=== PATIENT | male | born 1940 | race Caucasian/White ===

== ENCOUNTER 2017-02-27 17:01 | Inpatient (IN) | payer MEDICARE, OTHER ==
[~2017-02-27] VITALS: Ht 188 cm; Wt 94.3 kg
[~2017-02-27 17:01] MED LIST: ATOR10TA PO; ESOM40CA PO; GABA-532 PO; HYDR-548 PO; HYDR12.55 PO; LOSA50TA21 PO; MELO7.5T12 PO; METO-356 PO; METO5TAB7 PO; PRED20TA PO; PREG150C PO; SOLI5TAB2 PO; TAMS0.4C34 PO
[2017-02-27 17:35] LABS: CALCIUM, SERUM 9.6 mg/dL (8.5-10.1); CARBON DIOXIDE 32 mmol/L (21-32); CHLORIDE 96 mmol/L (98-107); CREATININE 1.9 mg/dL (0.6-1.3); GLUCOSE 124 mg/dL (74-106); POTASSIUM 3.4 mmol/L (3.5-5.1); SODIUM SERUM 137 mmol/L (136-145); UREA NITROGEN, BLOOD 50 mg/dL (7-18)
[2017-02-27 17:37] LABS: BASOPHILS # (AUTO) 0.1 /CMM (0.0-0.2); BASOPHILS % (AUTO) 0.3 % (0.0-2.0); EOSINOPHILS # (AUTO) 0.2 /CMM (0.0-0.7); EOSINOPHILS % (AUTO) 0.8 % (0.0-6.0); HEMATOCRIT 40 % (39-51); HEMOGLOBIN 13.7 g/dL (13.5-17.5); LYMPHOCYTES # (AUTO) 0.5 /CMM (0.8-4.8); LYMPHOCYTES % (AUTO) 1.9 % (20.0-44.0); MEAN CORPUSCULAR HEMOGLOBIN 28 PG (26.0-33.0); MEAN CORPUSCULAR HGB CONC 34 g/dl (31.0-36.0); MEAN CORPUSCULAR VOLUME 82 fL (80-96); MONOCYTES # (AUTO) 1.1 /CMM (0.1-1.30); MONOCYTES % (AUTO) 4.2 % (2.0-12.0); NEUTROPHILS # (AUTO) 23.1 /CMM (1.8-8.9); NEUTROPHILS % (AUTO) 92.8 % (43.0-81.0); PLATELET COUNT (AUTO) 153 /CMM (150-450); RDW COEFFICIENT OF VARIATION 14.8 (11.5-15.0); RED BLOOD CELL COUNT(AUTO) 4.92 MIL/uL (4.5-6.0)
[2017-02-27 17:39] LABS: INR 1.06 (0.87-1.13)
[2017-02-27 17:44] LABS: TROPONIN I < 0.017 ng/mL (0.00-0.056)
[2017-02-27] MEDS ORDERED: ASCO500T9 PO (18:24)
[2017-02-27] MEDS ORDERED: DULO20CA PO (18:24)
[2017-02-27] MEDS ORDERED: TADA5TAB2 PO (18:24)
[2017-02-27] MEDS ORDERED: CELE200C PO (18:24)
[2017-02-27] MEDS ORDERED: BACL10TA PO (18:24)
[2017-02-27] MEDS ORDERED: VITA1TAB56 PO (18:24)
[2017-02-27] MEDS ORDERED: VITA400C24 PO (18:24)
[2017-02-27] MEDS ORDERED: OMEP40CA37 PO (18:24)
[2017-02-27] MEDS ORDERED: FURO40TA5 PO (18:24)
[2017-02-27] MEDS ORDERED: DILT360C28 PO (18:24)
[2017-02-27] MEDS ORDERED: POTA10TA15 PO (18:24)
[2017-02-27 18:45] LABS: APPEARANCE,URINE Clear (CLEAR); BILIRUBIN,URINE Negative (NEGATIVE); BLOOD, URINE Trace-lysed Ery/uL (NEGATIVE); COLOR,URINE Yellow (YELLOW); KETONES,URINE Negative (NEGATIVE); LEUKOCYTE ESTERASE ,URINE Negative (NEGATIVE); NITRITE, URINE Negative (NEGATIVE); PROTEIN,URINE Negative (NEGATIVE); UGLUCOSE Negative (NEGATIVE); UROBILINOGEN,URINE 0.2 EU/dL (0.2)
[2017-02-27] MEDS ORDERED: PIPERACILLIN /TAZOBACTAM 3.375 G in IV D5W 50 ML IV ONE (19:00)
[2017-02-27] MEDS ORDERED: IV NS 0.9% 1,000 ML BAG IV ONE ×2 (19:00)
[2017-02-27 19:11] LABS: BACTERIA,URINE Few /HPF (None Seen); SQUAMOUS EPITHELIAL CELL,UR Few /HPF (None Seen); WBC,URINE 0-2 /HPF (0-3)
[2017-02-27 19:20] LABS: BAND % (MANUAL) 19 % (0.0-5.0); MONOCYTES % (MANUAL) 7 % (0-11.0); NEUTROPHILS % (MANUAL) 74 (42-76)
[2017-02-27 19:31] LABS: BILIRUBIN,DIRECT 0.2 mg/dL (0.0-0.2)
[2017-02-27 20:00] VITALS: BP 122/86
[2017-02-27 20:12] VITALS: BP 122/86
[2017-02-27 21:00] VITALS: BP 143/80
[2017-02-27 22:00] VITALS: BP 133/82
[2017-02-27] MEDS ORDERED: DILTIAZEM HCL 30 MG TABLET PO SCH (22:00)
[2017-02-27] MEDS: LOSARTAN POTASSIUM 50 MG TABLET PO SCH (22:00)
[2017-02-27 23:00] VITALS: BP 130/85
[2017-02-27] MEDS: IV 1/2NS 1000 ML 1,000 ML IV PRN (23:41)
[2017-02-27] MEDS ORDERED: DILTIAZEM HCL CD 180 MG PO ONE (23:59)
[2017-02-28] VITALS (11 sets, daily range): BP systolic 104–133; BP diastolic 63–94
[2017-02-28] MEDS ORDERED: DULOXETINE HCL 20 MG CAPSULE.DR ONE
[2017-02-28] MEDS ORDERED: PIPERACILLIN /TAZOBACTAM 3.375 G VIAL IV ONE ×2 (00:01→04:43)
[2017-02-28] MEDS: DULOXETINE HCL 20 MG CAPSULE.DR PO SCH ×2 (00:10→21:47)
[2017-02-28] MEDS: PIPERACILLIN /TAZOBACTAM 3.375 G in IV D5W 50 ML IV SCH ×4 (00:11→17:00)
[2017-02-28] MEDS ORDERED: TAMSULOSIN 0.4 MG CAP.SR.24H ONE (00:16)
[2017-02-28] MEDS: TAMSULOSIN 0.4 MG CAP.SR.24H PO SCH ×2 (00:17→21:43)
[2017-02-28] MEDS ORDERED: METOLAZONE 2.5 MG TABLET PO SCH (09:00)
[2017-02-28] MEDS ORDERED: POTASSIUM CHLORIDE 10 MEQ TABLET.SA PO SCH (09:00)
[2017-02-28] MEDS: CELECOXIB 100 MG CAPSULE PO SCH (09:47)
[2017-02-28] MEDS: BACLOFEN (10 MG) 10 MG TABLET PO SCH (09:48)
[2017-02-28] MEDS: ATORVASTATIN 10 MG TABLET PO SCH (09:48)
[2017-02-28] MEDS: DILTIAZEM HCL CD 300 MG PO SCH (09:57)
[2017-02-28] MEDS: METOLAZONE 2.5 MG TABLET PO SCH (09:57)
[2017-02-28] MEDS ORDERED: AZITHROMYCIN 250 MG TABLET PO ONE (10:00)
[2017-02-28] MEDS: FUROSEMIDE 80 MG TABLET PO SCH (10:16)
[2017-02-28] MEDS: OXYBUTYNIN CHLORIDE 5 MG TABLET PO SCH ×2 (10:21→16:19)
[2017-02-28] MEDS: METOPROLOL SUCCINATE 50 MG TAB.SR.24H PO SCH (10:22)
[2017-02-28 10:25] LABS: CARBON DIOXIDE 30 mmol/L (21-32); CHLORIDE 103 mmol/L (98-107); GLUCOSE 157 mg/dL (74-106); SODIUM SERUM 140 mmol/L (136-145); UREA NITROGEN, BLOOD 30 mg/dL (7-18)
[2017-02-28 10:27] LABS: POTASSIUM 2.8 mmol/L (3.5-5.1)
[2017-02-28 10:52] LABS: HEMATOCRIT 36 % (39-51); LYMPHOCYTES # (AUTO) 0.5 /CMM (0.8-4.8); MEAN CORPUSCULAR HEMOGLOBIN 28 PG (26.0-33.0); MEAN CORPUSCULAR HGB CONC 33 g/dl (31.0-36.0); MEAN CORPUSCULAR VOLUME 83 fL (80-96); MONOCYTES # (AUTO) 0.5 /CMM (0.1-1.30); MONOCYTES % (AUTO) 2.8 % (2.0-12.0); NEUTROPHILS # (AUTO) 16.5 /CMM (1.8-8.9); NEUTROPHILS % (AUTO) 94.2 % (43.0-81.0); PLATELET COUNT (AUTO) 128 /CMM (150-450); RDW COEFFICIENT OF VARIATION 15.8 (11.5-15.0); RED BLOOD CELL COUNT(AUTO) 4.33 MIL/uL (4.5-6.0); WHITE BLOOD COUNT (AUTO) 17.5 K/uL (4.3-11.0)
[2017-02-28] MEDS ORDERED: POTASSIUM CHLORIDE 20 MEQ TAB.PRT.SR PO ONE ×2 (12:30→19:00)
[2017-02-28] MEDS: IV 1/2NS 1000 ML 1,000 ML IV PRN (12:38)
[2017-02-28] MEDS: PREGABALIN 25 MG CAPSULE PO SCH ×2 (12:39→21:42)
[2017-02-28] MEDS: HYDROCODONE/APAP 10/325MG 1 EA TABLET PO SCH ×3 (12:40→21:44)
[2017-02-28] MEDS: PANTOPRAZOLE 40 MG TABLET.DR PO SCH (17:33)
[2017-02-28] MEDS: LOSARTAN POTASSIUM 50 MG TABLET PO SCH (23:16)
[2017-03-01] VITALS: BP 129/81
[2017-03-01 04:00] VITALS: BP 120/79
[2017-03-01] MEDS: PIPERACILLIN /TAZOBACTAM 3.375 G in IV D5W 50 ML IV SCH ×5 (06:08→17:58)
[2017-03-01] MEDS: IV 1/2NS 1000 ML 1,000 ML IV PRN (06:08)
[2017-03-01 06:43] LABS: CALCIUM, SERUM 8.6 mg/dL (8.5-10.1); CARBON DIOXIDE 30 mmol/L (21-32); CHLORIDE 103 mmol/L (98-107); GLUCOSE 94 mg/dL (74-106); SODIUM SERUM 141 mmol/L (136-145); UREA NITROGEN, BLOOD 27 mg/dL (7-18)
[2017-03-01 06:53] LABS: POTASSIUM 2.8 mmol/L (3.5-5.1)
[2017-03-01 08:00] VITALS: BP 146/86
[2017-03-01] MEDS: OXYBUTYNIN CHLORIDE 5 MG TABLET PO SCH ×2 (09:05→17:56)
[2017-03-01] MEDS: ATORVASTATIN 10 MG TABLET PO SCH (09:05)
[2017-03-01] MEDS: AZITHROMYCIN 250 MG TABLET PO SCH (09:05)
[2017-03-01] MEDS: METOLAZONE 2.5 MG TABLET PO SCH (09:05)
[2017-03-01] MEDS: DILTIAZEM HCL CD 300 MG PO SCH (09:05)
[2017-03-01] MEDS: METOPROLOL SUCCINATE 50 MG TAB.SR.24H PO SCH (09:06)
[2017-03-01] MEDS: BACLOFEN (10 MG) 10 MG TABLET PO SCH (09:06)
[2017-03-01] MEDS: CELECOXIB 100 MG CAPSULE PO SCH (09:06)
[2017-03-01] MEDS ORDERED: [UNRECOGNIZED DRUG - OTHER] IV PRN ×2 (09:30)
[2017-03-01] MEDS ORDERED: KCL IV PRN ×2 (09:30)
[2017-03-01] MEDS ORDERED: Z GUARD REMEDY 2 OZ OINT TP PRN (09:30)
[2017-03-01] MEDS: POTASSIUM CHLORIDE 20 MEQ TAB.PRT.SR PO SCH ×2 (10:16→17:56)
[2017-03-01] MEDS: FUROSEMIDE 80 MG TABLET PO SCH (10:17)
[2017-03-01] MEDS: HYDROCODONE/APAP 10/325MG 1 EA TABLET PO SCH ×4 (11:34→21:00)
[2017-03-01] MEDS: PREGABALIN 25 MG CAPSULE PO SCH ×2 (11:34→17:56)
[2017-03-01 16:00] VITALS: BP 113/80
[2017-03-01] MEDS: PANTOPRAZOLE 40 MG TABLET.DR PO SCH (17:56)
[2017-03-01 20:00] VITALS: BP_SYST 102; BP_SYST 103; BP_DIAS 63
[2017-03-01] MEDS: TAMSULOSIN 0.4 MG CAP.SR.24H PO SCH (21:44)
[2017-03-01] MEDS: DULOXETINE HCL 20 MG CAPSULE.DR PO SCH (21:44)
[2017-03-01] MEDS: LOSARTAN POTASSIUM 50 MG TABLET PO SCH (22:00)
[2017-03-02] MEDS: PIPERACILLIN /TAZOBACTAM 3.375 G in IV D5W 50 ML IV SCH ×2 (00:05→05:45)
[2017-03-02] MEDS: PREGABALIN 25 MG CAPSULE PO SCH ×2 (01:04→10:17)
[2017-03-02 04:00] VITALS: BP 146/88
[2017-03-02] MEDS ORDERED: POTASSIUM CHLORIDE IV ONE (04:21)
[2017-03-02] MEDS ORDERED: [UNRECOGNIZED DRUG - OTHER] IV ONE (04:21)
[2017-03-02] MEDS ORDERED: DEXTROSE IV ONE (04:21)
[2017-03-02 05:51] LABS: BASOPHILS % (AUTO) 0.1 % (0.0-2.0); EOSINOPHILS # (AUTO) 0.2 /CMM (0.0-0.7); EOSINOPHILS % (AUTO) 2.5 % (0.0-6.0); HEMATOCRIT 37 % (39-51); HEMOGLOBIN 12.5 g/dL (13.5-17.5); LYMPHOCYTES # (AUTO) 1.1 /CMM (0.8-4.8); LYMPHOCYTES % (AUTO) 14.4 % (20.0-44.0); MEAN CORPUSCULAR HEMOGLOBIN 28 PG (26.0-33.0); MEAN CORPUSCULAR HGB CONC 34 g/dl (31.0-36.0); MEAN CORPUSCULAR VOLUME 83 fL (80-96); MONOCYTES # (AUTO) 0.6 /CMM (0.1-1.30); MONOCYTES % (AUTO) 8.1 % (2.0-12.0); NEUTROPHILS # (AUTO) 5.8 /CMM (1.8-8.9); NEUTROPHILS % (AUTO) 74.9 % (43.0-81.0); PLATELET COUNT (AUTO) 143 /CMM (150-450); RDW COEFFICIENT OF VARIATION 15.5 (11.5-15.0); RED BLOOD CELL COUNT(AUTO) 4.49 MIL/uL (4.5-6.0); WHITE BLOOD COUNT (AUTO) 7.8 K/uL (4.3-11.0)
[2017-03-02 06:01] LABS: CALCIUM, SERUM 8.6 mg/dL (8.5-10.1); CARBON DIOXIDE 32 mmol/L (21-32); CHLORIDE 101 mmol/L (98-107); GLUCOSE 98 mg/dL (74-106); POTASSIUM 3.1 mmol/L (3.5-5.1); SODIUM SERUM 139 mmol/L (136-145); UREA NITROGEN, BLOOD 21 mg/dL (7-18)
[2017-03-02 08:00] VITALS: BP 146/83
[2017-03-02] MEDS: ATORVASTATIN 10 MG TABLET PO SCH (08:51)
[2017-03-02] MEDS: DILTIAZEM HCL CD 300 MG PO SCH (08:51)
[2017-03-02] MEDS: OXYBUTYNIN CHLORIDE 5 MG TABLET PO SCH (08:51)
[2017-03-02] MEDS: FUROSEMIDE 80 MG TABLET PO SCH (08:51)
[2017-03-02] MEDS: POTASSIUM CHLORIDE 20 MEQ TAB.PRT.SR PO SCH (08:51)
[2017-03-02] MEDS: CELECOXIB 100 MG CAPSULE PO SCH (08:51)
[2017-03-02] MEDS: AZITHROMYCIN 250 MG TABLET PO SCH (08:51)
[2017-03-02] MEDS: METOLAZONE 2.5 MG TABLET PO SCH (08:51)
[2017-03-02] MEDS: BACLOFEN (10 MG) 10 MG TABLET PO SCH (08:52)
[2017-03-02 08:53] VITALS: BP 146/86
[2017-03-02] MEDS: METOPROLOL SUCCINATE 50 MG TAB.SR.24H PO SCH (08:53)
[2017-03-02] MEDS ORDERED: PNEUMOCOCCAL 23-VAL P-SAC VAC 0.5 ML VIAL SQ ONE (09:00)
[2017-03-02] MEDS ORDERED: FLU VACC QS 2017-18(36MOS+)/PF 0.5 ML DISP.SYRIN IM ONE (09:00)
[2017-03-02] MEDS: HYDROCODONE/APAP 10/325MG 1 EA TABLET PO SCH (10:18)
== END 2017-03-02 12:10 | disposition home or self-care (01) | DRG 871 ==
LOC: ER 17:03 → TELE-TD 19:56 → MEDSG1 20:56
PROVIDERS: ADMIT Family Medicine; ATTEND Family Medicine
DX: A41.9 Sepsis, unspecified organism (principal); J18.9 Pneumonia, unspecified organism; G93.41 Metabolic encephalopathy; I48.91 Unspecified atrial fibrillation; W01.0XXA Fall on same level from slipping, tripping and stumbling without subsequent striking against object, initial encounter; I10 Essential (primary) hypertension; K21.9 Gastro-esophageal reflux disease without esophagitis; N40.0 Benign prostatic hyperplasia without lower urinary tract symptoms; S06.0X0A Concussion without loss of consciousness, initial encounter; Y93.9 Activity, unspecified; Y92.009 Unspecified place in unspecified non-institutional (private) residence as the place of occurrence of the external cause; M54.5 Low back pain
CPT/HCPCS: 36415; 70450-TC; 71010-TC; 80048-TC; 81000-TC; 82247-TC; 82248-TC; 83605-TC; 84443-TC; 84484-TC; 85025-TC; 85730-TC; 87040-TC; 87081-TC; 90732; A4349; A4606; A6253; A6402; J2543; J3480; J3490; J7030; J7040; J7060; Q2036; Z7610

== ENCOUNTER 2017-03-09 11:58 | Outpatient (CLI) | payer MEDICARE, OTHER ==
[~2017-03-09 11:58] MED LIST changes: +ASCO500T9 PO; +BACL10TA PO; +CELE200C PO; +DILT360C28 PO; +DULO20CA PO; -ESOM40CA PO; +FURO40TA5 PO; -GABA-532 PO; -HYDR12.55 PO; -MELO7.5T12 PO; +OMEP40CA37 PO; +POTA10TA15 PO; -PRED20TA PO; +TADA5TAB2 PO; +VITA1TAB56 PO; +VITA400C24 PO
[2017-03-09 12:08] VITALS: BP 122/77
== END 2017-03-09 23:59 | disposition home or self-care (01) ==
LOC: MSC 11:58
PROVIDERS: ATTEND Internal Medicine
DX: J18.1 Lobar pneumonia, unspecified organism (principal); M54.5 Low back pain; G89.29 Other chronic pain; N40.0 Benign prostatic hyperplasia without lower urinary tract symptoms; I10 Essential (primary) hypertension; F32.9 Major depressive disorder, single episode, unspecified; I25.10 Atherosclerotic heart disease of native coronary artery without angina pectoris; F41.9 Anxiety disorder, unspecified

== ENCOUNTER 2017-07-27 07:26 | Inpatient (IN) | payer MEDICARE, OTHER ==
[~2017-07-27] VITALS: Ht 188 cm; Wt 102.1 kg
[2017-07-27] VITALS (21 sets, daily range): BP systolic 94–131; BP diastolic 55–84
--- NOTE | 2017-07-27 07:30 | NUR ---
AAOX3, BIBRA FROM HOME C/O GLF. PATIENT HAS NO MEMORY OF EVENTS BUT STATES THAT IT HAPPENED AROUND 4AM-5AM WHILE HE WAS IN THE BATHROOM. PATIENT WAS NOTICED ONLY AROUND 7AM BY . SPO2=78% ON RA, PLACED ON NC AT 3L/MIN. CURRENT SPO2=96%. DENIES ANY CHEST PAIN OR SOB. PLACED ON THE MONITOR. DR VINES AT FOR EVAL.
[2017-07-27] MEDS ORDERED: TDAP [DIPH/PERTUSSIS/TET] 0.5 ML VIAL IM ONE ×2 (07:52→08:00)
[2017-07-27 08:00] LABS: HEMATOCRIT 33 % (39-51); HEMOGLOBIN 11.3 g/dL (13.5-17.5); LYMPHOCYTES # (AUTO) 0.4 /CMM (0.8-4.8); LYMPHOCYTES % (AUTO) 3.6 % (20.0-44.0); MEAN CORPUSCULAR HGB CONC 34 g/dl (31.0-36.0); MEAN CORPUSCULAR VOLUME 86 fL (80-96); MONOCYTES # (AUTO) 0.8 /CMM (0.1-1.30); MONOCYTES % (AUTO) 7.2 % (2.0-12.0); NEUTROPHILS # (AUTO) 9.6 /CMM (1.8-8.9); NEUTROPHILS % (AUTO) 89.2 % (43.0-81.0); PLATELET COUNT (AUTO) 140 /CMM (150-450); RDW COEFFICIENT OF VARIATION 16.6 (11.5-15.0); RED BLOOD CELL COUNT(AUTO) 3.83 MIL/uL (4.5-6.0); WHITE BLOOD COUNT (AUTO) 10.8 K/uL (4.3-11.0)
[2017-07-27] MEDS ORDERED: IV NS 0.9% 1,000 ML BAG IV ONE ×3 (08:00→10:00)
[2017-07-27 08:12] LABS: CALCIUM, SERUM 8.4 mg/dL (8.5-10.1); CARBON DIOXIDE 30 mmol/L (21-32); CHLORIDE 99 mmol/L (98-107); GLUCOSE 117 mg/dL (74-106); POTASSIUM 3.3 mmol/L (3.5-5.1); SODIUM SERUM 134 mmol/L (136-145); UREA NITROGEN, BLOOD 20 mg/dL (7-18)
[2017-07-27 08:17] LABS: ALANINE AMINOTRANSFERASE 23 U/L (12-78); ALBUMIN 3.1 g/dL (3.4-5.0); ALCOHOL, BLOOD < 3 mg/dL (0-0); ALKALINE PHOSPHATASE 55 U/L (46-116); ASPARTATE AMINOTRANSFERASE 16 U/L (15-37); BILIRUBIN,DIRECT 0.1 mg/dL (0.0-0.2); BILIRUBIN,TOTAL 0.7 mg/dL (0.2-1.0); TOTAL PROTEIN, SERUM 5.8 g/dL (6.4-8.2)
--- NOTE | 2017-07-27 08:20 | NUR ---
XRAY IN PROGRESS AT BS
[2017-07-27 08:23] LABS: B-TYPE NATRIURETIC PEPTIDE 4196 PG/ML (0-125)
[2017-07-27 08:26] LABS: CREATINE KINASE, TOTAL 135 U/L (39-308)
[2017-07-27 08:33] LABS: INR 1.05 (0.87-1.13)
[2017-07-27 08:34] LABS: TROPONIN I 0.427 ng/mL (0.00-0.056)
--- NOTE | 2017-07-27 08:35 | NUR ---
PATIENT TRANSPORTED FOR CT VIA GURNEY.
[2017-07-27] MEDS ORDERED: MYRBETRIQ PO (09:00)
[2017-07-27] MEDS ORDERED: TRAZ-214 PO (09:00)
[2017-07-27] MEDS ORDERED: GABA-534 PO (09:00)
[2017-07-27] MEDS ORDERED: ASPIRIN 325 MG TABLET PO ONE (09:30)
[2017-07-27] MEDS ORDERED: CEFTRIAXONE 1GM BAG (ER ONLY) 1 GM/50 ML PIGGYBACK IV ONE (09:30)
[2017-07-27] MEDS ORDERED: AZITHROMYCIN 500 MG in IV D5W 250 ML IV ONE (09:30)
--- NOTE | 2017-07-27 09:32 | NUR ---
CARDIOLOGY CONTACT, . DR. VINES ON PHONE WITH DEPUTY PROGRAM MANAGER.
[2017-07-27] MEDS ORDERED: CEFTRIAXONE 1GM BAG (ER ONLY) 50 ML IV ONE (09:38)
[2017-07-27] MEDS ORDERED: ASPIRIN 325 MG TABLET ONE (09:39)
--- NOTE | 2017-07-27 09:40 | NUR ---
C-Collar removed PER ER MD ORDER. Patient able to move all extremities.
--- NOTE | 2017-07-27 11:26 | NUR ---
REPORT GIVEN TO STEPH RIVERO FOR [facility] ICU 262
--- NOTE | 2017-07-27 12:07 | NUR ---
RECEIVED PATIENT A/OX4 ON SIMPLE FACE MASK 6LPM 97%. PATIENT DENIES PAIN, SOB, DIFFICULTY BREATHING AT THIS TIME. PER ER REPORT PATIENT NOTED WITH ELEVATED TROPONINS 0.4 AND POSSIBLE PNA. ASA, NS BOLUS, AND AX GIVEN IN ER. PATIENT IV SITE CLEAN DRY AND INTACT. TELE MONITOR CONTROLLED AFIB 70'S. BED BATH COMPLETED STOOL IS STILL ON PATIENT. BP STABLE AT THIS TIME. ALL NEEDS IN REACH. SAFETY PRECAUTIONS IN PLACE. DR QUINN AWARE OF ADMISSION WILL SEE PATIENT
--- NOTE | 2017-07-27 13:03 | NUR ---
DR QUINN AT BEDSIDE. UPDATED ON PATIENT CONDITION. WITH ACTIVITY WITHOUT OXYGEN PATIENT O2 SAT DROPS TO 60'S% AND UNABLE TO TOLERATE NC. O2 SAT STABLE ON SIMPLE FACE MASK AT 6-8% DEPENDING ON ACTIVITY.
--- NOTE | 2017-07-27 14:08 | NUR ---
SPOKE WITH DR QUINN TO CLARIFY HYDROCODONE ORDER. PER GIVE 2 - NORCO BIJAL QID PO. ORDER ADDED PER
--- NOTE | 2017-07-27 14:15 | NUR ---
PER DR QUINN ORDER SCD PUMPS FOR PATIENT
[2017-07-27] MEDS: HYDROCODONE/APAP 10/325MG 1 EA TABLET PO SCH ×3 (14:30→22:11)
--- NOTE | 2017-07-27 14:54 | NUR ---
DR MONTALVO AT BEDSIDE. UPDATED ON PATIENT VS AND LABS.
--- NOTE | 2017-07-27 14:55 | NUR ---
HOLDING ADMIN OF 1430 NORCO PATIENT IS SLEEPING COMFORTABLY.
--- NOTE | 2017-07-27 15:03 | NUR ---
DR MONTALVO AWARE OF PATIENT NEW TROP 0.518. NO NEW ORDERS
--- NOTE | 2017-07-27 15:15 | NUR ---
PER DR MONTALVO NO NEW ORDERS. CONTINUE TO HOLD ANTICOAGS FOR NOW
[2017-07-27] MEDS: POTASSIUM CL. PREMIX PERIPHER. 50 ML IV SCH ×2 (15:23→16:19)
[2017-07-27] MEDS: FUROSEMIDE 20 MG/2 ML VIAL IV SCH (16:15)
--- NOTE | 2017-07-27 16:29 | NUR ---
PER DR QUINN ORDER DILTIAZEM ER 360MG DAILY PO FOR PATIENT. ALSO RESUME PATIENT LYRICA HOME MEDICATION 150MG PO TID BIJAL TO GIVE WITH NORCO.
[2017-07-27] MEDS: PREGABALIN 25 MG CAPSULE PO SCH (16:47)
--- NOTE | 2017-07-27 18:39 | NUR ---
ALL DUE MEDS GIVEN AND ALL NEEDS MET. PATIENT NEED IN REACH. EATING DINNER INDEPENDENTLY. NO S/S ASPIRATION. PATIENT WITH SCD'S PER MD. AND URINATING S/P LASIX IN URINAL. PATIENT CURRENTLY WITH NC 4LPM AT 97%. O2 SAT LABILE DEPENDING ON ACTIVITY. MONITORING CLOSELY. PATIENT COUGH PRESENT WITHOUT SPUTUM. TROPS TRENDING DOWN. CALL LIGHT IN REACH. CARE WILL BE ENDORSED TO RN FOR MERISSA. PATIENT VS STABLE AT THIS TIME. CONTINUING TO HOLD ANTICOAGS PER DR MARQUEZ.
--- NOTE | 2017-07-27 21:00 | NUR ---
RN NOTES RECEIVED ENDORSEMENT FROM STEPH DÍAZ. PATIENT IS SLEEPING COMFORTABLY IN BED, NO DISTRESS, ON 4LPM OF O2 VIA NC, RESPIRATION EVEN AND UNLABORED. AROUSABLE WITH VERBAL AND TACTILE STIMULI. ALERT AND ORIENTED X4, DENIES ANY DISCOMFORT. CONTROLLED AFIB ON TELE. NEEDS ANTICIPATED AND MET. SAFETY AND COMFORT ENSURED. BED IN LOW AND LOCKED POSITION. CALL LIGHT IN REACH. BED ALARM IN PLACE. ON CLOSE MONITORING
[2017-07-27] MEDS: DUTASTERIDE (0.5 MG) 0.5 MG CAPSULE PO SCH (22:27)
[2017-07-28] VITALS (23 sets, daily range): BP systolic 99–156; BP diastolic 40–110
[2017-07-28 04:59] LABS: APPEARANCE,URINE CLEAR (CLEAR); BILIRUBIN,URINE NEGATIVE (NEGATIVE); BLOOD, URINE NEGATIVE Ery/uL (NEGATIVE); COLOR,URINE YELLOW (YELLOW); KETONES,URINE NEGATIVE (NEGATIVE); LEUKOCYTE ESTERASE ,URINE NEGATIVE (NEGATIVE); NITRITE, URINE NEGATIVE (NEGATIVE); PH,URINE 6.5 (5.0-8.0); PROTEIN,URINE NEGATIVE (NEGATIVE); UGLUCOSE NEGATIVE (NEGATIVE); UROBILINOGEN,URINE 0.2 EU/dL (0.2)
--- NOTE | 2017-07-28 07:30 | NUR ---
RECEIVED PATIENT A/OX3 STABLE ON NASAL CANNULA 4LPM 96%. ALL NEEDS IN REACH. SAFETY PRECAUTIONS IN PLACE. PATIENT STATES NO NEEDS AT THIS TIME. AFIB CONTROLLED. VS STABLE. PATIENT STATES CHRONIC GENERALIZED PAIN BUT STATES HE WILL WAIT FOR NORCO ADMIN. WILL ROUND PRN
--- NOTE | 2017-07-28 07:45 | NUR ---
DR BELTRAN AT BEDSIDE FOR CONSULTATION. NO NEW ORDERS
[2017-07-28] MEDS: POTASSIUM CHLORIDE 10 MEQ TABLET.SA PO SCH (08:11)
[2017-07-28] MEDS: FUROSEMIDE 20 MG/2 ML VIAL IV SCH ×2 (08:11→17:01)
[2017-07-28] MEDS: PREGABALIN 25 MG CAPSULE PO SCH ×3 (08:11→17:01)
[2017-07-28] MEDS: HYDROCODONE/APAP 10/325MG 1 EA TABLET PO SCH ×4 (08:11→21:15)
[2017-07-28] MEDS: ATORVASTATIN 40 MG TABLET PO SCH (08:11)
[2017-07-28] MEDS: METOPROLOL SUCCINATE 50 MG TAB.SR.24H PO SCH (08:23)
[2017-07-28] MEDS: DILTIAZEM HCL CD 180 MG PO SCH (08:23)
--- NOTE | 2017-07-28 08:30 | NUR ---
RECEIVED REPORT FROM JOSEFA CHOI FOR MERISSA. PT STABLE NO C/O PAIN. WILL CONTINUE TO MONITOR CLOSELY. ALL SAFETY MEASURES IN PLACE. PT FALL RISK.
--- NOTE | 2017-07-28 08:33 | NUR ---
CARE ENDORSED TO STEPH JORGENSEN FOR MERISSA
--- NOTE | 2017-07-28 08:53 | NUR ---
WOUND CARE CONSULT: PT PRESENTS WITH VERY FRAGILE SKIN WITH MULTIPLE DISCOLORATIONS AND BRUISES, LEFT HAND SKIN TEAR, LEFT 5TH TOE BRUISE, ESCHARS TO TOES AND RT GREAT TOE FLUID FILLED BLISTER, ALL PRESENT ON ADMISSION. PT IS CONTINENT AT THIS TIMES AND USES BEDSIDE COMMODE WITH ASSISTANCE. ALL WOUND CARE RECOMMENDATIONS AND SKIN PROTECTION MEASURES IN PLACE AND DISCUSSED WITH NURSING STAFF. RECOMMEND PODIATRY CONSULT. WILL SEE PRN. KING IN AGREEMENT WITH PLAN OF CARE. Addendum: 07/28/17 at 0856 by SYLVESTER BRYSON WNDNU Amended: Links added.
[2017-07-28] MEDS ORDERED: TAMSULOSIN 0.4 MG CAP.SR.24H PO SCH ×2 (09:00→22:00)
[2017-07-28] MEDS ORDERED: Z GUARD REMEDY 2 OZ OINT TP PRN (09:00)
[2017-07-28] MEDS ORDERED: LOSARTAN POTASSIUM 50 MG TABLET PO SCH (09:00)
[2017-07-28] MEDS ORDERED: FUROSEMIDE 40 MG TABLET PO SCH (09:00)
--- NOTE | 2017-07-28 10:15 | NUR ---
MASTER BREWER NOTE: CALLED DR. BOWER OFFICE [phone] SPOKE TO ERIN. REPORTED NO LAB DRAWN FOR TODAY AND NO ABX ORDER. AWAITING CALL BACK IN REGARDS TO CLARIFICATION ON ORDERS.
--- NOTE | 2017-07-28 10:22 | NUR ---
CAN RUNNER NOTE: DR BOWER CALLED BACK NO LABS FOR TODAY ONLY TROP ORDERED. ORDERED 1 GRAM OF ROCEPHIN DAILY.
--- NOTE | 2017-07-28 12:16 | NUR ---
LENS MOLD SETTER NOTE: DR MONTALVO @ BEDSIDE ORDERED STAT CBC AND BMP.
[2017-07-28] MEDS: CEFTRIAXONE 1 G in IV D5W 50 ML IV SCH (12:37)
[2017-07-28 13:00] LABS: EOSINOPHILS % (AUTO) 0.2 % (0.0-6.0); HEMATOCRIT 32 % (39-51); HEMOGLOBIN 11.1 g/dL (13.5-17.5); LYMPHOCYTES # (AUTO) 0.3 /CMM (0.8-4.8); LYMPHOCYTES % (AUTO) 4.1 % (20.0-44.0); MEAN CORPUSCULAR HGB CONC 35 g/dl (31.0-36.0); MEAN CORPUSCULAR VOLUME 86 fL (80-96); MONOCYTES # (AUTO) 0.6 /CMM (0.1-1.30); MONOCYTES % (AUTO) 8.3 % (2.0-12.0); NEUTROPHILS # (AUTO) 6.3 /CMM (1.8-8.9); NEUTROPHILS % (AUTO) 87.4 % (43.0-81.0); PLATELET COUNT (AUTO) 127 /CMM (150-450); RDW COEFFICIENT OF VARIATION 16.6 (11.5-15.0); RED BLOOD CELL COUNT(AUTO) 3.75 MIL/uL (4.5-6.0); WHITE BLOOD COUNT (AUTO) 7.2 K/uL (4.3-11.0)
[2017-07-28 13:09] LABS: CALCIUM, SERUM 8.5 mg/dL (8.5-10.1); CARBON DIOXIDE 31 mmol/L (21-32); CHLORIDE 102 mmol/L (98-107); CREATININE 0.8 mg/dL (0.6-1.3); GLUCOSE 126 mg/dL (74-106); POTASSIUM 3.9 mmol/L (3.5-5.1); SODIUM SERUM 137 mmol/L (136-145); UREA NITROGEN, BLOOD 11 mg/dL (7-18)
[2017-07-28] MEDS: ASPIRIN 81 MG TAB.CHEW PO SCH (13:29)
--- NOTE | 2017-07-28 18:57 | NUR ---
RN NOTES RECEIVED PT ON BED FROM ICU, PT IS A/OX3, ON 4L O2 N/C , RESPIRATION EVEN AND UNLABORED, VSS STABLE , WILL ENDOSE TO BUSINESS ASST NURSE FOR MERISSA
--- NOTE | 2017-07-28 18:58 | NUR ---
OPERATIONS LABEL CLERK NOTE: TRANSFERRED PATIENT TO [facility] REPORT GIVEN TO AVELINO CHOI. PT STABLE TAKEN VIA GURNEY. ALL ORDERS CARRIED OUT. CHART, BELONGING AND CANE TAKE WITH PATIENT.
--- NOTE | 2017-07-28 19:15 | NUR ---
SURGICAL TRAINING SPECIALIST NOTE RECEIVED PATIENT RESTING COMFORTABLY IN BED, AOX4, SPEECH CLEAR, ABLE TO MAKE NEEDS KNOWN, TELE MONITOR CONTROLLED AFIB, ON OXYGEN 4L VIA NC, TOLERATING WELL, NO CARDIAC OR RESPIRATORY DISTRESS, DENIES HAVING PAIN. AMBULATORY WITH ASSIST, SKIN KEPT CLEAN AND DRY, RAC # 18 PATENT FLUSHING WELL SL, SITE CDI. SAFETY MAINTAINED AT ALL TIMES, BED IN LOW LOCKED POSITION, CALL LIGHT WITHIN REACH, WILL CONTINUE TO MONITOR FOR ANY CHANGES IN CONDITION.
[2017-07-28] MEDS: DUTASTERIDE (0.5 MG) 0.5 MG CAPSULE PO SCH (21:06)
[2017-07-29] VITALS: BP 116/81
[2017-07-29 04:00] VITALS: BP 127/73
--- NOTE | 2017-07-29 07:00 | NUR ---
PROFESSOR OF HISTORY OPENING NOTE RECEIVED PATIENT RESTING COMFORTABLY IN BED, AOX4, SPEECH CLEAR, ABLE TO MAKE NEEDS KNOWN, TELE MONITOR CONTROLLED AFIB OF 90, ON OXYGEN 4L VIA NC, TOLERATING WELL, NO CARDIAC OR RESPIRATORY DISTRESS, DENIES PAIN., IV RAC # 18 PATENT FLUSHING WELL , SITE CDI. SAFETY MAINTAINED A, BED IN LOW LOCKED POSITION, CALL LIGHT WITHIN REACH, SAFETY MAINTAINED .WILL CONTINUE TO MONITOR .
[2017-07-29 08:00] VITALS: BP 143/77
[2017-07-29] MEDS: FUROSEMIDE 20 MG/2 ML VIAL IV SCH (08:11)
[2017-07-29] MEDS: POTASSIUM CHLORIDE 10 MEQ TABLET.SA PO SCH (08:12)
[2017-07-29] MEDS: HYDROCODONE/APAP 10/325MG 1 EA TABLET PO SCH ×2 (08:13→12:24)
[2017-07-29] MEDS: METOPROLOL SUCCINATE 50 MG TAB.SR.24H PO SCH (08:14)
[2017-07-29] MEDS: ASPIRIN 81 MG TAB.CHEW PO SCH (08:14)
[2017-07-29] MEDS: DILTIAZEM HCL CD 180 MG PO SCH (08:14)
[2017-07-29] MEDS: ATORVASTATIN 40 MG TABLET PO SCH (08:14)
[2017-07-29] MEDS: PREGABALIN 25 MG CAPSULE PO SCH ×2 (08:18→12:25)
[2017-07-29] MEDS ORDERED: METOLAZONE 2.5 MG TABLET PO SCH (10:30)
[2017-07-29 12:00] VITALS: BP 125/77
[2017-07-29] MEDS: CEFTRIAXONE 1 G in IV D5W 50 ML IV SCH (12:24)
--- NOTE | 2017-07-29 15:00 | NUR ---
RN NOTE GOT DISCHARGE ORDER FROM .PATIENT MADE AWARE.HE SAID HE WILL LET ME KNOW THE TIME H WANT TO GO HOME.HE GOT UPSET WITH NURSE AND WANT DISCHARGE RIGHT AWAY.PAPER WORK DONE.PATIENT SIGNED PAPER WORK AND WAS SO UPSET .DONT WANT TO TAKE O2 TO TAKE HOME.EXPLAINED RISK AND BENEFIT OF THE OXYGEN THERAPY.CONTINUE TO MONITOR.
--- NOTE | 2017-07-29 15:55 | NUR ---
DISCHARGE NOTE PATIENT IS ABOUT TO DISCHARGE HOME VITAL SIGNS STABLE,O2 SATURATION IS 87-89% IN ROOM AIR.PATIENT STATED THAT HE HAS OXYGEN AT HOME AND HOME HEALTH NURSE COMES HOME FOR FOLLOW UP.HE SAID HE GO HOME BY UBER AND LATER AT THE END OF DISCHARGE HE SAID HIS WILL COME AND PICK HIM UP.DR COUCH MADE AWARE ABOUT THE PATIENT CONDITION.OFFERED AMBULANCE TRANSPORTATION BY LINE SERVICE PERSON BECAUSE OF OXYGEN NEED PATIENT REFUSED AMBULANCE OFFERED OXYGEN TANK TO TAKE HOME FOR TRANSPORTATION HE SAID THAT ITS KIND IF BUSINESS THAT OXYGEN TANK TAKING HOME.HE REFUSED IT.PATIENT LEFT VIA PRIVATE CAR WITH .NO SOB NO DISTRESS NOTICED.INFORMED TO START OXYGEN THERAPY ONCE HE GET HOME.ALL BELONGINGS AND DISCHARGE INSTRUCTIONS GIVEN TO THE PATIENT.
--- NOTE | 2017-07-29 16:00 | NUR ---
RN NOTE CASE MANAGEMENT GINA MADE AWARE ABOUT THE PATIENT LEFT WITH OUT OXYGEN ,CASE MANAGEMENT STATED THAT HE HAS OXYGEN AT HOME.
[2017-07-30] MEDS ORDERED: FUROSEMIDE 40 MG TABLET PO SCH (09:00)
== END 2017-07-29 16:00 | disposition home or self-care (01) | DRG 280 ==
LOC: ER 07:27 → ICU 11:25 → TELE1 07-28 18:45
PROVIDERS: ADMIT Family Medicine; ATTEND Family Medicine
DX: I21.4 Non-ST elevation (NSTEMI) myocardial infarction (principal); J18.9 Pneumonia, unspecified organism; J96.01 Acute respiratory failure with hypoxia; I50.33 Acute on chronic diastolic (congestive) heart failure; E11.40 Type 2 diabetes mellitus with diabetic neuropathy, unspecified; I48.2 Chronic atrial fibrillation; L89.611 Pressure ulcer of right heel, stage 1; I11.0 Hypertensive heart disease with heart failure; D64.9 Anemia, unspecified; E11.9 Type 2 diabetes mellitus without complications; J98.11 Atelectasis; R55 Syncope and collapse; Z87.891 Personal history of nicotine dependence; Z86.73 Personal history of transient ischemic attack (TIA), and cerebral infarction without residual deficits; L60.3 Nail dystrophy; K21.9 Gastro-esophageal reflux disease without esophagitis; N40.0 Benign prostatic hyperplasia without lower urinary tract symptoms; M19.90 Unspecified osteoarthritis, unspecified site; F32.9 Major depressive disorder, single episode, unspecified; G89.29 Other chronic pain; I35.0 Nonrheumatic aortic (valve) stenosis; R23.4 Changes in skin texture; S90.424A Blister (nonthermal), right lesser toe(s), initial encounter; X58.XXXA Exposure to other specified factors, initial encounter; Y93.9 Activity, unspecified; Y92.009 Unspecified place in unspecified non-institutional (private) residence as the place of occurrence of the external cause
CPT/HCPCS: 36415; 70450-TC; 71045-TC; 71250-TC; 72125-TC; 72131-TC; 72170-TC; 73130-TC; 73630-TC; 80048-TC; 80076-TC; 80305; 81000-TC; 82550-TC; 83605-TC; 83880; 84484-TC; 85025-TC; 85730-TC; 87040-TC; 87081-TC; 87086-TC; 90715; A4606; A6402; A6403; G0480; J0456; J0696; J1940; J3480; J7030; J7050; J7060; L0172; Z7610

== ENCOUNTER 2017-11-15 09:06 | Inpatient (IN) | payer MEDICARE, OTHER ==
[~2017-11-15] VITALS: Ht 157.5 cm; Wt 89.4 kg
[2017-11-15] VITALS (12 sets, daily range): BP systolic 85–167; BP diastolic 54–99
[~2017-11-15 09:06] MED LIST changes: -ASCO500T9 PO; -CELE200C PO; -FURO40TA5 PO; +GABA-534 PO; +MYRBETRIQ PO; -OMEP40CA37 PO; -POTA10TA15 PO; -TADA5TAB2 PO; +TRAZ-214 PO; -VITA1TAB56 PO; -VITA400C24 PO
--- NOTE | 2017-11-15 09:06 | NUR ---
BIB RA FROM HOME, FOUND BY ON A COUCH,MORE ALTERED THAN NORMAL, LAST SEEN WELL SOMETIME LAST NIGHT PER ,BLOOD SUGAR 171, NAD NOTED, VSS, RESP EVEN AND UNLABORED, PT WAS PUT ON MONITOR, AT .
[2017-11-15] MEDS ORDERED: ACETAMINOPHEN ES 500 MG TABLET ONE (09:29)
[2017-11-15] MEDS ORDERED: ACETAMINOPHEN ES 500 MG TABLET PO ONE (09:30)
[2017-11-15] MEDS ORDERED: IV NS 0.9% 1,000 ML BAG IV ONE ×2 (09:30)
[2017-11-15] MEDS ORDERED: VANCOMYCIN 1 GM in IV D5W 250 ML IV ONE (09:30)
[2017-11-15] MEDS ORDERED: MEROPENEM 1 G in IV NS 0.9% 100 ML IV ONE (09:30)
[2017-11-15 09:36] LABS: HEMATOCRIT 41 % (39-51); HEMOGLOBIN 13.6 g/dL (13.5-17.5); LYMPHOCYTES # (AUTO) 0.3 /CMM (0.8-4.8); LYMPHOCYTES % (AUTO) 1.9 % (20.0-44.0); MEAN CORPUSCULAR HEMOGLOBIN 28 PG (26.0-33.0); MEAN CORPUSCULAR HGB CONC 33 g/dl (31.0-36.0); MEAN CORPUSCULAR VOLUME 85 fL (80-96); MONOCYTES # (AUTO) 1.1 /CMM (0.1-1.30); NEUTROPHILS # (AUTO) 14.7 /CMM (1.8-8.9); NEUTROPHILS % (AUTO) 91.1 % (43.0-81.0); PLATELET COUNT (AUTO) 165 /CMM (150-450); RDW COEFFICIENT OF VARIATION 14.9 (11.5-15.0); RED BLOOD CELL COUNT(AUTO) 4.83 MIL/uL (4.5-6.0); WHITE BLOOD COUNT (AUTO) 16.1 K/uL (4.3-11.0)
[2017-11-15 09:46] LABS: APPEARANCE,URINE Clear (CLEAR); BILIRUBIN,URINE SMALL (NEGATIVE); BLOOD, URINE Moderate Ery/uL (NEGATIVE); COLOR,URINE Yellow (YELLOW); KETONES,URINE 15 (NEGATIVE); LEUKOCYTE ESTERASE ,URINE Negative (NEGATIVE); NITRITE, URINE Negative (NEGATIVE); PH,URINE 6.5 (5.0-8.0); PROTEIN,URINE 100 mg/dl (NEGATIVE); UGLUCOSE Negative (NEGATIVE)
[2017-11-15 09:52] LABS: INR 1.21 (0.87-1.13)
[2017-11-15 10:02] LABS: ALANINE AMINOTRANSFERASE 24 U/L (12-78); ALBUMIN 3.8 g/dL (3.4-5.0); ALKALINE PHOSPHATASE 55 U/L (46-116); ASPARTATE AMINOTRANSFERASE 77 U/L (15-37); BILIRUBIN,DIRECT 0.7 mg/dL (0.0-0.2); BILIRUBIN,TOTAL 3.3 mg/dL (0.2-1.0); CALCIUM, SERUM 9.3 mg/dL (8.5-10.1); CARBON DIOXIDE 33 mmol/L (21-32); CHLORIDE 98 mmol/L (98-107); GLUCOSE 157 mg/dL (74-106); POTASSIUM 2.4 mmol/L (3.5-5.1); SODIUM SERUM 143 mmol/L (136-145); TOTAL PROTEIN, SERUM 7.5 g/dL (6.4-8.2); UREA NITROGEN, BLOOD 25 mg/dL (7-18)
[2017-11-15] MEDS ORDERED: POTASSIUM CHLORIDE 10 MEQ/50 ML PREMIXED IVPB FOR PERIPHERAL LINE IV ONE (10:30)
[2017-11-15 10:34] LABS: BACTERIA,URINE Few /HPF (None Seen); SQUAMOUS EPITHELIAL CELL,UR Few /HPF (None Seen)
--- NOTE | 2017-11-15 10:34 | NUR ---
PT BACK FROM CTSCAN, UNABLE TO FINISH CTSCAN -MD MADE AWARE.
[2017-11-15] MEDS ORDERED: POTASSIUM CL. PREMIX PERIPHER. 100 ML ONE (10:35)
[2017-11-15] MEDS ORDERED: OMEP40CA37 PO (10:36)
[2017-11-15] MEDS ORDERED: POTA20TA83 PO (10:36)
[2017-11-15] MEDS ORDERED: FINA5TAB3 PO (10:36)
[2017-11-15] MEDS ORDERED: PRED20TA PO (10:36)
[2017-11-15] MEDS ORDERED: FURO40TA5 PO (10:36)
[2017-11-15] MEDS ORDERED: MONT10TA22 PO (10:36)
--- NOTE | 2017-11-15 11:45 | NUR ---
CLINICAL EDUCATION MANAGER- Initial Admitting Note Received pt from ER via racheal. Pt a/o x1-2. On 2L NC, respirations even and unlabored, no SOB or distress present. Bedside monitor reveals A-Fib. IVs present: 1) RAC 20G, 2) Right wrist 20G, and 3) RFA 22G and 4) LFA 20G. Potassium IV and NS bolus still infusing upon arrival from ER. Pt incontinent of urine & stool, diaper placed. Will continue to monitor.
[2017-11-15] MEDS: POTASSIUM CL. PREMIX PERIPHER. 50 ML IV SCH ×6 (12:29→20:06)
--- NOTE | 2017-11-15 12:45 | NUR ---
GARMENT PARTS CUTTER MACHINE- Dr. Dutta at bedside. Md aware CT head (ordered from ER md) was not completed due to pt not being able to lay still for final picture. No other orders obtained. Will continue to monitor.
[2017-11-15] MEDS ORDERED: MYBETRIQ 25 MG PO SCH (13:00)
[2017-11-15] MEDS: PREGABALIN 25 MG CAPSULE PO SCH ×2 (13:00→17:45)
[2017-11-15] MEDS ORDERED: HYDROCODONE/APAP 10/325MG 1 EA TABLET PO PRN (13:00)
[2017-11-15] MEDS ORDERED: FEE PK DOSING 1 MIN EA MC ONE (13:20)
[2017-11-15] MEDS: [UNRECOGNIZED DRUG - OTHER] IV PRN ×2 (14:44)
[2017-11-15] MEDS: KCL IV PRN ×2 (14:44)
[2017-11-15] MEDS: LOSARTAN POTASSIUM 50 MG TABLET PO SCH (17:42)
[2017-11-15] MEDS: DILTIAZEM HCL CD 180 MG PO SCH (17:43)
--- NOTE | 2017-11-15 19:40 | NUR ---
RN NOTES RECEIVED PT AWAKE ON BED. AOX2-3 ABLE TO MAKE KNOWN NEEDS. REMOVED O2 VIA NC SATURATION 93% IN ROOM AIR. NO ACUTE RESP. DISTRESS. TELE MONITOR REVEALS A - FIB HR 93 IV SITE ON RFA G 22, LFA G 20 , RW G 20 AND RAC G 20 RUNNING WITH KCL 10 MEQ, AND 1/2 NS + 40 MEQ KCL @ 100 ML/HR, INTACT AND PATENT. BLE CELLULITIS NOTED BUT MORE ON LLE, KNEE PAIN COMPLAINED REPOSITIONED PT COMFORTABLE SINCE PT JUST TOOK PAIN MEDICINE 90 MINS. AGO. KEPT PT CLEAN AND DRY. REPOSITIONED COMFORTABLE. WILL CONTINUE TO MONITOR.
[2017-11-15] MEDS: MEROPENEM 1 G in IV NS 0.9% 100 ML IV SCH (20:03)
[2017-11-15] MEDS: Z GUARD REMEDY 2 OZ OINT TP SCH (20:07)
[2017-11-15] MEDS: TRAZODONE 50 MG TABLET PO SCH (22:21)
[2017-11-15] MEDS: VANCOMYCIN 1 GM in IV D5W 250 ML IV SCH (22:21)
[2017-11-16] VITALS (24 sets, daily range): BP systolic 85–129; BP diastolic 44–89
[2017-11-16] MEDS: [UNRECOGNIZED DRUG - OTHER] IV PRN ×6 (01:27→23:26)
[2017-11-16] MEDS: KCL IV PRN ×6 (01:27→23:26)
[2017-11-16] MEDS ORDERED: LIDOCAINE 2% JEL UROJET 10 ML MM ONE ×2 (01:56→02:00)
--- NOTE | 2017-11-16 02:15 | NUR ---
RN NOTES 00:30 AM - NOTED PT DIAPER STILL NOT WET, AT FIRST PT WANTS TO WAIT FOR AWHILE TO URINATE ON HIS OWN BECAUSE HE DON'T WANT F/C. EDUCATED PT THAT HE IS GETTING A LOT OF FLUIDS TROUGH IV SO WE EXPECTING A LOT TO COME OUT. BLADDER SCANNER DONE AND SHOWS >999 ML RETAINING INTO THE BLADDER CALLED AND SPOKE TO DR. SMITH. WITH ORDER TO INSERT CATHETER WITH EUROJET SO PT WILL LESSEN THE PAIN SINCE PT IS VERY SENSITIVE TO IT. 01:30 F/C INSERTED WITH EUROJET, TOLERATED WELL WITH AN OUTPUT OF 1060ML. WILL CONTINUE TO MONITOR.
--- NOTE | 2017-11-16 03:30 | NUR ---
RN NOTES PT DOESN'T WANT THE CATHETER ANYMORE DESPITE OF EXPLAINING THE RISK AND BENEFITS OF HAVING THE MARTIN CATHETER FOR NOW. BUT PT INSISTED TO REMOVE IT,AND HE ONLY WANTS IN AND OUT CATHETER JUST IN CASE THAT HE NEEDS IT AGAIN. REMOVED F/C PT REQUESTED. W/NO DISCOLORATION AND INTACT. WILL MONITORED CONTINUOUSLY
[2017-11-16 04:52] LABS: BASOPHILS % (AUTO) 0.3 % (0.0-2.0); EOSINOPHILS % (AUTO) 0.3 % (0.0-6.0); HEMATOCRIT 36 % (39-51); HEMOGLOBIN 11.9 g/dL (13.5-17.5); LYMPHOCYTES # (AUTO) 0.8 /CMM (0.8-4.8); LYMPHOCYTES % (AUTO) 7.4 % (20.0-44.0); MEAN CORPUSCULAR HEMOGLOBIN 28 PG (26.0-33.0); MEAN CORPUSCULAR HGB CONC 33 g/dl (31.0-36.0); MEAN CORPUSCULAR VOLUME 86 fL (80-96); MONOCYTES # (AUTO) 0.9 /CMM (0.1-1.30); PLATELET COUNT (AUTO) 139 /CMM (150-450); RDW COEFFICIENT OF VARIATION 15.7 (11.5-15.0); RED BLOOD CELL COUNT(AUTO) 4.19 MIL/uL (4.5-6.0); WHITE BLOOD COUNT (AUTO) 10.8 K/uL (4.3-11.0)
[2017-11-16 05:08] LABS: CALCIUM, SERUM 8.2 mg/dL (8.5-10.1); CARBON DIOXIDE 31 mmol/L (21-32); CHLORIDE 104 mmol/L (98-107); CREATININE 0.8 mg/dL (0.6-1.3); GLUCOSE 97 mg/dL (74-106); POTASSIUM 3.4 mmol/L (3.5-5.1); SODIUM SERUM 142 mmol/L (136-145)
[2017-11-16 05:16] LABS: UREA NITROGEN, BLOOD 16 mg/dL (7-18)
[2017-11-16] MEDS: MEROPENEM 1 G in IV NS 0.9% 100 ML IV SCH ×3 (05:43→21:00)
[2017-11-16] MEDS: HYDROCODONE/APAP 10/325MG 1 EA TABLET PO PRN ×3 (06:16→19:12)
--- NOTE | 2017-11-16 06:56 | NUR ---
RN NOTES PT IS MORE ALERT AND ORIENTED,COMMUNICATE WELL, PRN PAIN MEDICINE EFFECTIVE FOR BILATERAL KNEE PAIN. REMINDED PATIENT TO USED CALL LIGHT FOR ASSISTANCE, DIAPER STILL DRY, PER PATIENT HE WILL CALL WHEN HE FEELS UNEASY AND IF HE NEEDS THE CATHETER. LATEST POTASSIUM 3.4 CONTINUE WITH IVF 1/2 NS + 40 MEQ KCL @ 100 ML/HR AT [facility]. PATIENT REQUESTED TO SHAVE IN AM , AND TO PLEASE F/U WITH WOUND HEAD BANDER AND LINER OPERATOR TO CHECKED HIS WOUND. KEPT PT CLEAN AND DRY. WILL ENDORSED CONTINUITY OF CARE TO AM NURSE.
--- NOTE | 2017-11-16 07:12 | NUR ---
RN INITIAL NOTES: Rec'd pt on bed, A/O x 3, not in any distress. On NC/2lpm, sating at 98%. On telemonitor, controlled A.fib. Has 4 IV line access: R AC G20, PL, w/ 1/2 NS + 40 meqs KCL x 100 cc/hr noted was pulled out; RFA G22, R wrist G20, LFA G20, all SL, flushing well. Provided comfort & safety measures. Bed kept low & in locked pos. Call light placed w/in reach. Will cont to monitor & attend pt needs.
--- NOTE | 2017-11-16 07:59 | NUR ---
Pt seen by Wound Nurse Gerri.
[2017-11-16] MEDS: FINASTERIDE (5 MG) 5 MG TABLET PO SCH (08:07)
[2017-11-16] MEDS: PANTOPRAZOLE 40 MG TABLET.DR PO SCH (08:07)
[2017-11-16] MEDS: MONTELUKAST SODIUM (10MG) 10 MG TABLET PO SCH (08:07)
[2017-11-16] MEDS: ATORVASTATIN 10 MG TABLET PO SCH (08:07)
[2017-11-16] MEDS: BACLOFEN (10 MG) 10 MG TABLET PO SCH (08:07)
[2017-11-16] MEDS: METOLAZONE 2.5 MG TABLET PO SCH (08:07)
[2017-11-16] MEDS: predniSONE 20 MG TABLET PO SCH (08:07)
[2017-11-16] MEDS: FUROSEMIDE 40 MG TABLET PO SCH (08:07)
--- NOTE | 2017-11-16 08:07 | NUR ---
WOUND CARE CONSULT: PT PRESENTS WITH LEFT LOWER LEG WOUNDS WITH SURROUNDING REDNESS AND EDEMA, PRESENT ON ADMISSION. RECOMMEND DPM CONSULT. RECOMMENDATIONS MADE FOR WOUND CARE AND SKIN PROTECTION. DISCUSSED WITH NURSING STAFF. LEFT GREAT TOE CALLUS/DISCOLORATION NOTED WELL BROWNISH DISCOLORATION TO LEFT HEEL, PRESENT ON ADMISSION. NO DRAINAGE OR TENDERNESS NOTED. PT ALSO NOTED TO HAVE MULTIPLE SCARS, BRUISES AND SCABS TO ARMS, PRESENT ON ADMISSION. PT INCONTINENT AT TIMES. WILL SEE PRN. Addendum: 11/16/17 at 0809 by SYLVESTER BRYSON WNDNU Amended: Links added.
[2017-11-16] MEDS: Z GUARD REMEDY 2 OZ OINT TP SCH ×2 (08:08→21:00)
[2017-11-16] MEDS: METOPROLOL SUCCINATE 25 MG TAB.SR.24H PO SCH (08:09)
--- NOTE | 2017-11-16 09:00 | NUR ---
Carried out orders of Dr. Dutta, pt may do straight catheter PRN d/t urinary retention/discomfort. Repeat CBC & BMP monica AM.
--- NOTE | 2017-11-16 09:06 | NUR ---
Pt seen & examined by Dr. Dutta. MD made aware re: urinary retention. Per MD may insert FC or may do in & out straight cath.
[2017-11-16] MEDS: PREGABALIN 25 MG CAPSULE PO SCH ×3 (10:15→17:34)
[2017-11-16] MEDS: VANCOMYCIN 1 GM in IV D5W 250 ML IV SCH ×2 (10:15→22:23)
--- NOTE | 2017-11-16 14:00 | NUR ---
Pt seen & examined by Dr. Nair. Per , may apply JUAN bandage on pt's left leg.
[2017-11-16] MEDS: DILTIAZEM HCL CD 180 MG PO SCH (17:54)
--- NOTE | 2017-11-16 18:01 | NUR ---
Pt seen & examined by Dr. Villela.
[2017-11-16] MEDS: LOSARTAN POTASSIUM 50 MG TABLET PO SCH (18:17)
--- NOTE | 2017-11-16 19:10 | NUR ---
RN CLOSING NOTES: No acute changes noted w/in shift. Pt tolerated NC/2lpm, no SOB. On telemonitor, still controlled A.fib. IV line access: LFA G20, PL, w/ 03/16 NS + 40 meqs KCL x 100 cc/hr infusing well. Kept well rested. Needs attended. Bed kept low & in locked pos. Call light placed w/in reach. Will endorse to PM RN for MERISSA.
--- NOTE | 2017-11-16 19:40 | NUR ---
RN NOTES PT IS AOX3 WATCHING TV ON BED VERY ATTENTIVE FOR HIS POC, COMPLIANT W. CARE. W/ O2 2LPM VIA NC. A- FIB ON TELE MONITOR. IV SITE ON RH G 20 AND LFA G 20 WITH 1/2 NS + 40 MEQ KCL @ 100 ML/HR. INTACT AND PATENT. BLE ARTERIAL DOPPLER DONE AT BEDSIDE. AFEBRILE. VSS . LLE DRESSING CHANGED USE FOR ARTERIAL DOPPLER. KEPT PT CLEAN AND DRY. CALL LIGHT KEPT WITHIN EASY REACH AND REMINDED TO USE FOR ASSISTANCE. BLE ELEVATED W. PILLOWS WILL CONTINUE TO MONITOR.
[2017-11-16] MEDS: TRAZODONE 50 MG TABLET PO SCH (22:24)
[2017-11-17] VITALS (25 sets, daily range): BP systolic 89–142; BP diastolic 43–80
[2017-11-17 04:22] LABS: CALCIUM, SERUM 8.3 mg/dL (8.5-10.1); CARBON DIOXIDE 30 mmol/L (21-32); CHLORIDE 103 mmol/L (98-107); CREATININE 0.9 mg/dL (0.6-1.3); GLUCOSE 104 mg/dL (74-106); POTASSIUM 3.4 mmol/L (3.5-5.1); SODIUM SERUM 141 mmol/L (136-145); UREA NITROGEN, BLOOD 16 mg/dL (7-18)
[2017-11-17] MEDS: MEROPENEM 1 G in IV NS 0.9% 100 ML IV SCH ×3 (05:07→20:42)
--- NOTE | 2017-11-17 06:12 | NUR ---
RN NOTES PT ASLEEP WELL ON BED WITHOUT ANY SIGNIFICANT CHANGES CONTINUE WITH O2 2LPM VIA NC SATUATION 96%, A- FIB CONTROLLED IN TELE MONITOR. AFEBRILE. EPISODE OF SLIGHT LOWERING BP NOTED. CONTINUE WITH IVF 1/2 NS + 40 MEQ KCL @ 100 ML HR LATEST POTASSIUM IS 3.4 NO CHEST PAIN. NO SOB. COMPLIANT OF CARE. ALL NEEDS ATTENDED. INCONTINENT CARE RENDERED. KEPT PT CLEAN AND DRY. CALL LIGHT ANSWERED PROMPTLY. WILL ENDORSED CONTINUITY OF CARE TO AM NURSE.
--- NOTE | 2017-11-17 07:12 | NUR ---
RN INITIAL NOTES: Rec'd pt on bed sleeping, easily arousable, A/O x 3, not in any distress. On NC/2lpm, sating at 98%. On telemonitor, controlled A.fib. Has 2 IV line access: LFA G20, PL, w/ 1/2 NS + 40 meqs KCL x 100 cc/hr infusing well, no s/sx of infection/infiltration noted & R hand G20 SL, flushing well. Provided comfort & safety measures. Bed kept low & in locked pos. Call light placed w/in reach. Will cont to monitor & attend pt needs.
[2017-11-17] MEDS: PANTOPRAZOLE 40 MG TABLET.DR PO SCH (07:58)
[2017-11-17] MEDS: FINASTERIDE (5 MG) 5 MG TABLET PO SCH (08:20)
[2017-11-17] MEDS: FUROSEMIDE 40 MG TABLET PO SCH (08:20)
[2017-11-17] MEDS: BACLOFEN (10 MG) 10 MG TABLET PO SCH (08:20)
[2017-11-17] MEDS: MONTELUKAST SODIUM (10MG) 10 MG TABLET PO SCH (08:20)
[2017-11-17] MEDS: HYDROCODONE/APAP 10/325MG 1 EA TABLET PO PRN ×2 (08:21→17:11)
[2017-11-17] MEDS: METOPROLOL SUCCINATE 25 MG TAB.SR.24H PO SCH (08:21)
[2017-11-17] MEDS: ATORVASTATIN 10 MG TABLET PO SCH (08:21)
[2017-11-17] MEDS: PREGABALIN 25 MG CAPSULE PO SCH ×4 (08:21→17:10)
[2017-11-17] MEDS: METOLAZONE 2.5 MG TABLET PO SCH (08:21)
[2017-11-17] MEDS: Z GUARD REMEDY 2 OZ OINT TP SCH ×2 (08:22→20:42)
[2017-11-17] MEDS: predniSONE 20 MG TABLET PO SCH (08:22)
[2017-11-17] MEDS: TRIAMCINOLONE ACETONIDE 0.1% CR 15 GM TUBE TP SCH (09:43)
--- NOTE | 2017-11-17 09:44 | NUR ---
Pt informed about to provide home med MYBETRIQ. He said he will inform his daughter/.
[2017-11-17] MEDS: VANCOMYCIN 1 GM in IV D5W 250 ML IV SCH ×2 (10:12→21:29)
[2017-11-17] MEDS: KCL IV PRN ×4 (10:38→23:03)
[2017-11-17] MEDS: [UNRECOGNIZED DRUG - OTHER] IV PRN ×4 (10:38→23:03)
--- NOTE | 2017-11-17 11:30 | NUR ---
Pt seen & examined by Dr. Miller, aware of the US BLE Doppler results and was explained to the pt.
--- NOTE | 2017-11-17 14:00 | NUR ---
Pt seen & examined by Dr. Dutta and noted his orders. Clarified w/ re: DC orders. informed the pt that he may go home monica. Awaiting response. Addendum: 11/17/17 at 1621 by DESTINEE JORDAN RN Tried calling his office but per administrative receptionist is not working today. Called his CP# x 2 but failed to reach him, texted him instead.
[2017-11-17 14:37] LABS: BASOPHILS % (AUTO) 0.4 % (0.0-2.0); EOSINOPHILS % (AUTO) 0.3 % (0.0-6.0); HEMATOCRIT 39 % (39-51); HEMOGLOBIN 12.5 g/dL (13.5-17.5); LYMPHOCYTES % (AUTO) 11.3 % (20.0-44.0); MEAN CORPUSCULAR HEMOGLOBIN 27 PG (26.0-33.0); MEAN CORPUSCULAR HGB CONC 32 g/dl (31.0-36.0); MEAN CORPUSCULAR VOLUME 86 fL (80-96); MONOCYTES # (AUTO) 0.6 /CMM (0.1-1.30); MONOCYTES % (AUTO) 6.7 % (2.0-12.0); NEUTROPHILS # (AUTO) 7.1 /CMM (1.8-8.9); NEUTROPHILS % (AUTO) 81.3 % (43.0-81.0); PLATELET COUNT (AUTO) 153 /CMM (150-450); RDW COEFFICIENT OF VARIATION 15.7 (11.5-15.0); RED BLOOD CELL COUNT(AUTO) 4.58 MIL/uL (4.5-6.0); WHITE BLOOD COUNT (AUTO) 8.7 K/uL (4.3-11.0)
[2017-11-17] MEDS: LOSARTAN POTASSIUM 50 MG TABLET PO SCH (17:10)
[2017-11-17] MEDS: DILTIAZEM HCL CD 180 MG PO SCH (17:11)
--- NOTE | 2017-11-17 18:42 | NUR ---
RN CLOSING NOTES: No acute changes noted w/in shift. Pt tolerated NC/2lpm, no SOB. On telemonitor, still controlled A.fib. IV line access: LFA G20, PL, w/ 2 NS + 40 meqs KCL x 100 cc/hr infusing well & R hand G20, flushing well. Condom cath patent & intact draining to BSB. PT eval ordered prior to planned DC monica - explained the need of this to the pt w/ verbalization of understanding. Kept well rested. Needs attended. Bed kept low & in locked pos. Call light placed w/in reach. Will endorse to PM RN for MERISSA.
--- NOTE | 2017-11-17 20:02 | NUR ---
TERRITORY OUTSIDE SALES MANAGER OPENING NOTES RECEIVED REPORT FROM DESTINEE Luciano RN. PATIENT A/A/O X3, ABLE TO MAKE SOME NEEDS KNOWN. BREATHING EVEN & UNLABORED, TOLERATING O2 @ 2LPM VIA NC. SATING WELL @ 98%. ON TELE W/ A FLUTTER, HR 61. DENIES ANY SOB OR DIFFICULTY BREATHING. LEFT FOREARM IV #20 INTACT & PATENT W/ DRESSING CDI & IVF 1/2 NS W/ 40 MEQ KCL INFUSING WELL @ 100 ML/HR. RIGHT HAND IV REMOVED D/T LEAKING. DENIES ANY PAIN OR DISCOMFORT @ THIS TIME. TURNED & REPOSITIONED FOR COMFORT. WILL CONTINUE TO MONITOR CLOSELY.
[2017-11-17] MEDS: TRAZODONE 50 MG TABLET PO SCH (21:29)
[2017-11-18] VITALS (13 sets, daily range): BP systolic 98–147; BP diastolic 55–89
--- NOTE | 2017-11-18 02:30 | NUR ---
SOLE CUTTER NOTES PATIENT NOTED W/ HR INTERMITTENTLY DROPPING TO 40S W/ LOWEST 34 BUT GOES BACK UP TO 50S. 3 SECOND PAUSE RECORDED AROUND 0130 & REPORTED TO MEHDI ADAIR. PATIENT IS ASYMPTOMATIC & EASILY AROUSABLE FROM DEEP SLEEP. STILL ABLE TO STATE NAME, TIME & PLACE. PER MEHDI, HOLD BETA BLOCKERS UNTIL CLEARED BY CARDIOLOGY.
[2017-11-18] MEDS: MEROPENEM 1 G in IV NS 0.9% 100 ML IV SCH (04:04)
[2017-11-18 04:55] LABS: CARBON DIOXIDE 33 mmol/L (21-32); CHLORIDE 105 mmol/L (98-107); CREATININE 0.9 mg/dL (0.6-1.3); GLUCOSE 123 mg/dL (74-106); POTASSIUM 3.8 mmol/L (3.5-5.1); SODIUM SERUM 142 mmol/L (136-145); UREA NITROGEN, BLOOD 15 mg/dL (7-18)
[2017-11-18 05:08] LABS: CALCIUM, SERUM 8.8 mg/dL (8.5-10.1)
[2017-11-18] MEDS: FINASTERIDE (5 MG) 5 MG TABLET PO SCH (08:09)
[2017-11-18] MEDS: METOLAZONE 2.5 MG TABLET PO SCH (08:09)
[2017-11-18] MEDS: BACLOFEN (10 MG) 10 MG TABLET PO SCH (08:09)
[2017-11-18] MEDS: MONTELUKAST SODIUM (10MG) 10 MG TABLET PO SCH (08:09)
[2017-11-18] MEDS: PANTOPRAZOLE 40 MG TABLET.DR PO SCH (08:09)
[2017-11-18] MEDS: HYDROCODONE/APAP 10/325MG 1 EA TABLET PO PRN (08:10)
[2017-11-18] MEDS: FUROSEMIDE 40 MG TABLET PO SCH (08:10)
[2017-11-18] MEDS: predniSONE 20 MG TABLET PO SCH (08:10)
[2017-11-18] MEDS: TRIAMCINOLONE ACETONIDE 0.1% CR 15 GM TUBE TP SCH (08:12)
[2017-11-18] MEDS: Z GUARD REMEDY 2 OZ OINT TP SCH (08:12)
[2017-11-18] MEDS: METOPROLOL SUCCINATE 25 MG TAB.SR.24H PO SCH (09:00)
[2017-11-18] MEDS: ATORVASTATIN 10 MG TABLET PO SCH (09:32)
[2017-11-18] MEDS: PREGABALIN 25 MG CAPSULE PO SCH (09:32)
[2017-11-18] MEDS: VANCOMYCIN 1 GM in IV D5W 250 ML IV SCH (10:28)
--- NOTE | 2017-11-18 12:40 | NUR ---
RN NOTE: PATIENT DISCHARGE TO HOME WITH HOME HEALTH (WITH WOUND CARE & PHYSICAL THERAPY). ALERT AWAKE ORIENTED X 4. ON ROOM AIR AT TIME OF DISCHARGE, MAINTAINS SPO2 > 92%. PATIENT STATES HAVE OXYGEN AT HOME. HOME HEALTH BEEN ARRANGED ALREADY. DISCHARGE INSTRUCTIONS GIVEN TO THE PATIENT, VERBALIZE TO UNDERSTAND. STATED PRESCRIPTIONS ALREADY SENT TO PREFERRED PHARMACY YESTERDAY BY DR. RODRIGUEZ. DISCHARGE PACKAGE GIVEN TO THE PATIENT. SEEN BY PHYSICAL THERAPY BEFORE DISCHARGE. AMBULATORY WITH ASSISTANCE WITH WALKER. LEFT FROM FLOOR WITH ALL BELONGINGS. IV CATH REMOVED, APPLIED PRESSURE DRESSING. SKIN PICTURES TAKEN & PLACED IN THE CHART. LEFT WITH DAUGHTER KRYSTLE VIA PRIVATE CAR.
== END 2017-11-18 12:35 | disposition home health service (06) | DRG 871 ==
LOC: ER 09:07 → ICU 11:29
PROVIDERS: ADMIT Family Medicine; ATTEND Family Medicine
DX: A41.9 Sepsis, unspecified organism (principal); G93.40 Encephalopathy, unspecified; I21.A1 Myocardial infarction type 2; L03.116 Cellulitis of left lower limb; I50.32 Chronic diastolic (congestive) heart failure; E87.6 Hypokalemia; Z87.891 Personal history of nicotine dependence; I48.2 Chronic atrial fibrillation; K21.9 Gastro-esophageal reflux disease without esophagitis; I73.9 Peripheral vascular disease, unspecified; I87.2 Venous insufficiency (chronic) (peripheral); N40.0 Benign prostatic hyperplasia without lower urinary tract symptoms; I95.9 Hypotension, unspecified; I35.0 Nonrheumatic aortic (valve) stenosis; S81.812A Laceration without foreign body, left lower leg, initial encounter; X58.XXXA Exposure to other specified factors, initial encounter; Y93.9 Activity, unspecified; Y92.009 Unspecified place in unspecified non-institutional (private) residence as the place of occurrence of the external cause; I11.0 Hypertensive heart disease with heart failure; I25.2 Old myocardial infarction
CPT/HCPCS: 36415; 70450-TC; 71045-TC; 80048-TC; 80076-TC; 80202-TC; 81000-TC; 83605-TC; 84132-TC; 84484-TC; 85025-TC; 85730-TC; 86850-TC; 87040-TC; 87081-TC; 87086-TC; A4216; A4349; A4606; A6402; A6403; J2185; J3370; J3480; J3490; J7030; J7040; J7050; J7060; Z7610

== ENCOUNTER 2018-07-16 06:16 | Emergency (ER) | payer MEDICARE, OTHER ==
[~2018-07-16] VITALS: Ht 167.6 cm; Wt 83.5 kg
[~2018-07-16 06:16] MED LIST changes: +AMOX-430 PO; +ASPI-1169 PO; -BACL10TA PO; -DULO20CA PO; +FINA5TAB3 PO; -GABA-534 PO; +HYDR-4354 PO; -HYDR-548 PO; -LOSA50TA21 PO; -MYRBETRIQ PO; +OMEP40CA37 PO; +PRED20TA PO; -SOLI5TAB2 PO; -TAMS0.4C34 PO
[2018-07-16] MEDS ORDERED: HYDROMORPHONE INJ 2 MG/ML DISP.SYRIN IV ONE (07:00)
[2018-07-16] MEDS ORDERED: ONDANSETRON HCL/PF 4 MG/2 ML VIAL IVP ONE (07:00)
--- NOTE | 2018-07-16 07:00 | NUR ---
DANITZA CHAPIN PT EX . [phone]
[2018-07-16] MEDS ORDERED: ONDANSETRON HCL/PF 4 MG/2 ML VIAL ONE (07:09)
[2018-07-16] MEDS ORDERED: HYDROMORPHONE 1 MG/1 ML DISP.SYRIN ONE (07:10)
--- NOTE | 2018-07-16 07:30 | NUR ---
REPORT RECEIVED FROM ZHENG CHOI FOR MERISSA
--- NOTE | 2018-07-16 07:35 | NUR ---
RECEIVED PT IN BED, W C/O MID TO LOWER BACK PAIN X 2 DAYS. HOOKED TO MONITOR, VSS, NAD NOTED. WILL CONTINUE TO MONITOR.
[2018-07-16 07:39] LABS: BASOPHILS % (AUTO) 0.2 % (0.0-2.0); HEMATOCRIT 39 % (39-51); HEMOGLOBIN 13.4 g/dL (13.5-17.5); LYMPHOCYTES # (AUTO) 0.8 /CMM (0.8-4.8); LYMPHOCYTES % (AUTO) 7.7 % (20.0-44.0); MEAN CORPUSCULAR HGB CONC 34 g/dl (31.0-36.0); MEAN CORPUSCULAR VOLUME 85 fL (80-96); MONOCYTES % (AUTO) 9.6 % (2.0-12.0); NEUTROPHILS # (AUTO) 8.4 /CMM (1.8-8.9); NEUTROPHILS % (AUTO) 82.5 % (43.0-81.0); PLATELET COUNT (AUTO) 235 /CMM (150-450); RED BLOOD CELL COUNT(AUTO) 4.59 MIL/uL (4.5-6.0); WHITE BLOOD COUNT (AUTO) 10.2 K/uL (4.3-11.0)
[2018-07-16 07:47] LABS: CALCIUM, SERUM 9.3 mg/dL (8.5-10.1); CARBON DIOXIDE 38 mmol/L (21-32); CHLORIDE 98 mmol/L (98-107); CREATININE 0.8 mg/dL (0.6-1.3); GLUCOSE 130 mg/dL (74-106); POTASSIUM 3.3 mmol/L (3.5-5.1); SODIUM SERUM 139 mmol/L (136-145); UREA NITROGEN, BLOOD 16 mg/dL (7-18)
--- NOTE | 2018-07-16 08:00 | NUR ---
MARSHMALLOW MAKER NOT ABLE TO START IV LINE. INFORMED MD. ORDERED DILAUDID 1MG IV AND ZOFRAN 4MG IV TO BE GIVEN BY IM. CARRIED OUT
--- NOTE | 2018-07-16 08:05 | NUR ---
PT REFUSED ZOFRAN 4MG IM. MADE AWARE.
--- NOTE | 2018-07-16 08:45 | NUR ---
SPOKE TO EX DANITZA, WILL COME IN 25MIN TO PICK-UP PATIENT. PT MADE AWARE.
[2018-07-16] MEDS ORDERED: HYDROMORPHONE 1 MG/1 ML DISP.SYRIN IM ONE (09:00)
--- NOTE | 2018-07-16 09:28 | NUR ---
Patient discharged to home, picked up by ex Martine, in stable condition. Written and verbal after care instructions given. Patient verbalizes understanding of instruction.
[2018-07-16 09:29] VITALS: BP 133/84
== END 2018-07-16 09:31 | disposition home or self-care (01) ==
LOC: ER 06:17
DX: M54.5 Low back pain (principal); I48.91 Unspecified atrial fibrillation; I10 Essential (primary) hypertension; G89.29 Other chronic pain; E11.9 Type 2 diabetes mellitus without complications; Z79.82 Long term (current) use of aspirin; Z98.890 Other specified postprocedural states
CPT/HCPCS: 36415; 71045; 80048; 84484; 85025; 96372; 99284; J1170; J2405

== ENCOUNTER 2018-08-18 17:05 | Emergency (ER) | payer MEDICARE ==
[~2018-08-18] VITALS: Ht 188 cm; Wt 94.3 kg
--- NOTE | 2018-08-18 17:45 | NUR ---
LLE SWELLING AND DISCHARGE SINCE [address] MONTALVO WANTS HIM TO GO TO ER. PATIENT PLACED IN BED, KEPT COMFORTABLE, NO DISTRESS NOTED, WILL CONTINUE TO MONITOR.
[2018-08-18] MEDS ORDERED: MUPIROCIN OINT 2% 22 GM TUBE TP ONE (18:00)
[2018-08-18] MEDS ORDERED: IV NS 0.9% 500 ML BAG IV ONE (18:00)
[2018-08-18] MEDS ORDERED: MUPIROCIN OINT 2% 22 GM TUBE ONE (18:17)
[2018-08-18 18:18] LABS: BASOPHILS % (AUTO) 0.3 % (0.0-2.0); EOSINOPHILS % (AUTO) 0.8 % (0.0-6.0); HEMATOCRIT 32 % (39-51); HEMOGLOBIN 10.8 g/dL (13.5-17.5); LYMPHOCYTES # (AUTO) 0.7 /CMM (0.8-4.8); LYMPHOCYTES % (AUTO) 9.2 % (20.0-44.0); MEAN CORPUSCULAR HGB CONC 34 g/dl (31.0-36.0); MEAN CORPUSCULAR VOLUME 85 fL (80-96); MONOCYTES # (AUTO) 0.6 /CMM (0.1-1.30); MONOCYTES % (AUTO) 7.6 % (2.0-12.0); NEUTROPHILS # (AUTO) 6.4 /CMM (1.8-8.9); NEUTROPHILS % (AUTO) 82.1 % (43.0-81.0); PLATELET COUNT (AUTO) 180 /CMM (150-450); RED BLOOD CELL COUNT(AUTO) 3.77 MIL/uL (4.5-6.0); WHITE BLOOD COUNT (AUTO) 7.8 K/uL (4.3-11.0)
--- NOTE | 2018-08-18 18:32 | NUR ---
BLE CLEANSED AND BACTROBAN APPLIED THEN COVERED WITH KERLIX DRESSING.
[2018-08-18 18:40] LABS: ALANINE AMINOTRANSFERASE 37 U/L (12-78); ALBUMIN 3.3 g/dL (3.4-5.0); ALKALINE PHOSPHATASE 56 U/L (46-116); ASPARTATE AMINOTRANSFERASE 18 U/L (15-37); BILIRUBIN,DIRECT 0.1 mg/dL (0.0-0.2); BILIRUBIN,TOTAL 0.4 mg/dL (0.2-1.0); CALCIUM, SERUM 8.8 mg/dL (8.5-10.1); CARBON DIOXIDE 33 mmol/L (21-32); CHLORIDE 94 mmol/L (98-107); CREATININE 1.3 mg/dL (0.6-1.3); GLUCOSE 146 mg/dL (74-106); LIPASE 123 U/L (73-393); SODIUM SERUM 134 mmol/L (136-145); UREA NITROGEN, BLOOD 46 mg/dL (7-18)
--- NOTE | 2018-08-18 19:15 | NUR ---
SPOKE TO PT RE: DISCHARGE. PT IS CALLING HIS .
--- NOTE | 2018-08-18 19:19 | NUR ---
PIV removed, patient in stable condition. Written and verbal after care instructions given. Patient verbalizes understanding of instruction. Patient still waiting for to pick him up.
--- NOTE | 2018-08-18 19:23 | NUR ---
endorsed to Dina CHOI.
--- NOTE | 2018-08-18 19:52 | NUR ---
PT'S ARRIVED AND PT WAS ASSISTED BACK INTO HIS SWEATSHIRT. PT AMBULATED OUT WITH HIS WALKER AND PT'S IS DRIVING HIM HOME. VSS.
[2018-08-18 19:54] VITALS: BP 120/66
== END 2018-08-18 19:50 | disposition home or self-care (01) ==
LOC: ER 17:10
DX: I87.2 Venous insufficiency (chronic) (peripheral) (principal); I10 Essential (primary) hypertension; I48.91 Unspecified atrial fibrillation; E11.9 Type 2 diabetes mellitus without complications; G89.29 Other chronic pain; M54.9 Dorsalgia, unspecified; J44.9 Chronic obstructive pulmonary disease, unspecified; I45.10 Unspecified right bundle-branch block; E86.0 Dehydration; Z98.890 Other specified postprocedural states; Z79.82 Long term (current) use of aspirin
CPT/HCPCS: 36415; 71045; 80048; 80076; 83690; 83880; 84484; 85025; 93005; 99284; J7040

== ENCOUNTER 2018-09-20 22:20 | Inpatient (IN) | payer MEDICARE ==
[~2018-09-20] VITALS: Ht 182.9 cm; Wt 85.4 kg
--- NOTE | 2018-09-20 23:36 | NUR ---
BIBRA FROM HOME. OBTUNDED, DIFFICULT TO ARROUSE WITH PAIN STIMULI. BREATHING EVEN AND UNLABORED. BROUGHT FOR GLF AFTER FALLING ASLEEP. EMS REPORTS THAT PATIENT TAKEN 9 NORCO A DAY. NO NOTED TRAUMA. TO ER BED 9. AWAITING MD FOR EVAL AND ORDERS
--- NOTE | 2018-09-21 00:12 | NUR ---
DANITZA ROOT, EX- [phone]
--- NOTE | 2018-09-21 00:15 | NUR ---
EXWIFE CAME IN. SHE IS TAKING CARE OF THE PATIENT AT HOME. PER EX , SHE LEFT ON SEPTEMBER 12 WITH A COMPLETELY CAPABLE PERSON. WHEN SHE GOT BACK BACK ON SEPTEMBER 17. SHE NOTED THE THE PT HAS NOT BEEN ABLE TO TAKE CARE OF HIME SELF. NOT EATING AND JUST SLEEPING MOST OF THE DAY. SHE REPORTS THAT DESPITE TAKING THE REPORTED AMOUNT OF NORCO SHE IS NOT THIS LETHARGIC. SHE ALSO REPORTS THAT HE HAD 3 TOOTH PULLED OUT WELL. SHE ALSO REPORTS THAT SHE HAS BEEN NOTING THE PATIENT COUGH WITH PHLEGM. MADE AWARE AND ORDERS RECEIVED
[2018-09-21 00:29] LABS: BASOPHILS % (AUTO) 0.5 % (0.0-2.0); EOSINOPHILS % (AUTO) 0.5 % (0.0-6.0); HEMATOCRIT 35 % (39-51); HEMOGLOBIN 11.9 g/dL (13.5-17.5); LYMPHOCYTES # (AUTO) 0.7 /CMM (0.8-4.8); LYMPHOCYTES % (AUTO) 8.2 % (20.0-44.0); MEAN CORPUSCULAR HGB CONC 34 g/dl (31.0-36.0); MEAN CORPUSCULAR VOLUME 86 fL (80-96); MONOCYTES % (AUTO) 10.6 % (2.0-12.0); NEUTROPHILS # (AUTO) 7.3 /CMM (1.8-8.9); NEUTROPHILS % (AUTO) 80.2 % (43.0-81.0); PLATELET COUNT (AUTO) 216 /CMM (150-450); RED BLOOD CELL COUNT(AUTO) 4.03 MIL/uL (4.5-6.0); WHITE BLOOD COUNT (AUTO) 9.1 K/uL (4.3-11.0)
[2018-09-21] MEDS ORDERED: IV NS 0.9% 500 ML BAG IV ONE (00:30)
[2018-09-21 00:39] LABS: CALCIUM, SERUM 9.1 mg/dL (8.5-10.1); CARBON DIOXIDE 37 mmol/L (21-32); CHLORIDE 101 mmol/L (98-107); CREATININE 1.2 mg/dL (0.6-1.3); GLUCOSE 133 mg/dL (74-106); POTASSIUM 3.2 mmol/L (3.5-5.1); SODIUM SERUM 141 mmol/L (136-145); UREA NITROGEN, BLOOD 39 mg/dL (7-18)
--- NOTE | 2018-09-21 01:32 | NUR ---
BASILIA ONEILL CALLED TO GIVE BED 103.
--- NOTE | 2018-09-21 01:41 | NUR ---
REPORT GIVEN TO STEPH WINTERS FOR MERISSA. PT GOING TO 103
--- NOTE | 2018-09-21 02:20 | NUR ---
LEAD SHOP OPERATOR NOTES RECEIVED PATIENT FROM ER VIA GURNEY, ACCOMPANIED BY COMPA AND RN. PATIENT CONNECTED TO ICU STAFF NURSE, SHOWING AFIB, RATE CONTROLLED, HR 77 BPM. MULTIPLE SKIN ISSUES NOTED, PHOTOGRAPHED AND DOCUMENTED PER PROTOCOL. PATIENT LETHARGIC, WAKES TO INTRODUCTION OF [PAINFUL STIMULI, BUT DOSES OFF AFTER ANSWERING 1 QUESTION. LEFT AC #20 GAUGE PATENT AND INTACT, FLUSHED WITH NS, NO S/S OF INFILTRATION OR PHLEBITIS NOTED. CALL LIGHT LEFT WITHIN EASY REACH, BED IN LOWEST AND LOCKED POSITION. WILL CONTINUE TO CLOSELY MONITOR
--- NOTE | 2018-09-21 02:24 | NUR ---
PT TRANSPORTED TO UNIT WITH EMT AND RN AT BEDSIDE. NAD NOTESD DURING TRANSPORT. PT WOKE UP WHILE BEING TRANSPORTED. AWARE WHERE HE IS AT.
--- NOTE | 2018-09-21 03:00 | NUR ---
RN NOTES POC GLUCOSE 44 MG/DL IN RIGHT HAND, BUT HAND NOTED TO HAVE POOR PERFUSION, FINGERTIPS COLD TO TOUCH. LEFT HAND POC 114, EXTREMITY ALSO COLD WITH POOR PERFUSION. RANDOM GLUCOSE PERIPHERAL STICK RESULT 116. WILL MONITOR CLOSELY
[2018-09-21 04:00] VITALS: BP 153/97
[2018-09-21] MEDS ORDERED: DEXTROSE 50%-WATER 50 ML DISP.SYRIN IV PRN (04:30)
[2018-09-21] MEDS ORDERED: ONDANSETRON HCL/PF 4 MG/2 ML VIAL IVP PRN (04:30)
[2018-09-21] MEDS ORDERED: Z GUARD REMEDY 2 OZ OINT TP PRN (04:30)
--- NOTE | 2018-09-21 05:00 | NUR ---
RN NOTES NEW ORDER FOR URINE CULTURE AND UA, PATIENT INCONTINENT, DIAPER SOAKED WITH URINE. CONDOM CATHETER APPLIED. WILL COLLECT SPECIMEN AND SEND TO LAB
[2018-09-21] MEDS ORDERED: IV PREMIX 0.45% NS + KCL 1,000 ML IV ONE (05:13)
[2018-09-21 06:27] LABS: BASOPHILS % (AUTO) 0.1 % (0.0-2.0); EOSINOPHILS % (AUTO) 1.2 % (0.0-6.0); HEMATOCRIT 35 % (39-51); HEMOGLOBIN 12.2 g/dL (13.5-17.5); IRON, SERUM 35 ug/dl (50-175); LYMPHOCYTES # (AUTO) 0.9 /CMM (0.8-4.8); LYMPHOCYTES % (AUTO) 10.9 % (20.0-44.0); MEAN CORPUSCULAR HGB CONC 35 g/dl (31.0-36.0); MEAN CORPUSCULAR VOLUME 85 fL (80-96); MONOCYTES # (AUTO) 0.9 /CMM (0.1-1.30); MONOCYTES % (AUTO) 10.9 % (2.0-12.0); NEUTROPHILS # (AUTO) 6.1 /CMM (1.8-8.9); NEUTROPHILS % (AUTO) 76.9 % (43.0-81.0); PLATELET COUNT (AUTO) 209 /CMM (150-450); RED BLOOD CELL COUNT(AUTO) 4.12 MIL/uL (4.5-6.0); TOTAL IRON BINDING CAPACITY 222 ug/dl (250-450); WHITE BLOOD COUNT (AUTO) 7.9 K/uL (4.3-11.0)
[2018-09-21 06:40] LABS: CHOLESTEROL 162 mg/dL (<200); HDL CHOLESTEROL 40 mg/dL (40-60); LDL 98 mg/dL (0-99); THYROID STIMULATING HORMONE 0.804 uIU/mL (0.358-3.74); TRIGLYCERIDES 127 mg/dL (30-150)
[2018-09-21 06:48] LABS: ALANINE AMINOTRANSFERASE 24 U/L (12-78); ALBUMIN 3.2 g/dL (3.4-5.0); ALKALINE PHOSPHATASE 62 U/L (46-116); ASPARTATE AMINOTRANSFERASE 17 U/L (15-37); BILIRUBIN,TOTAL 0.9 mg/dL (0.2-1.0); CALCIUM, SERUM 8.9 mg/dL (8.5-10.1); CARBON DIOXIDE 33 mmol/L (21-32); CHLORIDE 100 mmol/L (98-107); CREATININE 1.2 mg/dL (0.6-1.3); GLUCOSE 106 mg/dL (74-106); MAGNESIUM 1.7 mg/dL (1.8-2.4); PHOSPHORUS 2.9 mg/dL (2.5-4.9); POTASSIUM 2.9 mmol/L (3.5-5.1); SODIUM SERUM 141 mmol/L (136-145); TOTAL PROTEIN, SERUM 6.3 g/dL (6.4-8.2); UREA NITROGEN, BLOOD 34 mg/dL (7-18)
--- NOTE | 2018-09-21 07:00 | NUR ---
RN CLOSING SHIFT NOTES PATIENT SLEEPING IN BED, REMAINS AFIB, CONTROLLED RATE AT THIS TIME. NO URINE OUTPUT, CONDOM CATHETER IN PLACE. CARE ENDORSED TO THE DAY SHIFT NURSE, TO COLLECT AND SEND URINE SPECIMEN
--- NOTE | 2018-09-21 07:30 | NUR ---
RN NOTE: RECEIVED PATIENT IN BED, ASLEEP BUT AROUSABLE WITH TACTILE STIMULI AND VERBAL CUES. HE WAS ABLE TO FOLLOW SIMPLE COMMANDS, AND ABLE TO TELL WHAT HAPPENED TO HIM AND WHY HE IS IN THE HOSPITAL. PATIENT GOES ON AND OFF WITH SLEEPING. ON PRINTED CIRCUIT BOARDS BEVELER CONTROLLED A. FIB HR= 79. RESPIRATION EVEN AND UNLABORED SATURATING 98% IN ROOM AIR. DENIED ANY PAIN. HOB ELEVATED. BED ALARMED AND LOCKED AT ALL TIMES. (L) AC IV SITE NOTED PATENT AND INTACT AND IT WAS INFUSING 1/2 NS + KCL 20MEQ @70ML/HR. AFEBRILE. SKIN WARM TO TOUCH. CALL LIGHT WITHIN REACH. WILL COLLECT URINE SAMPLE PER PM SHIFT NURSE ENDORSEMENT. PATIENT WAS INFORMED ABOUT THE URINE COLLECTION.
[2018-09-21 08:00] VITALS: BP 135/80
[2018-09-21] MEDS: PANTOPRAZOLE 40 MG TABLET.DR PO SCH (08:24)
[2018-09-21] MEDS: PREGABALIN 100 MG CAPSULE PO SCH ×3 (10:05→18:00)
[2018-09-21] MEDS: ASPIRIN 81 MG TAB.CHEW PO SCH (10:05)
[2018-09-21] MEDS: METOPROLOL SUCCINATE 25 MG TAB.SR.24H PO SCH (10:06)
--- NOTE | 2018-09-21 11:44 | NUR ---
RN NOTE: SPOKE WITH TRISTA WALSH NP AND MADE HER AWARE OF THE PATIENT'S CURRENT IV FLUID 1/2 NS WITH KCL 20 MEQ @70ML/HR AND PATIENT'S POTASSIUM LEVEL WAS 2.9 DIDIER WALSH GAVE AN ORDER TO CHANGE THE THE IV FLUID TO 1/2 NS + KCL 40 MEQ @70ML/HR. ORDER, NOTED AND CARRIED OUT. LINDA SARABIA WAS MADE AWARE.
[2018-09-21 12:00] VITALS: BP 147/87
[2018-09-21] MEDS: BLOOD SUGAR DIAGNOSTIC 1 EACH STRIP IN SCH ×3 (12:37→22:04)
[2018-09-21] MEDS: Magnesium 1GM/D5W 100ML PREMIX 100 ML IV SCH ×2 (12:50→13:58)
--- NOTE | 2018-09-21 13:15 | NUR ---
RN NOTE: REPEATED BLOOD SUGAR AFTER ADMINISTRATION OF 8 OZ ORANGE JUICE AND BLOOD SUGAR CHECK WAS 113. TRISTA WALSH NP MADE AWARE.
[2018-09-21] MEDS ORDERED: NEOMY SULF/BACITRAC ZN/POLY 15 GM TUBE TP PRN (15:00)
[2018-09-21 15:50] LABS: APPEARANCE,URINE CLEAR (CLEAR); BILIRUBIN,URINE NEGATIVE (NEGATIVE); BLOOD, URINE NEGATIVE Ery/uL (NEGATIVE); COLOR,URINE YELLOW (YELLOW); KETONES,URINE TRACE (NEGATIVE); LEUKOCYTE ESTERASE ,URINE NEGATIVE (NEGATIVE); NITRITE, URINE NEGATIVE (NEGATIVE); PROTEIN,URINE NEGATIVE (NEGATIVE); UGLUCOSE NEGATIVE (NEGATIVE); UROBILINOGEN,URINE 0.2 EU/dL (0.2)
[2018-09-21 16:00] VITALS: BP_SYST 122; BP_SYST 135; BP_DIAS 76; BP_DIAS 80
--- NOTE | 2018-09-21 17:00 | NUR ---
RN NOTE: PATIENT WAS INFORMED ABOUT THE (B) LOWER EXTREMITIES WOUND DEBRIDEMENT ORDER FROM DR. GREGORIO. PATIENT WAS AWARE ABOUT IT AND PATIENT SIGNED THE INFORMED CONSENT. SIGNED AND FILED IN PATIENT'S CHART.
--- NOTE | 2018-09-21 18:00 | NUR ---
RN NOTE: SPOKE WITH TRISTA WALSH NP REGARDING THE PATIENT'S LATEST BLOOD SUGAR OF 77 PRIOR TO DINNER. PATIENT REMAINED AWAKE, ALERT AND VERBALLY RESPONSIVE. LIBRARIAN SPECIALIST WAS INFORMED OF THE CURRENT IVF OF THE PATIENT. PER Segundo WALSH NP SHE WANTED TO CONTINUE TO MONITOR THE PATIENT'S BLOOD GLUCOSE FOR NOW AND SHE WILL RE-EVALUATE THE IVF BY TOMORROW AGAIN. WILL REPORT THIS TO THE PM SHIFT NURSE.
[2018-09-21] MEDS: DILTIAZEM HCL CD 180 MG PO SCH (18:01)
[2018-09-21] MEDS: FINASTERIDE (5 MG) 5 MG TABLET PO SCH (18:01)
--- NOTE | 2018-09-21 19:41 | NUR ---
RN NOTE: BEDSIDE REPORT WAS GIVEN TO PM SHIFT NURSE FOR CONTINUITY OF CARE. PATIENT ATE 50% OF HIS DINNER MEAL. PATIENT REMAINED AWAKE, ALERT AND VERBALLY RESPONSIVE. REPORT WAS GIVEN TO CONTINUE TO MONITOR THE PATIENT'S BLOOD SUGAR.
--- NOTE | 2018-09-21 19:42 | NUR ---
RN Notes Received patient awake, alert and oriented x3, verbally responsive. Patient denies pain, nausea and vomiting at this time. HOB elevated with O2 inhalation at 2LPM via NC, tolerated well with good saturation. IV access on left AC patent and intact with ongoing 1/2 NS with 40 meq KCl infusing well. Multiple scattered bruises noted on Bilateral upper extremity. Bilateral lower leg edema noted and kept elevated. Plan of care discussed with the patient verbalized understanding. Kept clean and dry, with call light within reach. Will continue to monitor patient.
[2018-09-21 20:00] VITALS: BP 114/71
[2018-09-21] MEDS ORDERED: FEE PK DOSING 1 MIN EA MC ONE (20:22)
[2018-09-21] MEDS: VANCOMYCIN 1 GM in IV D5W 250ml IV SCH (20:51)
[2018-09-21] MEDS: NEOMY SULF/BACITRAC ZN/POLY 15 GM TUBE TP SCH (21:00)
[2018-09-21] MEDS: INSULIN REGULAR, HUMAN 100 UNIT/ML 3 ML VIAL SQ PRN (22:06)
[2018-09-21] MEDS: ATORVASTATIN 10 MG TABLET PO SCH (22:07)
[2018-09-21] MEDS: TRAZODONE 50 MG TABLET PO SCH (22:07)
[2018-09-22 04:00] VITALS: BP 142/87
--- NOTE | 2018-09-22 05:51 | NUR ---
RN Notes Patient slept well overnight, vital signs stable, afebrile. Patient is more alert and verbal. Denies any pain and discomfort. Bilateral lower leg elevated on pillows.Kept clean and dry, turned and repositioned per protocol. Wound care done. Fall precaution observed. All needs attended. Will continue to monitor and will endorse accordingly.
[2018-09-22 06:38] LABS: BASOPHILS % (AUTO) 0.3 % (0.0-2.0); EOSINOPHILS % (AUTO) 1.5 % (0.0-6.0); HEMATOCRIT 35 % (39-51); HEMOGLOBIN 11.8 g/dL (13.5-17.5); LYMPHOCYTES # (AUTO) 0.8 /CMM (0.8-4.8); MEAN CORPUSCULAR HGB CONC 34 g/dl (31.0-36.0); MEAN CORPUSCULAR VOLUME 86 fL (80-96); MONOCYTES # (AUTO) 0.9 /CMM (0.1-1.30); MONOCYTES % (AUTO) 10.1 % (2.0-12.0); NEUTROPHILS # (AUTO) 7.4 /CMM (1.8-8.9); NEUTROPHILS % (AUTO) 79.1 % (43.0-81.0); PLATELET COUNT (AUTO) 193 /CMM (150-450); RED BLOOD CELL COUNT(AUTO) 4.06 MIL/uL (4.5-6.0); WHITE BLOOD COUNT (AUTO) 9.3 K/uL (4.3-11.0)
--- NOTE | 2018-09-22 06:53 | NUR ---
WOUND CARE CONSULT WOUND CARE RECEIVED CONSULT FOR VIVIEN SCORE 11 AND WOUNDS. WOUND CARE WILL DEFER CONSULT AND TREATMENT PLANS TO PLASTIC SURGICAL TEAM INCLUDING DPM DR CERON WHO ARE ALL FOLLOWING THIS PATIENT. PATIENT WITH VIVIEN AT 11, ALL PRESSURE ULCER PREVENTION MEASURES ARE NOTED TO BE IN PLACE AT THIS TIME. WILL SEE PRN.
[2018-09-22 07:08] LABS: CALCIUM, SERUM 8.8 mg/dL (8.5-10.1); CARBON DIOXIDE 32 mmol/L (21-32); CHLORIDE 102 mmol/L (98-107); CREATININE 0.8 mg/dL (0.6-1.3); GLUCOSE 97 mg/dL (74-106); MAGNESIUM 1.8 mg/dL (1.8-2.4); PHOSPHORUS 2.5 mg/dL (2.5-4.9); POTASSIUM 3.6 mmol/L (3.5-5.1); SODIUM SERUM 141 mmol/L (136-145); UREA NITROGEN, BLOOD 15 mg/dL (7-18)
[2018-09-22] MEDS: BLOOD SUGAR DIAGNOSTIC 1 EACH STRIP IN SCH ×4 (07:09→21:46)
--- NOTE | 2018-09-22 07:10 | NUR ---
RN Notes 0652 - Blood sugar 60 mg/dl. Patient is alert and oriented x3, verbal. Denies any discomfort. Meigs juice 120 ml given PO and tolerated well. Will recheck blood sugar. 0707 - Blood sugar rechecked 77 mg/dl. Patient awake, alert and verbal. denies any discomfort. Will paged MD joint special operations to notify. Will continue to monitor and will endorse accordingly.
[2018-09-22] MEDS: PANTOPRAZOLE 40 MG TABLET.DR PO SCH (07:30)
--- NOTE | 2018-09-22 07:30 | NUR ---
RN AM SHIFT NOTE PATIENT SLEEPING, SIDE RAILS UP. CALL LIGHT WITHIN REACH. SAFETY PRECAUTIONS IN PLACE. IV PATENT AND INTACT. PATIENT GIVEN ORANGE JUICE DUE TO REPORT FROM NIGHT NURSE BLOOD GLUCOSE WAS LOW. RN WILL RECHECK THIS AM 0800. CONTINUE TO MONITOR.
[2018-09-22 08:00] VITALS: BP 110/75
[2018-09-22] MEDS: PREGABALIN 100 MG CAPSULE PO SCH ×3 (08:56→17:11)
[2018-09-22] MEDS: METOPROLOL SUCCINATE 25 MG TAB.SR.24H PO SCH (08:57)
[2018-09-22] MEDS: ASPIRIN 81 MG TAB.CHEW PO SCH (08:58)
[2018-09-22] MEDS: VANCOMYCIN 1 GM in IV D5W 250ml IV SCH ×2 (09:08→21:26)
[2018-09-22] MEDS: NEOMY SULF/BACITRAC ZN/POLY 15 GM TUBE TP SCH ×2 (09:09→21:00)
[2018-09-22 16:00] VITALS: BP 120/60
[2018-09-22] MEDS: FINASTERIDE (5 MG) 5 MG TABLET PO SCH (18:46)
[2018-09-22] MEDS: DILTIAZEM HCL CD 180 MG PO SCH (18:46)
[2018-09-22] MEDS ORDERED: IV D5/0.45 NACL 1,000 ML IV PRN (19:00)
--- NOTE | 2018-09-22 19:23 | NUR ---
RN SHIFT NOTE PATIENT HAVE EPISODE OF HYPOGLYCEMIA IN EVENING. POOR PO INTAKE, GAVE JUICE AND SUGAR, ALERT BUT LETHARGIC, CONTACTED MD AND NO NEW ORDERS AT THIS TIME. CONTINUE WITH CURRENT IVF NS AND KCL UNTIL TOMORROW, MONITOR BS. PATIENT IS COOPERATIVE, AND MORE RESPONSIVE THROUGH OUT THE DAY. ALERT AND ORIENTED X3. WOUND DR DID DEBRIMENT, TOLERATED WELL. SAFETY MEASURES IN PLACE, CALL LIGHT WITHIN REACH. CONT HOSPITALIZATION.
[2018-09-22] MEDS: VITAMINS A AND D 56.7 GM TUBE TP PRN (21:26)
[2018-09-22] MEDS: TRAZODONE 50 MG TABLET PO SCH (21:27)
[2018-09-22] MEDS: ATORVASTATIN 10 MG TABLET PO SCH (21:27)
[2018-09-22] MEDS: INSULIN REGULAR, HUMAN 100 UNIT/ML 3 ML VIAL SQ PRN (21:47)
[2018-09-23 00:39] VITALS: BP 117/69
[2018-09-23 04:00] VITALS: BP_SYST 141; BP_SYST 94; BP_DIAS 67; BP_DIAS 86
[2018-09-23] MEDS: INSULIN REGULAR, HUMAN 100 UNIT/ML 3 ML VIAL SQ PRN ×2 (05:19→22:33)
[2018-09-23] MEDS: BLOOD SUGAR DIAGNOSTIC 1 EACH STRIP IN SCH ×4 (05:20→22:32)
--- NOTE | 2018-09-23 05:50 | NUR ---
RN NOTES NO SIGNIFICANT CHANGE IN CONDITION. VITAL SIGNS WNL. BREATHING EVEN AND UNLABORED. NO EPISODE OF HYPO/HYPERGLYCEMIA. RESTING COMFORTABLY IN BED. WILL ENDORSE TO NEXT SHIFT FOR CONTINUITY OF CARE
[2018-09-23 08:00] VITALS: BP 125/77
[2018-09-23] MEDS: PANTOPRAZOLE 40 MG TABLET.DR PO SCH (08:10)
[2018-09-23] MEDS: ASPIRIN 81 MG TAB.CHEW PO SCH (08:10)
[2018-09-23] MEDS: PREGABALIN 100 MG CAPSULE PO SCH ×3 (08:10→17:23)
[2018-09-23] MEDS: METOPROLOL SUCCINATE 25 MG TAB.SR.24H PO SCH (08:11)
[2018-09-23] MEDS: VITAMINS A AND D 56.7 GM TUBE TP PRN (08:12)
[2018-09-23 08:23] LABS: BASOPHILS % (AUTO) 0.1 % (0.0-2.0); EOSINOPHILS % (AUTO) 2.2 % (0.0-6.0); HEMATOCRIT 33 % (39-51); LYMPHOCYTES # (AUTO) 0.9 /CMM (0.8-4.8); LYMPHOCYTES % (AUTO) 11.1 % (20.0-44.0); MEAN CORPUSCULAR HGB CONC 34 g/dl (31.0-36.0); MEAN CORPUSCULAR VOLUME 85 fL (80-96); MONOCYTES # (AUTO) 0.8 /CMM (0.1-1.30); MONOCYTES % (AUTO) 10.7 % (2.0-12.0); NEUTROPHILS # (AUTO) 5.8 /CMM (1.8-8.9); NEUTROPHILS % (AUTO) 75.9 % (43.0-81.0); PLATELET COUNT (AUTO) 198 /CMM (150-450); RED BLOOD CELL COUNT(AUTO) 3.82 MIL/uL (4.5-6.0); WHITE BLOOD COUNT (AUTO) 7.7 K/uL (4.3-11.0)
[2018-09-23 08:48] LABS: CALCIUM, SERUM 8.2 mg/dL (8.5-10.1); CARBON DIOXIDE 29 mmol/L (21-32); CHLORIDE 103 mmol/L (98-107); CREATININE 0.8 mg/dL (0.6-1.3); GLUCOSE 107 mg/dL (74-106); MAGNESIUM 1.5 mg/dL (1.8-2.4); PHOSPHORUS 2.2 mg/dL (2.5-4.9); POTASSIUM 3.6 mmol/L (3.5-5.1); SODIUM SERUM 138 mmol/L (136-145); UREA NITROGEN, BLOOD 9 mg/dL (7-18)
[2018-09-23] MEDS: NEOMY SULF/BACITRAC ZN/POLY 15 GM TUBE TP SCH ×2 (09:24→20:45)
[2018-09-23] MEDS: VANCOMYCIN 1 GM in IV D5W 250ml IV SCH ×2 (09:24→20:44)
[2018-09-23] MEDS: Magnesium 1GM/D5W 100ML PREMIX 100 ML IV SCH ×2 (11:11→12:55)
[2018-09-23] MEDS ORDERED: K PHOS NEUTRAL 250 MG TABLET PO ONE (13:30)
[2018-09-23 16:00] VITALS: BP 135/86
[2018-09-23] MEDS: FINASTERIDE (5 MG) 5 MG TABLET PO SCH (17:22)
[2018-09-23] MEDS: DILTIAZEM HCL CD 180 MG PO SCH (17:23)
--- NOTE | 2018-09-23 19:20 | NUR ---
RN NOTES: RECEIVED AWAKE ON BED, LYING COMFORTABLY IN BED, A/OX2-3, PER ENDORSEMENT HE SLEEP MOST OF THE TIME THIS MORNING SHIFT, RIGHT NOW HE IS AWAKE, INCONTIONENT, ON DIAPER, WITH MULTIPLE SKIN ISSUES, BLE ELEVATED AT ALL TIMES, LAC G#20 WITH 1/2NS=40 mEQ KCL AT 70 ML/HR ONGOING VIA INFUSION PUMP,ON INSULIN Q ACHS,ORIENTED TO UNIT AND STAFF, FALL,SAFETY AND ASPIRATION PRECAUTION OBSERVED, BED LOW AND LOCKED, CALL LIGHT WITHIN EASY REACH, KEPT ON CLOSE WATCH.
[2018-09-23 20:00] VITALS: BP 113/69
[2018-09-23] MEDS: ATORVASTATIN 10 MG TABLET PO SCH (21:53)
[2018-09-23] MEDS: TRAZODONE 50 MG TABLET PO SCH (22:02)
--- NOTE | 2018-09-23 22:34 | NUR ---
RN NOTES: BLOOD SUGAR =129, NO INSULIN GIVEN PER SCALE, WILL CONTINUE TO MONITOR FOR SIGN OF HYPER/HYPOGLYCEMIA.
[2018-09-23] MEDS: GUAIFENESIN/D-METHORPHAN HB 5 ML UDC PO PRN (23:42)
--- NOTE | 2018-09-23 23:45 | NUR ---
RN NOTES: -AT 2311 PATIENT IS STILL AWAKE, ALL DUE ORAL MEDS TAKEN, VERY COOPERATIVE A/OX3, HE IS WATCHING NEWS IN HER CELL PHONE,NOTED WITH ON AND OFF COUGH, UPON AUSCULTATION NO WHEEZING , NO PHLEGM, HE DESCRIBE IT LIKE IRRITATING COUGH, ITCHY ON HIS THROAT AND HE REQUEST FOR COUGH MEDICINE. -IMMEDIATELY NOTIFIED AND ORDERED FOR ROBITUSSIN 10 ML Q6H PRN FOR COUGH, VERIFIED IN THE PHARMACY SPOKE WITH BRITTANEY, FIRST DOSE GIVEN.
[2018-09-24 04:00] VITALS: BP 141/86
--- NOTE | 2018-09-24 05:28 | NUR ---
RN NOTES: AWAKE MOST OF THE TIME, CALLS AND NEEDS ATTENDED, REQUEST FOR COUGH MEDICAION EXPLAINED TO HIM HE IS NOT YET DUE, HE SAID HE WILL WAIT FOR THE NEXT DOSE, KEPT ON CLOSE WATCH,CALL LIGHT KEPT WITHIN EASY REACH, AWAKE MOST OF THE TIME WATCHING NEWS IN HIS CELL PHONE.
--- NOTE | 2018-09-24 06:30 | NUR ---
RN NOTES: MORNING CARE DONE, CLEAN AND CHANGE,KEPT IN COMFORTABLE POSITION, BED LOW AND LOCKED, CALL LIGHT WITHIN EASY REACH, ENDORSED FOR CONTINUITY OF CARE.
[2018-09-24 06:47] LABS: BASOPHILS % (AUTO) 0.4 % (0.0-2.0); EOSINOPHILS % (AUTO) 2.5 % (0.0-6.0); HEMATOCRIT 34 % (39-51); HEMOGLOBIN 11.8 g/dL (13.5-17.5); LYMPHOCYTES # (AUTO) 0.9 /CMM (0.8-4.8); MEAN CORPUSCULAR HGB CONC 34 g/dl (31.0-36.0); MEAN CORPUSCULAR VOLUME 86 fL (80-96); MONOCYTES # (AUTO) 0.9 /CMM (0.1-1.30); MONOCYTES % (AUTO) 12.3 % (2.0-12.0); NEUTROPHILS % (AUTO) 71.8 % (43.0-81.0); PLATELET COUNT (AUTO) 196 /CMM (150-450)
[2018-09-24 07:06] LABS: CALCIUM, SERUM 8.4 mg/dL (8.5-10.1); CARBON DIOXIDE 25 mmol/L (21-32); CHLORIDE 103 mmol/L (98-107); CREATININE 0.7 mg/dL (0.6-1.3); GLUCOSE 103 mg/dL (74-106); MAGNESIUM 1.9 mg/dL (1.8-2.4); PHOSPHORUS 3.1 mg/dL (2.5-4.9); POTASSIUM 4.1 mmol/L (3.5-5.1); SODIUM SERUM 138 mmol/L (136-145); UREA NITROGEN, BLOOD 8 mg/dL (7-18)
--- NOTE | 2018-09-24 07:30 | NUR ---
MS RN INITIAL NOTES RECEIVED PT IN BED, A/OX4. NC ON HEAD, DOES NOT WEAR IT CONSISTENTLY. O2 SAT 94%. NO S/SX OF LABORED BREATHING. LEGS ELEVATED ON PILLOWS. C/O PAIN 8/10 IN LEGS; REQUESTING NORCO AND COUGH SYRUP FOR COUGH. IV ON LAC #20 INFUSING 1/2 NS 40MEQ KCL AT 70ML/HR. NO S/SX OF INFILTRATION. BED IN LOCKED/LOWEST POSITION. CALL LIGHT IN REACH. WILL CONT TO MONITOR.
[2018-09-24 08:00] VITALS: BP 134/89
[2018-09-24] MEDS: PANTOPRAZOLE 40 MG TABLET.DR PO SCH (08:33)
[2018-09-24] MEDS: METOPROLOL SUCCINATE 25 MG TAB.SR.24H PO SCH (08:35)
[2018-09-24] MEDS: HYDROCODONE/APAP 10/325MG 1 EA TABLET PO PRN ×2 (08:35→16:21)
[2018-09-24] MEDS: ASPIRIN 81 MG TAB.CHEW PO SCH (08:36)
[2018-09-24] MEDS: VANCOMYCIN 1 GM in IV D5W 250ml IV SCH ×2 (08:36→21:39)
[2018-09-24] MEDS: PREGABALIN 100 MG CAPSULE PO SCH ×3 (08:36→17:35)
[2018-09-24] MEDS: GUAIFENESIN/D-METHORPHAN HB 5 ML UDC PO PRN ×3 (08:37→23:44)
[2018-09-24] MEDS: NEOMY SULF/BACITRAC ZN/POLY 15 GM TUBE TP SCH ×2 (08:37→21:41)
[2018-09-24] MEDS: BLOOD SUGAR DIAGNOSTIC 1 EACH STRIP IN SCH ×4 (10:02→21:42)
[2018-09-24 16:00] VITALS: BP 112/68
[2018-09-24] MEDS: FINASTERIDE (5 MG) 5 MG TABLET PO SCH (17:35)
[2018-09-24] MEDS: DILTIAZEM HCL CD 180 MG PO SCH (17:36)
--- NOTE | 2018-09-24 18:36 | NUR ---
ms rn end of shift notes pt resting in bed, vs stable. on room air; pt refusing to wear nc. spo2 wnl. no s/sx of labored breathing. iv fluids infusing. legs elevated on pillows. call light in reach. bed in locked/lowest position bed alarm on. will endorse to pm nurse for lacy.
[2018-09-24 20:00] VITALS: BP 113/72
--- NOTE | 2018-09-24 20:00 | NUR ---
RN NOTES: RECEIVED PATIENT AWAKE ON BED, LYING COMFORTABLY, A/OX3, ON DIAPER, WITH MULTIPLE SKIN ISSUES, BLE ELEVATED AT ALL TIMES, LAC G#20 WITH 1/2NS=40 mEQ KCL AT 70 ML/HR ONGOING VIA INFUSION PUMP,ORIENTED TO UNIT AND STAFF, FALL,SAFETY AND ASPIRATION PRECAUTION OBSERVED, BED LOW AND LOCKED, CALL LIGHT WITHIN EASY REACH, KEPT ON CLOSE WATCH.
[2018-09-24] MEDS: ATORVASTATIN 10 MG TABLET PO SCH (21:40)
[2018-09-24] MEDS: TRAZODONE 50 MG TABLET PO SCH (21:40)
[2018-09-25 04:00] VITALS: BP 128/65
[2018-09-25 07:04] LABS: CALCIUM, SERUM 8.6 mg/dL (8.5-10.1); CARBON DIOXIDE 25 mmol/L (21-32); CHLORIDE 106 mmol/L (98-107); CREATININE 0.7 mg/dL (0.6-1.3); GLUCOSE 94 mg/dL (74-106); POTASSIUM 4.2 mmol/L (3.5-5.1); SODIUM SERUM 141 mmol/L (136-145); UREA NITROGEN, BLOOD 8 mg/dL (7-18)
[2018-09-25] MEDS: GUAIFENESIN/D-METHORPHAN HB 5 ML UDC PO PRN ×2 (07:31→17:53)
--- NOTE | 2018-09-25 07:49 | NUR ---
RN NOTES PATIENT IS IN BED A/A/O X4, IN STABLE CONDITION. NO CHANGES DURING MY SHIFT. REPORT IS GIVEN TO AM RN FOR STUDIO TECHNICIAN VIDEO OPERATOR.
[2018-09-25 08:00] VITALS: BP 127/86
[2018-09-25] MEDS: BLOOD SUGAR DIAGNOSTIC 1 EACH STRIP IN SCH ×4 (08:28→21:37)
[2018-09-25] MEDS: PANTOPRAZOLE 40 MG TABLET.DR PO SCH (08:30)
[2018-09-25] MEDS: PREGABALIN 100 MG CAPSULE PO SCH ×3 (09:21→17:53)
[2018-09-25] MEDS: ASPIRIN 81 MG TAB.CHEW PO SCH (09:24)
[2018-09-25] MEDS: METOPROLOL SUCCINATE 25 MG TAB.SR.24H PO SCH (09:24)
[2018-09-25] MEDS: VANCOMYCIN 1 GM in IV D5W 250ml IV SCH ×2 (09:24→20:41)
[2018-09-25] MEDS: NEOMY SULF/BACITRAC ZN/POLY 15 GM TUBE TP SCH ×2 (09:29→21:00)
--- NOTE | 2018-09-25 12:24 | NUR ---
blood sugar 116mg/dl patient is currently asllep
[2018-09-25 16:00] VITALS: BP 109/66
[2018-09-25] MEDS: DILTIAZEM HCL CD 180 MG PO SCH (17:51)
[2018-09-25] MEDS: FINASTERIDE (5 MG) 5 MG TABLET PO SCH (17:52)
--- NOTE | 2018-09-25 17:57 | NUR ---
blood sugar 78mg/dl. will inform Dr Pelayo that the patient blood sugar is low parameters.
--- NOTE | 2018-09-25 18:19 | NUR ---
DR ROSENTHAL PAGED AND INFORMED THAT THE PATIENT BLOOD SUGAR IS 78MG/DL.WITH ORDERS AND CARRIED OUT
[2018-09-25] MEDS: IV D5/0.45 NACL 1,000 ML IV SCH (18:39)
--- NOTE | 2018-09-25 19:09 | NUR ---
iv fluids started as ordered
--- NOTE | 2018-09-25 19:30 | NUR ---
RN NOTES RECEIVED PT. AWAKE ON BED, A/OX3., EX- AT BEDSIDE, DENIES PAIN, NO SOB, CALL LIGHT WITHIN REACH, [id number], CONTINUE TO MONITOR
[2018-09-25 20:00] VITALS: BP 136/67
[2018-09-25] MEDS: ATORVASTATIN 10 MG TABLET PO SCH (21:37)
[2018-09-25] MEDS: TRAZODONE 50 MG TABLET PO SCH (21:37)
[2018-09-26 04:00] VITALS: BP 134/83
[2018-09-26] MEDS: IV D5/0.45 NACL 1,000 ML IV SCH (06:00)
--- NOTE | 2018-09-26 06:27 | NUR ---
RN NOTES AWAKE, DENIES PAIN, NO SOB, MORNING CARE RENDERED, CALL LIGHT WITHIN REACH, [id number] PT. NEEDS ATTENDED
[2018-09-26] MEDS: BLOOD SUGAR DIAGNOSTIC 1 EACH STRIP IN SCH ×3 (07:39→17:13)
--- NOTE | 2018-09-26 07:52 | NUR ---
RN OPENING NOTES PT AWAKE AND RESTING IN BED. NO COMPLAINTS OF PAIN, SOB OR DISTRESS AT THIS TIME. PATIENT HAS RIGHT HAND #22 IV RUNNING D51/2NS @80ML/HR, PT TOLERATING WELL. SAFETY PRECAUTIONS IN PLACE, BED IN LOWEST LOCKED POSITION, X2 SIDE RAILS UP AND CALL LIGHT WITHIN REACH. WILL CONTINUE TO MONITOR.
[2018-09-26 08:00] VITALS: BP 163/110
[2018-09-26 08:09] LABS: CALCIUM, SERUM 8.3 mg/dL (8.5-10.1); CARBON DIOXIDE 26 mmol/L (21-32); CHLORIDE 104 mmol/L (98-107); CREATININE 0.8 mg/dL (0.6-1.3); GLUCOSE 111 mg/dL (74-106); POTASSIUM 4.1 mmol/L (3.5-5.1); SODIUM SERUM 137 mmol/L (136-145); UREA NITROGEN, BLOOD 10 mg/dL (7-18)
[2018-09-26] MEDS: ASPIRIN 81 MG TAB.CHEW PO SCH (08:22)
[2018-09-26] MEDS: PANTOPRAZOLE 40 MG TABLET.DR PO SCH (08:22)
[2018-09-26] MEDS: PREGABALIN 100 MG CAPSULE PO SCH ×3 (08:22→17:13)
[2018-09-26] MEDS: METOPROLOL SUCCINATE 25 MG TAB.SR.24H PO SCH (08:23)
[2018-09-26] MEDS: VANCOMYCIN 1 GM in IV D5W 250ml IV SCH (08:24)
[2018-09-26] MEDS: NEOMY SULF/BACITRAC ZN/POLY 15 GM TUBE TP SCH (08:25)
[2018-09-26] MEDS ORDERED: IV D5/0.45 NACL 1,000 ML IV PRN (09:00)
[2018-09-26 16:00] VITALS: BP 123/56
[2018-09-26 17:13] VITALS: BP 123/84
[2018-09-26] MEDS: DILTIAZEM HCL CD 180 MG PO SCH (17:13)
[2018-09-26] MEDS: FINASTERIDE (5 MG) 5 MG TABLET PO SCH (17:14)
--- NOTE | 2018-09-26 18:31 | NUR ---
LICENSED INSURANCE SALES AGENT NOTES PATIENT STABLE AT DISCHARGE. ALL DISCHARGE PAPERWORK DISCUSSED, SIGNED, COPIED, AND DISCHARGED WITH PATIENT. ALL PATIENT BELONGINGS TAKEN WITH PATIENT. PT IV AND ID REMOVED AT DISCHARGE. PT ESCORTED OFF OF UNIT VIA GURNEY BY 2 OPERATIONS GENERAL AGENT FROM [facility] AT 1825.
== END 2018-09-26 18:30 | DRG 264 ==
LOC: ER 22:25 → TELE-TD 09-21 01:39 → TELE1 09-21 05:41 → MEDSG1 09-21 10:20
PROVIDERS: ADMIT Registered Nurse; ATTEND Internal Medicine
PROC: 0JBP0ZZ Excision of Left Lower Leg Subcutaneous Tissue and Fascia, Open Approach (ICD-10-PCS; principal; 2018-09-22)
PROC: 0JBN0ZZ Excision of Right Lower Leg Subcutaneous Tissue and Fascia, Open Approach (ICD-10-PCS; 2018-09-22)
DX: I87.313 Chronic venous hypertension (idiopathic) with ulcer of bilateral lower extremity (principal); G92 Toxic encephalopathy; I50.33 Acute on chronic diastolic (congestive) heart failure; L03.116 Cellulitis of left lower limb; E44.1 Mild protein-calorie malnutrition; L97.829 Non-pressure chronic ulcer of other part of left lower leg with unspecified severity; L97.919 Non-pressure chronic ulcer of unspecified part of right lower leg with unspecified severity; L03.115 Cellulitis of right lower limb; E83.42 Hypomagnesemia; I25.10 Atherosclerotic heart disease of native coronary artery without angina pectoris; I11.0 Hypertensive heart disease with heart failure; E11.65 Type 2 diabetes mellitus with hyperglycemia; E87.6 Hypokalemia; I25.2 Old myocardial infarction; I48.91 Unspecified atrial fibrillation; I35.0 Nonrheumatic aortic (valve) stenosis; N40.0 Benign prostatic hyperplasia without lower urinary tract symptoms; E11.51 Type 2 diabetes mellitus with diabetic peripheral angiopathy without gangrene; G89.4 Chronic pain syndrome; F03.90 Unspecified dementia, unspecified severity, without behavioral disturbance, psychotic disturbance, mood disturbance, and anxiety; Z68.25 Body mass index [BMI] 25.0-25.9, adult; S80.211A Abrasion, right knee, initial encounter; X58.XXXA Exposure to other specified factors, initial encounter; Y92.89 Other specified places as the place of occurrence of the external cause; S51.011A Laceration without foreign body of right elbow, initial encounter; R62.7 Adult failure to thrive; I87.8 Other specified disorders of veins; R29.6 Repeated falls; Z87.891 Personal history of nicotine dependence; S00.01XA Abrasion of scalp, initial encounter; L85.3 Xerosis cutis
CPT/HCPCS: 36415; 70450-TC; 71045-TC; 80048-TC; 80053-TC; 80061-TC; 80202-TC; 81000-TC; 82945-TC; 82962-TC; 83540-TC; 83735-TC; 84100-TC; 84443-TC; 84484-TC; 85025-TC; 87081-TC; 87086-TC; 93970-TC; 97110-TC; 97116-TC; 97530-TC; A4349; A6403; G0378; J1815; J2405; J3370; J3475; J3480; J3490; J7040; J7060

== ENCOUNTER 2019-03-16 17:12 | Inpatient (IN) | payer MEDICARE ==
[~2019-03-16] VITALS: Ht 182.9 cm; Wt 86.6 kg
[~2019-03-16 17:12] MED LIST changes: -AMOX-430 PO; -HYDR-4354 PO; -METO-356 PO; +METO25TA4 PO; +OMEP40CA13 PO; -OMEP40CA37 PO
--- NOTE | 2019-03-16 18:15 | NUR ---
PT AAOX4. BIB Family PER DAUGHTER "He has been weak/sleeping a lot and he over medicates himself with norco" pt AAOX4. NO NEURO DEFICIT, PLACED ON MONITOR AND PULSE OX. NO ACUTE DISTRESS NOTED. RR EVEN AND UNLABORED.
--- NOTE | 2019-03-16 18:29 | NUR ---
MANAGER HOME HEALTHCARE AT BEDSIDE
[2019-03-16 18:32] LABS: BASOPHILS % (AUTO) 0.3 % (0.0-2.0); EOSINOPHILS % (AUTO) 1.5 % (0.0-6.0); HEMATOCRIT 39 % (39-51); HEMOGLOBIN 12.9 g/dL (13.5-17.5); LYMPHOCYTES # (AUTO) 0.8 /CMM (0.8-4.8); LYMPHOCYTES % (AUTO) 12.6 % (20.0-44.0); MEAN CORPUSCULAR HGB CONC 33 g/dl (31.0-36.0); MEAN CORPUSCULAR VOLUME 86 fL (80-96); MONOCYTES # (AUTO) 0.5 /CMM (0.1-1.30); NEUTROPHILS # (AUTO) 5.2 /CMM (1.8-8.9); NEUTROPHILS % (AUTO) 78.6 % (43.0-81.0); PLATELET COUNT (AUTO) 165 /CMM (150-450); RED BLOOD CELL COUNT(AUTO) 4.59 MIL/uL (4.5-6.0); WHITE BLOOD COUNT (AUTO) 6.6 K/uL (4.3-11.0)
[2019-03-16 18:43] LABS: CALCIUM, SERUM 8.9 mg/dL (8.5-10.1); CARBON DIOXIDE 34 mmol/L (21-32); CHLORIDE 106 mmol/L (98-107); CREATININE 0.9 mg/dL (0.6-1.3); GLUCOSE 124 mg/dL (74-106); POTASSIUM 3.6 mmol/L (3.5-5.1); SODIUM SERUM 145 mmol/L (136-145); UREA NITROGEN, BLOOD 20 mg/dL (7-18)
[2019-03-16 19:13] LABS: ALANINE AMINOTRANSFERASE 43 U/L (12-78); ALBUMIN 3.3 g/dL (3.4-5.0); ALKALINE PHOSPHATASE 59 U/L (46-116); ASPARTATE AMINOTRANSFERASE 17 U/L (15-37); B-TYPE NATRIURETIC PEPTIDE 1523 PG/ML (0-125); BILIRUBIN,DIRECT 0.1 mg/dL (0.0-0.2); BILIRUBIN,TOTAL 0.6 mg/dL (0.2-1.0); TOTAL PROTEIN, SERUM 6.4 g/dL (6.4-8.2)
--- NOTE | 2019-03-16 19:18 | NUR ---
PT RESTING COMFORTABLY. VSS.
--- NOTE | 2019-03-16 19:59 | NUR ---
DR CALERO TRANSFERRED TO MEDARDO PEARSON FOR PANEL
[2019-03-16] MEDS ORDERED: IV NS 0.9% 1,000 ML IV PRN (20:05)
--- NOTE | 2019-03-16 20:07 | NUR ---
BED ASSIGNMENT 327-1
[2019-03-16] MEDS ORDERED: Z GUARD REMEDY 2 OZ OINT TP PRN (20:30)
[2019-03-16] MEDS ORDERED: ACETAMINOPHEN 325 MG TABLET PO PRN (20:30)
[2019-03-16] MEDS ORDERED: ONDANSETRON HCL/PF 4 MG/2 ML VIAL IVP PRN (20:30)
--- NOTE | 2019-03-16 20:37 | NUR ---
URINE COLLECTED AND SENT TO LAB
[2019-03-16 20:52] LABS: ABG BASE EXCESS 3.8 mmol/L; ABG OXYGEN SATURATION 94.9 % (92.0-98.5); ABG PCO2 39.4 mmHg (35.0-45.0); ABG PH 7.466 (7.350-7.450); ABG PO2 79.6 mmHg (75.0-100.0); COHb 0.5 % (0.5-1.5); MetHb 0.2 % (0.0-1.5); O2Hb 94.2 % (94.0-97.0); SITE, ABG Right Radial; VENT MODE, BG Room Air
[2019-03-16 20:56] LABS: APPEARANCE,URINE CLEAR (CLEAR); BILIRUBIN,URINE NEGATIVE (NEGATIVE); BLOOD, URINE NEGATIVE Ery/uL (NEGATIVE); COLOR,URINE YELLOW (YELLOW); KETONES,URINE NEGATIVE (NEGATIVE); LEUKOCYTE ESTERASE ,URINE NEGATIVE (NEGATIVE); NITRITE, URINE NEGATIVE (NEGATIVE); PROTEIN,URINE NEGATIVE (NEGATIVE); UGLUCOSE NEGATIVE (NEGATIVE)
--- NOTE | 2019-03-16 20:59 | NUR ---
REPORT GIVEN TO AGUSTINA CHOI FOR MERISSA
[2019-03-16 21:15] VITALS: BP 162/89
[2019-03-16 21:30] VITALS: BP 162/89
--- NOTE | 2019-03-16 21:30 | NUR ---
MS COPY SUPERVISOR NOTES RECEIVED PATIENT FROM ER VIA GURNEY ACCOMPANIED BY ER STAFFS. ALERT AND ORIENTED X 2-3 VERBALLY RESPONSIVE AND ABLE TO FOLLOW DIRECTIONS. BREATHING REGULAR AND UNLABORED ON ROOM AIR. RIGHT AC G20 IV LINE INTACT AND PATENT, FLUSHING WELL WITH NO BLEEDING OR S/S OF INFILTRATION NOTED. BODY ASSESSMENT DONE, SEEN WITH DRY SCABS ON THE HEAD, BUE BRUISES, LEFT GROIN AND SACRAL REDNESS, BLE REDNESS, SWELLING AND SCALY SKIN. ALSO OBSERVED WITH RIGHT LOWER POSTERIOR LEG AND LEFT FOOT BIG TOE OPEN WOUNDS. PHOTO TAKEN, ATTACHED TO CHART. INITIAL VITAL SIGNS TAKEN. BELONGINGS CHECKED BY POLICE BOOKING OFFICER. NO REPORTS OF PAIN/DISCOMFORT OF THE TIME. BED LOW AND LOCKED ON SEMI FOWLERS POSITION. CALL LIGHT IN REACH. WILL CONTINUE TO MONITOR.
[2019-03-16] MEDS ORDERED: VANCOMYCIN 1 GM VIAL ONE (22:08)
[2019-03-16] MEDS ORDERED: CEFTRIAXONE 1 G VIAL ONE (22:09)
[2019-03-16] MEDS: CEFTRIAXONE 1 G in IV D5W 50 ML IV SCH (22:23)
[2019-03-16] MEDS ORDERED: VANCOMYCIN 1 GM in IV D5W 250ml IV ONE (22:30)
--- NOTE | 2019-03-16 22:30 | NUR ---
MS RN NOTES STARTED ON ROCEPHIN 1GM IV, INITIAL DOSE TAKEN BY CHARGE NURSE FROM [facility]. WILL CONTINUE TO MONITOR FOR DRUG ADVERSE REACTIONS.
--- NOTE | 2019-03-16 23:30 | NUR ---
MS RN NOTES STARTED ON VANCOMYCIN 1GM IV, INITIAL DOSE TAKEN BY CHARGE NURSE FROM [facility]. WILL CONTINUE TO MONITOR FOR DRUG ADVERSE REACTIONS.
--- NOTE | 2019-03-17 06:40 | NUR ---
MS RN CLOSING NOTES PATIENT IN BED ALERT AND ORIENTED X 3. VERBALLY RESPONSIVE AND ABLE TO FOLLOW DIRECTIONS. BREATHING REGULAR AND UNLABORED ON ROOM AIR. RIGHT AC G20 IV LINE INTACT AND INFUSING WELL. ON IV ATB'S FOR BLE CELLULITIS WITH NO ADVERSE REACTIONS OBSERVED. NO REPORTS OF PAIN/DISCOMFORT THE WHOLE SHIFT. BED LOW AND LOCKED ON SEMI FOWLERS POSITION. CALL LIGHT IN REACH. WILL ENDORSE TO MORNING SHIFT FOR MERISSA.
--- NOTE | 2019-03-17 07:00 | NUR ---
MS/RN Opening Note Pt received AO to person, place and situations , able to response all stimuli. Pt. does no c/o pain nor any discomfort. Skin is warm to touch, intact IV site. Pt is on ATB therapy, no s/s of adverse reaction observed. Kept remain low bed position with elevated HOB, respiratory even and unlabored. Call light within reach, will continue to minor
[2019-03-17 07:05] LABS: BASOPHILS % (AUTO) 0.3 % (0.0-2.0); EOSINOPHILS % (AUTO) 1.9 % (0.0-6.0); HEMATOCRIT 39 % (39-51); HEMOGLOBIN 12.9 g/dL (13.5-17.5); LYMPHOCYTES # (AUTO) 1.2 /CMM (0.8-4.8); LYMPHOCYTES % (AUTO) 17.4 % (20.0-44.0); MEAN CORPUSCULAR HGB CONC 33 g/dl (31.0-36.0); MEAN CORPUSCULAR VOLUME 85 fL (80-96); MONOCYTES # (AUTO) 0.6 /CMM (0.1-1.30); MONOCYTES % (AUTO) 8.7 % (2.0-12.0); NEUTROPHILS # (AUTO) 4.9 /CMM (1.8-8.9); NEUTROPHILS % (AUTO) 71.7 % (43.0-81.0); PLATELET COUNT (AUTO) 152 /CMM (150-450); RED BLOOD CELL COUNT(AUTO) 4.65 MIL/uL (4.5-6.0); WHITE BLOOD COUNT (AUTO) 6.9 K/uL (4.3-11.0)
[2019-03-17 08:00] VITALS: BP 155/97
[2019-03-17 08:08] LABS: BILIRUBIN,TOTAL 0.7 mg/dL (0.2-1.0); CALCIUM, SERUM 8.8 mg/dL (8.5-10.1); CREATININE 0.8 mg/dL (0.6-1.3); MAGNESIUM 1.6 mg/dL (1.8-2.4); PHOSPHORUS 2.7 mg/dL (2.5-4.9)
[2019-03-17] MEDS ORDERED: FEE PK DOSING 1 MIN EA MC ONE (08:31)
[2019-03-17] MEDS: ASPIRIN 81 MG TAB.CHEW PO SCH (08:54)
[2019-03-17] MEDS: METOPROLOL SUCCINATE 25 MG TAB.SR.24H PO SCH (08:55)
[2019-03-17] MEDS: ATORVASTATIN 10 MG TABLET PO SCH (08:56)
[2019-03-17] MEDS: METOLAZONE 2.5 MG TABLET PO SCH (08:56)
[2019-03-17] MEDS: PREGABALIN 25 MG CAPSULE PO SCH ×3 (10:18→17:34)
[2019-03-17] MEDS: predniSONE 20 MG TABLET PO SCH (10:32)
[2019-03-17 10:46] LABS: ABG BASE EXCESS 1.9 mmol/L; ABG PCO2 30.5 mmHg (35.0-45.0); ABG PH 7.515 (7.350-7.450); ABG PO2 81.1 mmHg (75.0-100.0); AaDO2 32.1 mmHg; O2Hb 94.5 % (94.0-97.0); SITE, ABG Left Radial
[2019-03-17 10:47] LABS: COHb 1.1 % (0.5-1.5); MetHb 0.5 % (0.0-1.5); VENT MODE, BG ROOM AIR
[2019-03-17] MEDS ORDERED: VANCOMYCIN 1 GM in IV D5W 250 ML IV SCH (11:00)
[2019-03-17] MEDS: Magnesium 1GM/D5W 100ML PREMIX 100 ML IV SCH ×2 (11:42→13:07)
[2019-03-17] MEDS: FUROSEMIDE 40 MG/4 ML VIAL IV SCH (11:42)
[2019-03-17] MEDS: NEOMY SULF/BACITRAC ZN/POLY 15 GM TUBE TP SCH ×2 (13:09→17:40)
[2019-03-17] MEDS: CLOTRIMAZOLE 1% 15 GM TUBE TP SCH ×2 (13:09→17:40)
[2019-03-17 16:00] VITALS: BP 145/98
[2019-03-17] MEDS: FINASTERIDE (5 MG) 5 MG TABLET PO SCH (17:36)
[2019-03-17] MEDS: DILTIAZEM HCL CD 180 MG PO SCH (17:36)
--- NOTE | 2019-03-17 18:00 | NUR ---
MS RN NOTES PATIENT IN BED RESTING NO SOB OR ACUTE DISTRESS NOTED. ALL DUE MEDICATIONS ADMINISTERED. ALL NEEDS MET. NO ACUTE CHANGES NOTED DURING SHIFT. WILL ENDORSE TO PM SHIFT MERISSA.
--- NOTE | 2019-03-17 19:40 | NUR ---
AERODYNAMICS PROFESSOR NOTE: PATIENT RESTING IN BED, NO ACUTE DISTRESS NOTED. BREATHING EVEN AND UNLABORED, NO SOB NOTED. IV TO RAC IN PLACE. BED LOCKED AND IN LOWEST POSITION, CALL LIGHT IN REACH. WILL CONTINUE TO MONITOR. Addendum: 03/17/19 at 2104 by TOREY YOUNG RN MS PATIENT ONLY
[2019-03-17 20:00] VITALS: BP 129/86
[2019-03-17] MEDS: CEFTRIAXONE 1 G in IV D5W 50 ML IV SCH (21:15)
--- NOTE | 2019-03-18 03:00 | NUR ---
MS RN NOTE: PATIENT SLEEPING IN BED, NO ACUTE DISTRESS NOTED. BREATHING EVEN AND UNLABORED, NO SOB NOTED. BED LOCKED AND IN LOWEST POSITION, CALL LIGHT IN REACH. WILL CONTINUE TO MONITOR.
--- NOTE | 2019-03-18 06:15 | NUR ---
MS RN NOTE: PATIENT SLEEPING IN BED, NO ACUTE DISTRESS NOTED. BREATHING EVEN AND UNLABORED, NO SOB NOTED. IV TO RAC IN PLACE. BED LOCKED AND IN LOWEST POSITION, CALL LIGHT IN REACH. WILL ENDORSE TO DAY NURSE TO CONTINUE WITH PLAN OF CARE.
--- NOTE | 2019-03-18 07:00 | NUR ---
MS/RN Opening Note Received Patient AO x 3, denies pain or discomfort, skin is warm to touch, kept intact IV site. Provided skin care and applied Rx cream/ointment as ordered. Respiratory even and unlabored, O2sat 97 in room air. call light within reach, will continue to monitor.
[2019-03-18 08:00] VITALS: BP 146/93
[2019-03-18] MEDS: SILVER SULFADIAZINE 50 GM JAR TP SCH (09:06)
[2019-03-18] MEDS: FUROSEMIDE 40 MG/4 ML VIAL IV SCH (09:07)
[2019-03-18] MEDS: PREGABALIN 25 MG CAPSULE PO SCH ×3 (09:07→17:11)
[2019-03-18] MEDS: ASPIRIN 81 MG TAB.CHEW PO SCH (09:07)
[2019-03-18] MEDS: ATORVASTATIN 10 MG TABLET PO SCH (09:07)
[2019-03-18] MEDS: predniSONE 20 MG TABLET PO SCH (09:08)
[2019-03-18] MEDS: METOLAZONE 2.5 MG TABLET PO SCH (09:08)
[2019-03-18] MEDS: METOPROLOL SUCCINATE 25 MG TAB.SR.24H PO SCH (09:08)
[2019-03-18] MEDS: NEOMY SULF/BACITRAC ZN/POLY 15 GM TUBE TP SCH ×2 (09:09→17:12)
[2019-03-18] MEDS: CLOTRIMAZOLE 1% 15 GM TUBE TP SCH ×2 (09:09→17:12)
[2019-03-18 16:00] VITALS: BP 110/70
[2019-03-18] MEDS: DILTIAZEM HCL CD 180 MG PO SCH (17:11)
[2019-03-18] MEDS: FINASTERIDE (5 MG) 5 MG TABLET PO SCH (17:11)
--- NOTE | 2019-03-18 18:18 | NUR ---
MS/RN Closing note Pt is in bed comfortably, watching TV. Denies pain at this time. Skin is warm to touch, given dressing change on right leg, no s/s of adverse reaction from ATB therapy, respiratory even and unlabored. Will continue to monitor.
[2019-03-18 20:00] VITALS: BP 117/72
--- NOTE | 2019-03-18 20:48 | NUR ---
RN NOTES PM SHIFT PATIENT ALERT AND ORIENTED X3, ON ROOM AIR, DENIES PAIN AT THIS TIME, VOIDING VIA URINAL, FALL PRECAUTION, WILL CONTINUE TO MONITOR.
[2019-03-18] MEDS: CEFTRIAXONE 1 G in IV D5W 50 ML IV SCH (21:56)
--- NOTE | 2019-03-19 06:38 | NUR ---
RN NOTES PM SHIFT PATIENT ALERT AND ORIENTED X3, CALM, NO SOB, NO CHANGE OF CONDITION DURING SHIFT, VOIDING SPONTANEOUSLY VIA URINAL, ROCEPHIN IV GIVEN, URINE CULTURE AND BLOOD CULTURE BOTH NEGATIVE, CONTINUE WOUND CARE, AWAITING PLACEMENT TO SNF, PT LIVES ALONE.
[2019-03-19 07:21] LABS: BASOPHILS % (AUTO) 0.2 % (0.0-2.0); EOSINOPHILS % (AUTO) 1.2 % (0.0-6.0); HEMATOCRIT 42 % (39-51); HEMOGLOBIN 14.3 g/dL (13.5-17.5); LYMPHOCYTES # (AUTO) 1.6 /CMM (0.8-4.8); MEAN CORPUSCULAR HGB CONC 34 g/dl (31.0-36.0); MEAN CORPUSCULAR VOLUME 83 fL (80-96); MONOCYTES # (AUTO) 0.8 /CMM (0.1-1.30); MONOCYTES % (AUTO) 9.9 % (2.0-12.0); NEUTROPHILS # (AUTO) 5.6 /CMM (1.8-8.9); NEUTROPHILS % (AUTO) 68.7 % (43.0-81.0); PLATELET COUNT (AUTO) 170 /CMM (150-450); RED BLOOD CELL COUNT(AUTO) 5.04 MIL/uL (4.5-6.0); WHITE BLOOD COUNT (AUTO) 8.1 K/uL (4.3-11.0)
[2019-03-19 07:30] LABS: CALCIUM, SERUM 9.4 mg/dL (8.5-10.1); CREATININE 0.9 mg/dL (0.6-1.3); POTASSIUM 3.4 mmol/L (3.5-5.1)
--- NOTE | 2019-03-19 07:42 | NUR ---
MS/RN Opening note PAtient received resting in bed, A/O x3, showing no signs of acute distress or SOB, saturating >95% on RA. IV line is clean and intact s/l. Patient uses urinal but is able to ambulate with walker and stand-by assistance. Bed is in lowest position, side rails x3 in upright position, call light is within reach and patient is aware of how to call for assistance when needed. Safety, fall and aspiration precautions enforced. Will continue with plan of care.
[2019-03-19 08:00] VITALS: BP 137/69
[2019-03-19] MEDS: FUROSEMIDE 40 MG/4 ML VIAL IV SCH (08:37)
[2019-03-19] MEDS: ATORVASTATIN 10 MG TABLET PO SCH (08:38)
[2019-03-19] MEDS: predniSONE 20 MG TABLET PO SCH (08:38)
[2019-03-19] MEDS: METOLAZONE 2.5 MG TABLET PO SCH (08:38)
[2019-03-19] MEDS: METOPROLOL SUCCINATE 25 MG TAB.SR.24H PO SCH (08:38)
[2019-03-19] MEDS: ASPIRIN 81 MG TAB.CHEW PO SCH (08:38)
[2019-03-19] MEDS: SILVER SULFADIAZINE 50 GM JAR TP SCH (08:40)
[2019-03-19] MEDS: PREGABALIN 25 MG CAPSULE PO SCH (08:40)
[2019-03-19] MEDS: CLOTRIMAZOLE 1% 15 GM TUBE TP SCH ×2 (08:41→16:19)
[2019-03-19] MEDS: NEOMY SULF/BACITRAC ZN/POLY 15 GM TUBE TP SCH ×2 (08:41→16:19)
[2019-03-19] MEDS ORDERED: POTASSIUM CHLORIDE 20 MEQ TAB.PRT.SR PO SCH (11:00)
[2019-03-19] MEDS ORDERED: HYDROCODONE/APAP 5/325MG 1 EACH TABLET PO PRN (11:30)
[2019-03-19] MEDS ORDERED: PREGABALIN 25 MG CAPSULE PO SCH (13:00)
[2019-03-19] MEDS: PREGABALIN 100 MG CAPSULE PO SCH ×2 (13:20→16:18)
[2019-03-19 16:00] VITALS: BP 112/74
--- NOTE | 2019-03-19 18:33 | NUR ---
MS/RN Closing note PAtient received resting in bed, A/O x3, showing no signs of acute distress or SOB, saturating >95% on RA. IV line is clean and intact s/l. Patient uses urinal but is able to ambulate with walker and stand-by assistance. Urine output 1450 cc clear yellow. All patient needs met, all due meds given, wound care done as ordered. Patient kept clean and dry throughout shift. Bed is in lowest position, side rails x3 in upright position, call light is within reach and patient is aware of how to call for assistance when needed. Safety, fall and aspiration precautions enforced. Will endorse to machine pie maker.
[2019-03-19] MEDS: FINASTERIDE (5 MG) 5 MG TABLET PO SCH (18:38)
[2019-03-19] MEDS: DILTIAZEM HCL CD 180 MG PO SCH (18:38)
--- NOTE | 2019-03-19 19:30 | NUR ---
MS RN OPENING NOTES RECEIVED PATIENT FROM MORNING SHIFT. ALERT AND ORIENTED X 3 VERBALLY RESPONSIVE AND ABLE TO FOLLOW DIRECTIONS. BREATHING REGULAR AND UNLABORED ON ROOM AIR. RIGHT AC G20 IV LINE INTACT AND PATENT, FLUSHING WELL WITH NO BLEEDING OR S/S OF INFILTRATION NOTED. BODY ASSESSMENT DONE, SEEN WITH DRY SCABS ON THE HEAD, BUE BRUISES, LEFT GROIN AND SACRAL REDNESS, BLE REDNESS AND SCALY SKIN. ALSO OBSERVED WITH RIGHT LOWER POSTERIOR LEG AND LEFT FOOT BIG TOE OPEN WOUNDS. NO REPORTS OF PAIN/DISCOMFORT OF THE TIME. BED LOW AND LOCKED ON SEMI FOWLERS POSITION. CALL LIGHT IN REACH. WILL CONTINUE TO MONITOR.
[2019-03-19 20:54] VITALS: BP 117/87
[2019-03-19] MEDS: CEFTRIAXONE 1 G in IV D5W 50 ML IV SCH (21:14)
--- NOTE | 2019-03-19 21:15 | NUR ---
MS RN NOTES IV LINE REINSERTED ON LEFT FOREARM G22 WITH GOOD BLOOD BACKFLOW FLUSHING WELL. WILL CONTINUE TO MONITOR.
[2019-03-19 22:00] VITALS: BP 117/87
--- NOTE | 2019-03-20 06:20 | NUR ---
MS RN CLOSING NOTES PATIENT IN BED ALERT AND ORIENTED X 3. VERBALLY RESPONSIVE AND ABLE TO FOLLOW DIRECTIONS. BREATHING REGULAR AND UNLABORED ON ROOM AIR. LEFT FOREARM G22 IV LINE INTACT AND FLUSHING WELL. ON-GOING WOUND TREATMENTS PROVIDED. NO REPORTS OF PAIN/DISCOMFORT THE WHOLE SHIFT. ON IV ATB FOR BLE CELLULITIS WITH NO DRUG ADVERSE REACTIONS OBSERVED. BED LOW AND LOCKED ON SEMI FOWLERS POSITION. CALL LIGHT IN REACH. WILL ENDORSE TO MORNING SHIFT FOR MERISSA.
[2019-03-20 07:30] LABS: BASOPHILS % (AUTO) 0.1 % (0.0-2.0); EOSINOPHILS % (AUTO) 1.4 % (0.0-6.0); HEMATOCRIT 43 % (39-51); HEMOGLOBIN 14.2 g/dL (13.5-17.5); LYMPHOCYTES # (AUTO) 1.8 /CMM (0.8-4.8); LYMPHOCYTES % (AUTO) 21.9 % (20.0-44.0); MEAN CORPUSCULAR HGB CONC 34 g/dl (31.0-36.0); MEAN CORPUSCULAR VOLUME 83 fL (80-96); MONOCYTES # (AUTO) 0.9 /CMM (0.1-1.30); MONOCYTES % (AUTO) 11.1 % (2.0-12.0); NEUTROPHILS # (AUTO) 5.3 /CMM (1.8-8.9); NEUTROPHILS % (AUTO) 65.5 % (43.0-81.0); PLATELET COUNT (AUTO) 173 /CMM (150-450); RED BLOOD CELL COUNT(AUTO) 5.11 MIL/uL (4.5-6.0); WHITE BLOOD COUNT (AUTO) 8.1 K/uL (4.3-11.0)
[2019-03-20 07:38] LABS: CALCIUM, SERUM 9.1 mg/dL (8.5-10.1); POTASSIUM 3.1 mmol/L (3.5-5.1)
[2019-03-20 08:00] VITALS: BP_SYST 124; BP_SYST 139; BP_DIAS 74; BP_DIAS 89
--- NOTE | 2019-03-20 08:00 | NUR ---
m/s deck officer: initial assessment received pt in bed awake, a/ox3. no c/o pain or any discomfort. vss. instructed to call for assistance.
[2019-03-20] MEDS: METOPROLOL SUCCINATE 25 MG TAB.SR.24H PO SCH (08:58)
[2019-03-20] MEDS: METOLAZONE 2.5 MG TABLET PO SCH (08:58)
[2019-03-20] MEDS: PREGABALIN 100 MG CAPSULE PO SCH ×2 (08:59→13:34)
[2019-03-20] MEDS: ASPIRIN 81 MG TAB.CHEW PO SCH (08:59)
[2019-03-20] MEDS: predniSONE 20 MG TABLET PO SCH (08:59)
[2019-03-20] MEDS: ATORVASTATIN 10 MG TABLET PO SCH (08:59)
[2019-03-20] MEDS: NEOMY SULF/BACITRAC ZN/POLY 15 GM TUBE TP SCH ×2 (09:00→17:47)
[2019-03-20] MEDS: SILVER SULFADIAZINE 50 GM JAR TP SCH (09:00)
[2019-03-20] MEDS: CLOTRIMAZOLE 1% 15 GM TUBE TP SCH ×2 (09:00→17:47)
[2019-03-20] MEDS ORDERED: POTASSIUM CHLORIDE 20 MEQ TAB.PRT.SR PO SCH (09:00)
[2019-03-20] MEDS: FUROSEMIDE 40 MG/4 ML VIAL IV SCH (09:28)
--- NOTE | 2019-03-20 10:00 | NUR ---
m/s wellness nurse: notes resting comfortable in bed. no distress noted. wound tx done as ordered.
--- NOTE | 2019-03-20 11:00 | NUR ---
m/s retail seasonal specialist: md visit jennifer alarcon ([facility]) here and informed that pt desaturated at 85% this morning on room air, but not sob or in distress. o2 provided at 2l/min via n/c and went up to 93% with order to do chest x-ray. order read back and carried out and acknowledged.
--- NOTE | 2019-03-20 12:25 | NUR ---
m/s plastic design applier: dpm f/u seen and examined by dr. teajda with tx orders. orders acknowledged. tx initiated as ordered.
--- NOTE | 2019-03-20 15:03 | NUR ---
m/s brine well operator: neuro f/u seen and examined by dr. dia with verbal order to cut lyrica back to 150mg po tid. order read back and carried out.
[2019-03-20 16:30] VITALS: BP 103/67
[2019-03-20] MEDS: PREGABALIN 25 MG CAPSULE PO SCH (17:46)
[2019-03-20] MEDS: FINASTERIDE (5 MG) 5 MG TABLET PO SCH (17:47)
[2019-03-20] MEDS: DILTIAZEM HCL CD 180 MG PO SCH (17:48)
--- NOTE | 2019-03-20 18:10 | NUR ---
m/s dog licenser: notes pt resting comfortable in bed. having dinner. hob elevated. needs attended. no distress noted. will continue to monitor.
--- NOTE | 2019-03-20 19:05 | NUR ---
m/s resin painter: notes report given to sam (rn) for continuity of care.
--- NOTE | 2019-03-20 19:45 | NUR ---
MS RN OPENING NOTES RECEIVED PATIENT FROM MORNING SHIFT. ALERT AND ORIENTED X 3 VERBALLY RESPONSIVE AND ABLE TO FOLLOW DIRECTIONS. BREATHING REGULAR AND UNLABORED ON ROOM AIR. LEFT FOREARM G22 IV LINE INTACT AND PATENT, FLUSHING WELL WITH NO BLEEDING OR S/S OF INFILTRATION NOTED. BODY ASSESSMENT DONE, SEEN WITH DRY SCABS ON THE HEAD, BUE BRUISES, LEFT GROIN AND SACRAL REDNESS, BLE REDNESS AND SCALY SKIN. ALSO OBSERVED WITH RIGHT LOWER POSTERIOR LEG AND LEFT FOOT BIG TOE OPEN WOUNDS. NO REPORTS OF PAIN/DISCOMFORT OF THE TIME. BED LOW AND LOCKED ON SEMI FOWLERS POSITION. CALL LIGHT IN REACH. WILL CONTINUE TO MONITOR.
[2019-03-20 20:43] VITALS: BP 102/69
[2019-03-20 21:00] VITALS: BP 102/69
[2019-03-20] MEDS: CEFTRIAXONE 1 G in IV D5W 50 ML IV SCH (21:04)
--- NOTE | 2019-03-21 06:20 | NUR ---
MS RN CLOSING NOTES PATIENT IN BED ALERT AND ORIENTED X 3. VERBALLY RESPONSIVE AND ABLE TO FOLLOW DIRECTIONS. BREATHING REGULAR AND UNLABORED ON ROOM AIR. LEFT FOREARM G22 IV LINE INTACT AND FLUSHING WELL. ON-GOING WOUND TREATMENTS PROVIDED. NO REPORTS OF PAIN/DISCOMFORT THE WHOLE SHIFT. ON IV ATB FOR BLE CELLULITIS WITH NO DRUG ADVERSE REACTIONS OBSERVED. URINE OUTPUT 880cc. BED LOW AND LOCKED ON SEMI FOWLERS POSITION. CALL LIGHT IN REACH. WILL ENDORSE TO MORNING SHIFT FOR MERISSA.
--- NOTE | 2019-03-21 07:25 | NUR ---
MS/RN OPENING NOTES RECEIVED PATIENT IN BED SLEEPING COMFORTABLY. EASILY AROUSABLE. PATIENT IS ALERT AND ORIENTED X3. ABLE TO MAKE NEEDS KNOWN. NO PAIN OR ACUTE DISTRESS AT THIS TIME. RESPIRATION EVEN AND UNLABORED. SKIN IS DRY WARM TO TOUCH. PATIENT NOTED WITH LEFT FOREARM G22 IV LINE INTACT AND PATENT, FLUSHING WELL WITH NO BLEEDING OR S/S OF INFILTRATION NOTED. ALL NEEDS ANTICIPATED. CALL LIGHT WITHIN REACHED. BED LOCKED AND IN LOWEST POSITION. SAFETY MAINTAINED. REPOSITIONED Q2HRS. WILL CONTINUE TO MONITOR CLOSELY.
[2019-03-21 07:50] LABS: CALCIUM, SERUM 9.3 mg/dL (8.5-10.1); POTASSIUM 3.3 mmol/L (3.5-5.1)
[2019-03-21] MEDS: METOLAZONE 2.5 MG TABLET PO SCH (08:44)
[2019-03-21] MEDS: ATORVASTATIN 10 MG TABLET PO SCH (08:44)
[2019-03-21] MEDS: predniSONE 20 MG TABLET PO SCH (08:44)
[2019-03-21] MEDS: PREGABALIN 25 MG CAPSULE PO SCH ×3 (08:44→17:04)
[2019-03-21] MEDS: ASPIRIN 81 MG TAB.CHEW PO SCH (08:44)
[2019-03-21] MEDS: FUROSEMIDE 40 MG/4 ML VIAL IV SCH (08:44)
[2019-03-21] MEDS: CLOTRIMAZOLE 1% 15 GM TUBE TP SCH ×2 (08:45→17:05)
[2019-03-21] MEDS: NEOMY SULF/BACITRAC ZN/POLY 15 GM TUBE TP SCH ×2 (08:45→17:05)
[2019-03-21] MEDS: METOPROLOL SUCCINATE 25 MG TAB.SR.24H PO SCH (08:45)
[2019-03-21] MEDS: SILVER SULFADIAZINE 50 GM JAR TP SCH (08:46)
[2019-03-21 08:48] VITALS: BP 133/82
[2019-03-21] MEDS ORDERED: POTASSIUM CHLORIDE 20 MEQ TAB.PRT.SR PO SCH (10:30)
[2019-03-21 16:37] VITALS: BP 120/77
[2019-03-21] MEDS: FINASTERIDE (5 MG) 5 MG TABLET PO SCH (17:04)
[2019-03-21] MEDS: DILTIAZEM HCL CD 180 MG PO SCH (17:04)
[2019-03-21] MEDS ORDERED: DOXY100C2 PO (18:02)
[2019-03-21] MEDS ORDERED: PRED5TAB48 PO (18:18)
[2019-03-21] MEDS ORDERED: PRED20TA PO (18:18)
--- NOTE | 2019-03-21 18:54 | NUR ---
MS/RN CLOSING NOTES PATIENT CONTINUES TO REMAIN IN STABLE CONDITION THROUGHOUT THE SHIFT. PROVIDED COMFORT AND SAFETY. PATIENT IS GOING TO BE DISCHARGED TO [facility]. ALL DISCHARGE PAPERS WAS SIGNED AND WILL BE GIVEN UPON DISCHARGE. CARD LACER JACQUARD TIME WILL BE AROUND 8PM. SKIN ASSESSMENT DONE AND PHOTOS WAS TAKEN AND WAS PLACED IN THE CHART. IV ACCESS WAS REMOVED WELL. ALL NEEDS ANTICIPATED. CALL LIGHT WITHIN REACHED. BED LOCKED AND IN LOWEST POSITION. SAFETY MAINTAINED. WILL CONTINUE TO MONITOR CLOSELY. ENDORSED TO PM NURSE FOR MERISSA.
--- NOTE | 2019-03-21 19:30 | NUR ---
MS RN OPENING NOTES RECEIVED PATIENT FROM MORNING SHIFT. ALERT AND ORIENTED X 3 VERBALLY RESPONSIVE AND ABLE TO FOLLOW DIRECTIONS. BREATHING REGULAR AND UNLABORED ON ROOM AIR. NO IV ACCESS. BODY ASSESSMENT DONE, SEEN WITH THE SAME SKIN ISSUES. NO REPORTS OF PAIN/DISCOMFORT OF THE TIME. ADVISED ON DISCHARGE TO [facility]. BED LOW AND LOCKED ON SEMI FOWLERS POSITION. CALL LIGHT IN REACH. WILL CONTINUE TO MONITOR.
[2019-03-21 20:00] VITALS: BP 111/69
--- NOTE | 2019-03-21 21:00 | NUR ---
MS RN NOTES [facility] CAME TO PICK-UP PATIENT FOR TRANSFER TO [facility]. PATIENT REFUSED TO BE TRANSFERRED, PER HIM HE'S ONLY GOING TO GO IF HE'S GOING HOME. INFORMED THE PATIENT THAT PER EX- DANITZA, SHE'S UNABLE TO PROVIDE FOR HIS CARE ANYMORE AND CHOSE A LONG-TERM FACILITY NEAR THEIR AREA. CALLED AND SPOKE TO EX- DANITZA INFORMING HER OF WHAT'S CURRENTLY HAPPENING LET HER SPEAK WITH THE PATIENT BUT STILL REFUSED TO GO WITH THE AMBULANCE FOR DISCHARGE. MANAGER SIX SIGMA FRED NOTIFIED. CALLED PATIENT'S DAUGHTER KRYSTLE, VERBALIZED THAT IT WOULD BE BETTER IF HE'S IN A SNF ALSO LET HER SPEAK WITH THE PATIENT BUT STILL REFUSED TO LISTEN TO HER TOO. PER THE PATIENT HIS DAUGHTER WON'T BE ABLE TO PICK HIM UP TO GO HOME AND INSISTED THAT HE'S JUST GOING TO CALL [facility] FOR HIS RIDE. CHARGE NURSE AND INCOMING INSPECTOR SPOKE WITH THE PATIENT TO PERSUADE HIM TO GO TO SNF OR IF NOT STAY FOR THE NIGHT AND LET THE HOSPITALIST SEE HIM TOMORROW. AGAIN PATIENT REFUSED TELLING THAT WE'RE HOLDING HIM AGAINST HIS WILL AND THAT HE KNOWS HIS RIGHTS. REPEATEDLY EXPLAINING TO HIM THAT WE'RE CONCERN OF HIS SAFETY AND FOR CONTINUITY OF HIS MEDICAL MANAGEMENT. PATIENT REFUSED TO LISTEN AND SAID HE'S GOING AGAINST [facility]ICAL [facility] AND WILL FIND A WAY TO GO HOME.
[2019-03-21] MEDS: CEFTRIAXONE 1 G in IV D5W 50 ML IV SCH (21:30)
[2019-03-21 22:00] VITALS: BP 111/69
--- NOTE | 2019-03-21 22:00 | NUR ---
MS RN NOTES PATIENT PUT ON HIS CLOTHES AND GATHER ALL HIS BELONGINGS WITH HIS WALKER AND CANE, SAID THAT HE'S GOING HOME NOW. CALLED DIDIER IBARRA AND SAID THAT SHE'S GOING TO SEE THE PATIENT. CALLED SECURITY PATIENT TRIES TO GO OUT IN FRONT OF THE ELEVATOR. DIDIER IBARRA CAME AND SPOKE WITH THE PATIENT TELLING TO LET US TRANSFER HIM HOME WITH THE AMBULANCE PATIENT AGREES BUT STILL TRIES TO GO OUT WITH THE ELEVATOR. SECURITIES GUARD THE ELEVATOR WHILE CHARGE NURSE CALL FOR AN AMBULANCE. PER [facility] THE EARLIEST AVAILABLE TIME WAS 3AM. CALLED EX- DANITZA LET HER SPEAK WITH THE PATIENT AGAIN AND ABLE TO LISTEN TO HER TO STAY FOR THE NIGHT AND THAT SHE'S GOING TO PICK HIM UP TOMORROW AFTERNOON. DIDIER IBARRA WROTE THE DRUG PRESCRIPTION, PLACED ON PATIENTS DISCHARGE PACKET. ASSISTED PATIENT BACK TO BED. WILL CONTINUE TO MONITOR.
--- NOTE | 2019-03-22 06:20 | NUR ---
MS RN CLOSING NOTES PATIENT IN BED ALERT AND ORIENTED X 3. VERBALLY RESPONSIVE AND ABLE TO FOLLOW DIRECTIONS. BREATHING REGULAR AND UNLABORED ON ROOM AIR. NO IV ACCESS. ON-GOING WOUND TREATMENTS PROVIDED. NO REPORTS OF PAIN/DISCOMFORT THE WHOLE SHIFT. URINE OUTPUT 600cc. BED LOW AND LOCKED ON SEMI FOWLERS POSITION. CALL LIGHT IN REACH. WILL ENDORSE TO MORNING SHIFT FOR MERISSA.
--- NOTE | 2019-03-22 07:25 | NUR ---
MS RN OPENING NOTES RECEIVED PATIENT IN BED ASLEEP. AROUSABLE TO VERBAL AND TACTILE STIMULI. HOB ELEVATED. NO SOB. DENIES ANY C/O PAIN NOR DISCOMFORT. NO IV ACCESS. AMBULATORY WITH STEADY GAIT. BED IN LOWEST POSITION, LOCKED. BED ALARM ON. BED SIDERAILS UP X2. CALL LIGHT WITHIN REACH.
[2019-03-22 08:00] VITALS: BP 115/75
[2019-03-22 08:01] LABS: CALCIUM, SERUM 9.4 mg/dL (8.5-10.1)
[2019-03-22 08:10] VITALS: BP 115/75
[2019-03-22] MEDS: METOLAZONE 2.5 MG TABLET PO SCH (09:35)
[2019-03-22 09:37] VITALS: BP 115/75
[2019-03-22] MEDS: PREGABALIN 25 MG CAPSULE PO SCH ×2 (09:37→12:10)
[2019-03-22] MEDS: ATORVASTATIN 10 MG TABLET PO SCH (09:37)
[2019-03-22] MEDS: METOPROLOL SUCCINATE 25 MG TAB.SR.24H PO SCH (09:37)
[2019-03-22] MEDS: ASPIRIN 81 MG TAB.CHEW PO SCH (09:37)
[2019-03-22] MEDS: predniSONE 20 MG TABLET PO SCH (09:38)
[2019-03-22] MEDS: CLOTRIMAZOLE 1% 15 GM TUBE TP SCH (09:39)
[2019-03-22] MEDS: SILVER SULFADIAZINE 50 GM JAR TP SCH (09:39)
[2019-03-22] MEDS: NEOMY SULF/BACITRAC ZN/POLY 15 GM TUBE TP SCH (09:39)
[2019-03-22] MEDS ORDERED: FUROSEMIDE 40 MG TABLET PO SCH (12:00)
--- NOTE | 2019-03-22 15:30 | NUR ---
MS RN CLOSING/DISCHARGE NOTES PATIENT FOR DISCHARGE, PICKED UP BY EX . ALERT AND ORIENTED X3. DISCHARGE INSTRUCTIONS AND PACKET GIVEN TO PATIENT. ALL BELONGINGS ACCOUNTED FOR. NO SOB. DENIES ANY C/O PAIN NOR DIS COMFORT AT THIS TIME. PRESCRIPTION GIVEN TO PATIENT. LEFT IN STABLE CONDITION.
== END 2019-03-22 15:23 | disposition home or self-care (01) | DRG 602 ==
LOC: ER 17:12 → MED 20:17
PROVIDERS: ADMIT Internal Medicine; ATTEND Hospitalist
DX: L03.115 Cellulitis of right lower limb (principal); G93.41 Metabolic encephalopathy; J96.01 Acute respiratory failure with hypoxia; I50.33 Acute on chronic diastolic (congestive) heart failure; E44.1 Mild protein-calorie malnutrition; D68.59 Other primary thrombophilia; J98.11 Atelectasis; I11.0 Hypertensive heart disease with heart failure; L03.116 Cellulitis of left lower limb; R62.7 Adult failure to thrive; L97.519 Non-pressure chronic ulcer of other part of right foot with unspecified severity; E11.40 Type 2 diabetes mellitus with diabetic neuropathy, unspecified; I25.10 Atherosclerotic heart disease of native coronary artery without angina pectoris; E11.621 Type 2 diabetes mellitus with foot ulcer; E87.6 Hypokalemia; F03.90 Unspecified dementia, unspecified severity, without behavioral disturbance, psychotic disturbance, mood disturbance, and anxiety; I35.0 Nonrheumatic aortic (valve) stenosis; I70.0 Atherosclerosis of aorta; Z87.01 Personal history of pneumonia (recurrent); Z91.81 History of falling; Z82.49 Family history of ischemic heart disease and other diseases of the circulatory system; Z87.891 Personal history of nicotine dependence; Z83.3 Family history of diabetes mellitus; Z79.899 Other long term (current) drug therapy; Z79.82 Long term (current) use of aspirin; N40.0 Benign prostatic hyperplasia without lower urinary tract symptoms; J44.9 Chronic obstructive pulmonary disease, unspecified; I87.2 Venous insufficiency (chronic) (peripheral); I87.8 Other specified disorders of veins; L30.4 Erythema intertrigo; L21.9 Seborrheic dermatitis, unspecified; L85.3 Xerosis cutis; M25.512 Pain in left shoulder; W18.30XA Fall on same level, unspecified, initial encounter; Y92.9 Unspecified place or not applicable; G89.29 Other chronic pain; Z98.890 Other specified postprocedural states; I48.0 Paroxysmal atrial fibrillation
CPT/HCPCS: 36415; 36600; 70450-TC; 71045-TC; 73030-TC; 80048-TC; 80053-TC; 80061-TC; 80076-TC; 80202-TC; 81000-TC; 82803-TC; 83605-TC; 83735-TC; 83880; 84100-TC; 84484-TC; 85025-TC; 87040-TC; 87081-TC; 87086-TC; 93307-TC; 97110-TC; 97116-TC; 97530-TC; A6403; G0378; J0696; J1940; J3370; J3475; J7030; J7060

== ENCOUNTER 2019-03-30 07:32 | Inpatient (IN) | payer MEDICARE ==
[~2019-03-30] VITALS: Ht 170.2 cm; Wt 89.4 kg
[~2019-03-30 07:32] MED LIST changes: +DOXY100C2 PO; -METO5TAB7 PO; +PRED5TAB48 PO; -TRAZ-214 PO; +TRAZ-257 PO
--- NOTE | 2019-03-30 07:32 | NUR ---
BIB RA 878,EX- CALLED BECAUSE HE COULD'T GET UP FROM THE FLOOR,ADMITTED TO EMS THAT HE COLD'T REMEMBER WHAT HAPPENED, TO ER BED 9, HOOKED TO PROTECTION OFFICER, CHANGED TO HOSP GOWN, PATIENT AO x 1, NOTED W SHAKING, PROVIDED W WARM BLANKET, DR PERSAUD AT BEDSIDE FOR EVAL.
[2019-03-30] MEDS ORDERED: IV NS 0.9% 500 ML BAG IV ONE (08:00)
[2019-03-30 08:07] LABS: BASOPHILS # (AUTO) 0.1 /CMM (0.0-0.2); BASOPHILS % (AUTO) 0.3 % (0.0-2.0); EOSINOPHILS % (AUTO) 0.3 % (0.0-6.0); HEMATOCRIT 42 % (39-51); HEMOGLOBIN 13.6 g/dL (13.5-17.5); LYMPHOCYTES # (AUTO) 0.8 /CMM (0.8-4.8); LYMPHOCYTES % (AUTO) 3.9 % (20.0-44.0); MEAN CORPUSCULAR HGB CONC 33 g/dl (31.0-36.0); MEAN CORPUSCULAR VOLUME 86 fL (80-96); MONOCYTES # (AUTO) 1.2 /CMM (0.1-1.30); MONOCYTES % (AUTO) 5.9 % (2.0-12.0); NEUTROPHILS # (AUTO) 18.4 /CMM (1.8-8.9); NEUTROPHILS % (AUTO) 89.6 % (43.0-81.0); PLATELET COUNT (AUTO) 176 /CMM (150-450); RED BLOOD CELL COUNT(AUTO) 4.85 MIL/uL (4.5-6.0); WHITE BLOOD COUNT (AUTO) 20.5 K/uL (4.3-11.0)
--- NOTE | 2019-03-30 08:08 | NUR ---
WHEELED OUT VIA [facility] FOR CT SCAN
[2019-03-30 08:14] LABS: CALCIUM, SERUM 9.1 mg/dL (8.5-10.1); CARBON DIOXIDE 33 mmol/L (21-32); CHLORIDE 107 mmol/L (98-107); CREATININE 1.9 mg/dL (0.6-1.3); GLUCOSE 145 mg/dL (74-106); POTASSIUM 4.6 mmol/L (3.5-5.1); SODIUM SERUM 145 mmol/L (136-145); UREA NITROGEN, BLOOD 44 mg/dL (7-18)
--- NOTE | 2019-03-30 09:18 | NUR ---
PAGED [facility].
[2019-03-30] MEDS ORDERED: TAMS-12 PO (09:21)
[2019-03-30] MEDS ORDERED: DUTA0.5C15 PO (09:21)
[2019-03-30] MEDS ORDERED: TIZA4TAB5 PO (09:21)
--- NOTE | 2019-03-30 09:27 | NUR ---
CALLED NURSING SUP FOR TELE BED.
--- NOTE | 2019-03-30 09:50 | NUR ---
DR ROSENTHAL AT BEDSIDE
[2019-03-30 10:29] LABS: ABG BASE EXCESS 1.2 mmol/L; ABG OXYGEN SATURATION 98.2 % (92.0-98.5); ABG PCO2 36.7 mmHg (35.0-45.0); ABG PH 7.451 (7.350-7.450); ABG PO2 134.7 mmHg (75.0-100.0); AaDO2 137.2 mmHg; COHb 0.4 % (0.5-1.5); MetHb 0.6 % (0.0-1.5); O2Hb 97.2 % (94.0-97.0); SITE, ABG Left Radial; VENT MODE, BG SM
[2019-03-30] MEDS ORDERED: MAGNESIUM HYDROXIDE 30 ML UDC PO PRN (11:30)
[2019-03-30] MEDS ORDERED: ONDANSETRON HCL/PF 4 MG/2 ML VIAL IVP PRN (11:30)
[2019-03-30] MEDS ORDERED: Z GUARD REMEDY 2 OZ OINT TP PRN (11:30)
[2019-03-30] MEDS ORDERED: MAG HYDROX/AL HYDROX/SIMETH 30 ML UDC PO PRN (11:30)
--- NOTE | 2019-03-30 12:13 | NUR ---
NURSING SUP GAVE 306-2. GIVE A FEW MINUTES BEFORE SENDING PT UP.
--- NOTE | 2019-03-30 12:50 | NUR ---
REPORT GIVEN TO DHRUV OF TELE UNIT, NEEDS COUPLE OF MINUTES TO CLEAN ROOM FROM A DISCHARGE.
[2019-03-30] MEDS ORDERED: FEE PK DOSING 1 MIN EA MC ONE (12:56)
[2019-03-30] MEDS: CEFTRIAXONE 1 G in IV D5W 50 ML IV SCH (13:00)
[2019-03-30] MEDS: VANCOMYCIN 1 GM in IV D5W 250 ML IV SCH (14:00)
[2019-03-30] MEDS: IV NS 0.9% 1,000 ML IV PRN (15:01)
[2019-03-30 16:00] VITALS: BP 115/79
[2019-03-30] MEDS ORDERED: METOPROLOL SUCCINATE 25 MG TAB.SR.24H PO SCH ×2 (16:00→18:00)
[2019-03-30] MEDS: METOPROLOL SUCCINATE 50 MG TAB.SR.24H PO SCH (17:55)
[2019-03-30] MEDS: DILTIAZEM HCL CD 180 MG PO SCH (17:56)
[2019-03-30] MEDS: TIZANIDINE HCL 4 MG TABLET PO SCH (17:56)
[2019-03-30 20:00] VITALS: BP 100/57
[2019-03-31] VITALS: BP 100/74
[2019-03-31 04:00] VITALS: BP 108/69
--- NOTE | 2019-03-31 06:20 | NUR ---
TRANSITION ADVISOR NOTES AWAKE & RESPONSIVE. NOT IN ANY DISTRESS. NO SOB NOTED. ON TELE AFIB @ 75 WITH IVF INFUSING WELL. AM CARE DONE. MONITORED ACCORDINGLY. CALL LIGHT WITHIN REACH. BED IN LOWEST POSITION. SR UP X 3 WITH BED ALARM FOR SAFETY. WILL ENDORSE TO NEXT SHIFT.
--- NOTE | 2019-03-31 07:25 | NUR ---
SILO WORKER OPENING NOTES RECEIVED PT IN BED. AWAKE, A/OX 4. TOLERATING RA AT THIS TIME, WITH NO ACUTE RESPIRATORY DISTRESS NOTED. PT DENIES NEED OF SUPPLEMENTARY OXYGEN AT THIS TIME. PT DENIES ANY PAIN OR DISCOMFORT AT THIS TIME. ON TELEMONITORING, CONTROLLED AFIB 72. PT ALSO DENIES, CONCERNS AND QUESTIONS AT THE MOMENT. IVF NS AT 75ML/HR TO RIGHT WRIST G20, INTACT AND OPERATIONAL. PT KEPT COMFORTABLE. CALL LIGHT KEPT WITHIN REACH. PT'S BED IN LOWEST, LOCKED POSITION WITH SR X3. WILL CONTINUE PLAN OF CARE.
[2019-03-31 08:00] VITALS: BP 111/51
[2019-03-31] MEDS: TAMSULOSIN 0.4 MG CAP.SR.24H PO SCH (08:21)
[2019-03-31] MEDS: VANCOMYCIN 1 GM in IV D5W 250 ML IV SCH (08:21)
[2019-03-31] MEDS: ATORVASTATIN 40 MG TABLET PO SCH (08:22)
[2019-03-31 08:23] LABS: BASOPHILS % (AUTO) 0.1 % (0.0-2.0); HEMATOCRIT 36 % (39-51); HEMOGLOBIN 11.8 g/dL (13.5-17.5); LYMPHOCYTES # (AUTO) 0.9 /CMM (0.8-4.8); LYMPHOCYTES % (AUTO) 6.2 % (20.0-44.0); MEAN CORPUSCULAR HGB CONC 33 g/dl (31.0-36.0); MEAN CORPUSCULAR VOLUME 85 fL (80-96); MONOCYTES # (AUTO) 1.1 /CMM (0.1-1.30); MONOCYTES % (AUTO) 8.1 % (2.0-12.0); NEUTROPHILS # (AUTO) 11.9 /CMM (1.8-8.9); NEUTROPHILS % (AUTO) 84.6 % (43.0-81.0); PLATELET COUNT (AUTO) 135 /CMM (150-450); RED BLOOD CELL COUNT(AUTO) 4.23 MIL/uL (4.5-6.0)
[2019-03-31 08:35] LABS: CALCIUM, SERUM 8.4 mg/dL (8.5-10.1); PHOSPHORUS 2.2 mg/dL (2.5-4.9); POTASSIUM 3.9 mmol/L (3.5-5.1); THYROID STIMULATING HORMONE 0.466 uIU/mL (0.358-3.74)
[2019-03-31] MEDS ORDERED: ATORVASTATIN 10 MG TABLET PO SCH (09:00)
[2019-03-31] MEDS ORDERED: K PHOS NEUTRAL 250 MG TABLET PO ONE (12:30)
--- NOTE | 2019-03-31 12:30 | NUR ---
PATIENT SUPPORT REPRESENTATIVE NOTES PT REQUESTED FOR PHYSICAL THERAPY. CALLED AND LEFT A MESSAGE TO PT DEPT. AWAITING FOR RESPONSE.
[2019-03-31] MEDS: CEFTRIAXONE 1 G in IV D5W 50 ML IV SCH (12:34)
[2019-03-31] MEDS: IV NS 0.9% 1,000 ML IV PRN (13:30)
[2019-03-31] MEDS: ACETAMINOPHEN 325 MG TABLET PO PRN (14:57)
[2019-03-31 16:00] VITALS: BP 127/75
[2019-03-31] MEDS: METOPROLOL SUCCINATE 50 MG TAB.SR.24H PO SCH (16:45)
[2019-03-31] MEDS: TIZANIDINE HCL 4 MG TABLET PO SCH (17:28)
[2019-03-31] MEDS: DILTIAZEM HCL CD 180 MG PO SCH (17:29)
--- NOTE | 2019-03-31 18:39 | NUR ---
ORTHOPEDICALLY IMPAIRED TEACHER CLOSING NOTES PT REMAINS BED. AWAKE, A/OX 3, WITH EPISODE OF FORGETFULNESS AT TIMES. TOLERATING RA AT THIS TIME, WITH NO ACUTE RESPIRATORY DISTRESS NOTED. PT DENIES NEED OF SUPPLEMENTARY OXYGEN. PT DENIES ANY PAIN OR DISCOMFORT AT THIS TIME. ON TELEMONITORING, CONTROLLED AFIB 60. PT ALSO DENIES, CONCERNS AND QUESTIONS AT THE MOMENT. IVF NS AT 75ML/HR TO RIGHT WRIST G20, INTACT AND OPERATIONAL. PT KEPT COMFORTABLE. PT HAS BACK BRACE AT BEDSIDE, BEIGE IN COLOR. PT WAS WEARING IT FOR COUPLE OF HOURS IN THE MIDDLE OF THE DAY. ALL NEEDS AND CARE ATTENDED. CALL LIGHT KEPT WITHIN REACH. PT'S BED IN LOWEST, LOCKED POSITION WITH SR X3. WILL ENDORSE TO INCOMING NIGHT NURSE FOR MERISSA.
--- NOTE | 2019-03-31 19:00 | NUR ---
RN OPENING NOTES Received patient on bed, on O2 inhalation via NC, no SOB/respiratory distress noted. Patient denies any discomfort at this time. With IVF infusing well as ordered. Kept on bed clean, dry and comfortable. On fall and aspiration precautions. Call light within easy reach. Will continue to monitor accordingly.
[2019-03-31 20:00] VITALS: BP 91/58
[2019-04-01] VITALS: BP 100/67
[2019-04-01] MEDS: VANCOMYCIN 1 GM in IV D5W 250 ML IV SCH (02:13)
[2019-04-01] MEDS: IV NS 0.9% 1,000 ML IV PRN (02:20)
[2019-04-01 04:00] VITALS: BP 132/79
[2019-04-01] MEDS: ACETAMINOPHEN 325 MG TABLET PO PRN ×3 (05:31→20:46)
--- NOTE | 2019-04-01 06:44 | NUR ---
RN CLOSING NOTES Patient asleep on bed. On tele monitor with A-Fib noted. On O2 inhalation, no SOB/respiratory distress noted. No s/sx of discomfort noted at this time. All nursing needs attended, due meds given as ordered. Afebrile the whole shift. Kept on bed clean, dry and comfortable. Call light within easy reach. Endorsed.
--- NOTE | 2019-04-01 07:16 | NUR ---
MS RN NOTES PATIENT IN BED ALERT ORIENTED X 3. NO ACUTE DISTRESS NOTED. BREATHING UNLABORED. NO ASOB NOTED. IV ACCESS PATENT AND INTACT, NO REDNESS, NO SWELLING. SAFETY MEASURES IN PLACE. CALL LIGHT WITHIN REACH. WILL CONTINUE TO MONITOR ACCORDINGLY.
[2019-04-01 08:00] VITALS: BP 107/60
[2019-04-01 08:06] LABS: CALCIUM, SERUM 8.2 mg/dL (8.5-10.1); CREATININE 0.8 mg/dL (0.6-1.3); PHOSPHORUS 2.7 mg/dL (2.5-4.9); POTASSIUM 3.2 mmol/L (3.5-5.1)
[2019-04-01] MEDS: TAMSULOSIN 0.4 MG CAP.SR.24H PO SCH (08:18)
[2019-04-01] MEDS: ATORVASTATIN 40 MG TABLET PO SCH (08:18)
[2019-04-01] MEDS: POTASSIUM CHLORIDE 20 MEQ TAB.PRT.SR PO SCH ×2 (11:19→12:29)
[2019-04-01] MEDS: CEFTRIAXONE 1 G in IV D5W 50 ML IV SCH (12:32)
[2019-04-01 16:00] VITALS: BP 143/86
[2019-04-01] MEDS ORDERED: VANCOMYCIN 1 GM in IV D5W 250 ML IV SCH (16:00)
[2019-04-01] MEDS: METOPROLOL SUCCINATE 50 MG TAB.SR.24H PO SCH (16:57)
[2019-04-01 17:28] VITALS: BP 138/84
[2019-04-01] MEDS: TIZANIDINE HCL 4 MG TABLET PO SCH (17:28)
[2019-04-01] MEDS: DILTIAZEM HCL CD 180 MG PO SCH (17:28)
--- NOTE | 2019-04-01 19:00 | NUR ---
MS RN NOTES PATIENT IN BED ALERT ORIENTED X 3. NO ACUTE DISTRESS NOTED. BREATHING UNLABORED. NO SOB NOTED. IV ACCESS PATENT AND INTACT, NO REDNESS, NO SWELLING. NEEDS AQTTENDED AND ANTICIPATED. SAFETY MEASURES IN PLACE. CALL LIGHT WITHIN REACH. PATIENT FOR TRANSFER TO [facility] REPORT GIVEN TO LOIS CHOI, WILL ENDORSE TO NIGHT NURSE FOR CONTINUITY OF CARE AND TRANSFER.
--- NOTE | 2019-04-01 21:44 | NUR ---
INFANTRY WEAPONS OFFICER NOTES PATIENT DISCHARGED AT 2130. PICKED UP VIA [facility]. VITAL SIGNS STABLE. PAPER WORK COMPLETED BY STEPH BAEZA, AM SHIFT. PATIENT STABLE PRIOR TO DISCHARGE. ACCEPTED BY AMBULANCE.
== END 2019-04-01 21:30 | disposition short-term general hospital (02) | DRG 306 ==
LOC: ER 07:43 → TELE 12:47 → MED 04-01 12:28
PROVIDERS: ADMIT Internal Medicine; ATTEND Internal Medicine
DX: I35.0 Nonrheumatic aortic (valve) stenosis (principal); G93.41 Metabolic encephalopathy; J96.01 Acute respiratory failure with hypoxia; L03.115 Cellulitis of right lower limb; L03.116 Cellulitis of left lower limb; D68.59 Other primary thrombophilia; E44.1 Mild protein-calorie malnutrition; E87.0 Hyperosmolality and hypernatremia; I50.30 Unspecified diastolic (congestive) heart failure; N17.9 Acute kidney failure, unspecified; G90.8 Other disorders of autonomic nervous system; I87.2 Venous insufficiency (chronic) (peripheral); I48.0 Paroxysmal atrial fibrillation; E11.40 Type 2 diabetes mellitus with diabetic neuropathy, unspecified; Z79.01 Long term (current) use of anticoagulants; I25.10 Atherosclerotic heart disease of native coronary artery without angina pectoris; E11.51 Type 2 diabetes mellitus with diabetic peripheral angiopathy without gangrene; N40.0 Benign prostatic hyperplasia without lower urinary tract symptoms; G89.4 Chronic pain syndrome; F03.90 Unspecified dementia, unspecified severity, without behavioral disturbance, psychotic disturbance, mood disturbance, and anxiety; Z68.30 Body mass index [BMI] 30.0-30.9, adult; I11.0 Hypertensive heart disease with heart failure; E78.5 Hyperlipidemia, unspecified; D72.829 Elevated white blood cell count, unspecified; I25.2 Old myocardial infarction; Z87.891 Personal history of nicotine dependence; J44.9 Chronic obstructive pulmonary disease, unspecified
CPT/HCPCS: 36415; 36600; 70450-TC; 71045-TC; 80048-TC; 80061-TC; 80202-TC; 82803-TC; 83735-TC; 83880; 84100-TC; 84443-TC; 84484-TC; 85025-TC; 85652-TC; 85730-TC; 87081-TC; 93307-TC; G0378; J0696; J3370; J7030; J7060

== ENCOUNTER 2019-07-08 10:49 | Emergency (ER) | payer MEDICARE ==
[~2019-07-08] VITALS: Ht 182.9 cm; Wt 95.3 kg
[~2019-07-08 10:49] MED LIST changes: -ASPI-1169 PO; -DOXY100C2 PO; +DUTA0.5C16 PO; -OMEP40CA13 PO; -PRED20TA PO; -PRED5TAB48 PO; -PREG150C PO; +TAMS-12 PO; +TIZA4TAB5 PO; -TRAZ-257 PO
--- NOTE | 2019-07-08 10:55 | NUR ---
PT BIBRA FROM HOME TO ED BED 4 FOR HEAD TRAUMA AND L ELBOW ARASION S/P GLF. PT STATES WALKING USING A WALKER COMING FROM REHAB WHEN HE FEELS HIS LEGS BECAME "WOBBLY" AND FELL. PT DENIES CHEST PAIN OR SHORTNESS OF BREATH. PLACED ON MONITOR. AFEBRILE MERCHANDISE EXECUTION LEADER. AAOX4. AWAITNG MD REDD.
--- NOTE | 2019-07-08 11:20 | NUR ---
PT TO RADIOLOGY FOR HEAD CT SCAN VIA [facility].
--- NOTE | 2019-07-08 13:05 | NUR ---
CALLED WAITING IN THE CARE. PT CLEARED TO BE DISCHARGE.
--- NOTE | 2019-07-08 13:09 | NUR ---
PROVIDED W/ WOUND CARE. PT IS AAOX4. Patient discharged to home in stable condition. Written and verbal after care instructions given. Patient verbalizes understanding of instruction.
[2019-07-08 13:12] VITALS: BP 136/64
== END 2019-07-08 13:12 | disposition home or self-care (01) ==
LOC: ER 10:51
DX: S09.8XXA Other specified injuries of head, initial encounter (principal); G89.29 Other chronic pain; M54.9 Dorsalgia, unspecified; I10 Essential (primary) hypertension; I48.91 Unspecified atrial fibrillation; E11.9 Type 2 diabetes mellitus without complications; J44.9 Chronic obstructive pulmonary disease, unspecified; Z98.890 Other specified postprocedural states; Z79.899 Other long term (current) drug therapy; W18.39XA Other fall on same level, initial encounter; Y93.89 Activity, other specified; Y92.89 Other specified places as the place of occurrence of the external cause; Y99.8 Other external cause status
CPT/HCPCS: 70450-TC

== ENCOUNTER 2019-08-03 16:54 | Inpatient (IN) | payer MEDICARE, OTHER ==
[~2019-08-03] VITALS: Ht 182.9 cm; Wt 86.2 kg
--- NOTE | 2019-08-03 17:00 | NUR ---
pt bibra to er bed 04, pt is c/o ble pain and weakness for some time now. ble redness noted. per ems family unable to take care of patient. aaox3. stable vitals mining captain. gowned. pants removed provided new diaper. awaiting md dejesus.
--- NOTE | 2019-08-03 17:09 | NUR ---
dr hays at bedside for eval.
[2019-08-03 17:54] LABS: BASOPHILS % (AUTO) 0.6 % (0.0-2.0); EOSINOPHILS % (AUTO) 0.7 % (0.0-6.0); HEMATOCRIT 37 % (39-51); HEMOGLOBIN 12.5 g/dL (13.5-17.5); LYMPHOCYTES # (AUTO) 0.6 /CMM (0.8-4.8); LYMPHOCYTES % (AUTO) 8.6 % (20.0-44.0); MEAN CORPUSCULAR HGB CONC 34 g/dl (31.0-36.0); MEAN CORPUSCULAR VOLUME 84 fL (80-96); MONOCYTES # (AUTO) 0.8 /CMM (0.1-1.30); MONOCYTES % (AUTO) 11.1 % (2.0-12.0); NEUTROPHILS # (AUTO) 5.4 /CMM (1.8-8.9); PLATELET COUNT (AUTO) 131 /CMM (150-450); RED BLOOD CELL COUNT(AUTO) 4.42 MIL/uL (4.5-6.0); WHITE BLOOD COUNT (AUTO) 6.9 K/uL (4.3-11.0)
--- NOTE | 2019-08-03 17:59 | NUR ---
radiology at bedside for chest xray.
[2019-08-03] MEDS ORDERED: IV NS 0.9% 500 ML BAG IV ONE (18:00)
[2019-08-03 18:01] LABS: CALCIUM, SERUM 8.5 mg/dL (8.5-10.1); CARBON DIOXIDE 25 mmol/L (21-32); CHLORIDE 106 mmol/L (98-107); CREATININE 0.8 mg/dL (0.6-1.3); GLUCOSE 109 mg/dL (74-106); POTASSIUM 3.4 mmol/L (3.5-5.1); SODIUM SERUM 139 mmol/L (136-145); UREA NITROGEN, BLOOD 14 mg/dL (7-18)
[2019-08-03 18:08] LABS: ALANINE AMINOTRANSFERASE 32 U/L (12-78); ALBUMIN 3.1 g/dL (3.4-5.0); ALKALINE PHOSPHATASE 68 U/L (46-116); ASPARTATE AMINOTRANSFERASE 34 U/L (15-37); BILIRUBIN,DIRECT 0.3 mg/dL (0.0-0.2); BILIRUBIN,TOTAL 1.7 mg/dL (0.2-1.0); TOTAL PROTEIN, SERUM 5.9 g/dL (6.4-8.2)
--- NOTE | 2019-08-03 19:12 | NUR ---
report to night nurse tori for lacy.
--- NOTE | 2019-08-03 19:17 | NUR ---
REPORT RECEIVED FROM STEPH ANDINO FOR MERISSA
--- NOTE | 2019-08-03 19:34 | NUR ---
PT REFUSED TO PROVIDE URINE SAMPLE. MADE AWARE
--- NOTE | 2019-08-03 20:00 | NUR ---
MARY LOU KING TALKING TO PT DAUGHTER REGARDING PT.
[2019-08-03] MEDS ORDERED: FUROSEMIDE 40 MG/4 ML VIAL ONE (20:11)
--- NOTE | 2019-08-03 20:14 | NUR ---
CALLED NURSING SUP FOR TELE BED.
--- NOTE | 2019-08-03 20:20 | NUR ---
BED 309-2
[2019-08-03] MEDS ORDERED: FUROSEMIDE 40 MG/4 ML VIAL IV ONE (20:30)
--- NOTE | 2019-08-03 20:38 | NUR ---
ER TALKING TO DR. PEACOCK REGARDING PT ADMISSION.
--- NOTE | 2019-08-03 20:43 | NUR ---
REPORT GIVEN TO STEPH ABREU
--- NOTE | 2019-08-03 20:54 | NUR ---
PT TRANSFERED PER [facility]S PROTOCOL
[2019-08-03 21:00] VITALS: BP 159/110
--- NOTE | 2019-08-03 21:00 | NUR ---
PALLIATIVE NURSECREATIVE ARTS MUSIC THERAPIST NOTE RECEIVED PATIENT VIA GURNEY. TRANSFERRED TO BED. A/OX2-3. TOLERATING ROOM AIR. RESPIRATIONS ARE EVEN AND UNLABORED. NO S/S SOB NOTED. STATEWS PAIN IS 7/10 IN BILATERAL LOWER EXTREMITIES. EXPLAINED TO PATIENT I AM AWAITING ORDERS TO SEE WHAT TYPE OF MEDICATION THERE IS ORDERED. EXTERNAL TELE MONITOR READS CONTROLLED AFIB HR 80. IN NO APPARENT DISTRESS. IV ACCESS IN LEFT HAND #20 PATENT AND SALINE LOCKED. INATAL PHYSICAL ASSESSMENT COMPLETED AT THIS ITME. SKIN ASSESSMENT COMPLETED, PICTURES TAKEN AND PLACED IN CHART. LOCOMOTIVE REPAIRER DIESEL OBTAINED VITALS, AND COMPLETED BELONGINGS LIST. BED I SLOW AND LOCKED, HOB ELEVATED IN SEMI FOWLERS, SIDE RAILS UP X2. CALL LIGHT WITHIN REACH. WILL CONTINUE TO MONITOR.
[2019-08-03] MEDS ORDERED: MAGNESIUM HYDROXIDE 30 ML UDC PO PRN (22:30)
[2019-08-03] MEDS ORDERED: Z GUARD REMEDY 2 OZ OINT TP PRN (22:30)
[2019-08-03] MEDS ORDERED: ZOLPIDEM TARTRATE 5 MG TABLET PO PRN (22:30)
[2019-08-03] MEDS ORDERED: ACETAMINOPHEN 325 MG TABLET PO PRN (22:30)
[2019-08-03] MEDS ORDERED: ONDANSETRON HCL/PF 4 MG/2 ML VIAL IVP PRN (22:30)
[2019-08-03] MEDS ORDERED: MAG HYDROX/AL HYDROX/SIMETH 30 ML UDC PO PRN (22:30)
[2019-08-03] MEDS: HYDROCODONE/APAP 5/325MG 1 EACH TABLET PO PRN (22:55)
--- NOTE | 2019-08-03 22:55 | NUR ---
ACCOUNT ASSISTANT NOTE ADMINISTERED PRN NORCO 5/325 FOR PAIN 7/10 IN BILATERAL LOWER EXTREMITIES. WILL CONTINUE TO MONITOR.
[2019-08-04] VITALS: BP 156/95
[2019-08-04 04:00] VITALS: BP 145/90
[2019-08-04] MEDS: HYDROCODONE/APAP 5/325MG 1 EACH TABLET PO PRN (05:06)
--- NOTE | 2019-08-04 05:07 | NUR ---
EXCEPTIONAL CHILDREN'S TEACHER NOTE ADMINISTERED PRN NORCO 5/325 FOR PAIN 7/10 IN BLE. WILL CONTINUE TO MONITOR.
--- NOTE | 2019-08-04 06:55 | NUR ---
AUTOMOTIVE SOFTWARE ENGINEER CLOSING NOTE PATIENT IN BED. A/OX2-3. REMAINS TOLERATING ROOM AIR. RESPIRATIONS ARE EVEN AND UNLABORED. NO SOB NOTED. PAIN WAS NOT MANAGED WITH NORCO PATIENT IS REQUESTING SOMETHING STRONGER. EXTERNAL TELE MONITOR READS CONTROLLED AFIB HR 80S. NO DISTRESS. IV ACCESS MAINTAINED IN LEFT HAND #20 PATENT AND SALINE LOCKED. BED IS SLOW AND LOCKED, HOB ELEVATED IN SEMI FOWLERS, SIDE RAILS UP X2. CALL LIGHT WITHIN REACH. WILL ENDORSE TO NEXT SHIFT
[2019-08-04 08:00] VITALS: BP 157/98
--- NOTE | 2019-08-04 08:00 | NUR ---
PRESS READER AM NOTES RECEIVED PATIENT A/OX2-3. TOLERATING ROOM AIR. RESPIRATIONS ARE EVEN AND UNLABORED. NO S/S SOB NOTED. ON TELE MONITOR READS CONTROLLED AFIB HR 80. IN NO APPARENT DISTRESS. IV ACCESS IN LEFT HAND #20 PATENT AND SALINE LOCKED. SEEN BY WOUND CONSULT AND NOTED RT POSTERIOR ANKLE SCAB .TOOK A PHOTO. BED IN SLOW AND LOCKED, HOB ELEVATED IN SEMI FOWLERS, SIDE RAILS UP X2. CALL LIGHT WITHIN REACH. WILL CONTINUE TO MONITOR.
[2019-08-04] MEDS ORDERED: HYDR-3980 PO (08:45)
[2019-08-04] MEDS ORDERED: MYRBETRIQ PO (08:45)
[2019-08-04] MEDS ORDERED: ESOM40CA PO (08:45)
[2019-08-04] MEDS ORDERED: FURO-144 PO (08:45)
[2019-08-04] MEDS ORDERED: PREG150C PO (08:45)
[2019-08-04] MEDS ORDERED: TADA5TAB2 PO (08:45)
[2019-08-04] MEDS ORDERED: ASCO-352 PO (08:45)
[2019-08-04] MEDS ORDERED: VITA400C19 PO (08:45)
[2019-08-04] MEDS ORDERED: SOLI10TA2 PO (08:45)
[2019-08-04] MEDS ORDERED: POTA20TA83 PO (08:45)
[2019-08-04] MEDS ORDERED: PRED20TA PO (08:45)
[2019-08-04] MEDS ORDERED: VITA1TAB56 PO (08:45)
[2019-08-04] MEDS ORDERED: METO2.5T2 PO (08:45)
[2019-08-04] MEDS ORDERED: CEFTRIAXONE 1GM BAG (ER ONLY) 1 GM/50 ML PIGGYBACK IV SCH (09:00)
[2019-08-04] MEDS ORDERED: FUROSEMIDE 40 MG/4 ML VIAL IV SCH (09:00)
[2019-08-04] MEDS: POTASSIUM CHLORIDE 20 MEQ TAB.PRT.SR PO SCH ×3 (09:19→11:33)
[2019-08-04] MEDS: ENOXAPARIN SODIUM 40 MG/0.4 ML DISP.SYRIN SQ SCH (09:19)
[2019-08-04] MEDS: CEFTRIAXONE 1 G in IV D5W 50 ML IV SCH (09:19)
--- NOTE | 2019-08-04 10:21 | NUR ---
WOUND CARE CONSULT: PT PRESENTS WITH REDNESS TO BILATERAL LOWER LEGS AND FEET WITH DRY ESCHAR TO RT POSTERIOR ANKLE AND DRY WOUNDS TO TOES, SACRAL REDNESS WITH DISCOLORATION TO BUTTOCKS AND DISCOLORATION TO UPPER EXTREMITIES, ALL [id number] ON ADMISSION. DR LITTLE AND DR FRANCISCO NOTIFIED OF SURGICAL/DPM CONSULT REQUESTS. RECOMMENDATIONS MADE FOR SKIN PROTECTION. DISCUSSED WITH NURSING STAFF. WILL SEE PRN. KING IN AGREEMENT WITH PLAN OF CARE. PT ON ESKDALE ISOFLEX LOW AIRLOSS BED. PT IS INCONTINENT. CURRENT VIVIEN SCORE IS 15. Addendum: 08/04/19 at 1025 by SYLVESTER BRYSON WNDNU Amended: Links added.
[2019-08-04 13:16] LABS: BASOPHILS % (AUTO) 0.1 % (0.0-2.0); CALCIUM, SERUM 8.4 mg/dL (8.5-10.1); CREATININE 0.8 mg/dL (0.6-1.3); EOSINOPHILS % (AUTO) 1.4 % (0.0-6.0); HEMATOCRIT 38 % (39-51); HEMOGLOBIN 12.7 g/dL (13.5-17.5); LYMPHOCYTES # (AUTO) 0.6 /CMM (0.8-4.8); LYMPHOCYTES % (AUTO) 9.5 % (20.0-44.0); MAGNESIUM 1.8 mg/dL (1.8-2.4); MEAN CORPUSCULAR HGB CONC 34 g/dl (31.0-36.0); MEAN CORPUSCULAR VOLUME 83 fL (80-96); MONOCYTES # (AUTO) 0.6 /CMM (0.1-1.30); MONOCYTES % (AUTO) 9.6 % (2.0-12.0); NEUTROPHILS # (AUTO) 4.6 /CMM (1.8-8.9); NEUTROPHILS % (AUTO) 79.4 % (43.0-81.0); PHOSPHORUS 3.3 mg/dL (2.5-4.9); PLATELET COUNT (AUTO) 143 /CMM (150-450); POTASSIUM 3.1 mmol/L (3.5-5.1); RED BLOOD CELL COUNT(AUTO) 4.58 MIL/uL (4.5-6.0); WHITE BLOOD COUNT (AUTO) 5.8 K/uL (4.3-11.0)
[2019-08-04 13:28] LABS: THYROID STIMULATING HORMONE 1.787 uIU/mL (0.358-3.74)
--- NOTE | 2019-08-04 14:15 | NUR ---
DISCHARGED PT HOME WITH STABLE V/S.REFUSED TO HAVE SKIN PHOTOS TAKEN BECAUSE SHE WAS IN A [place] AND EAG[place] TO GO HOME.WOUND DRESSING CHANGE DONE TO BLE.IV H/L TO RT WRIST AND ANGE MIDLINE REMOVED WITHOUT BLEEDING OR SWELLING NOTED ON THE SITE. DISCHARGE INSTRUCTIONS AND FOLLOW UP INSTRUCTIONS GIVEN.PT CALLED FOR ACCESS SERVICE FOR HER TRANSPORTATION. Addendum: 08/04/19 at 1510 by JONATHAN DIAZ RN PLS IGNORE ABOVE NOTES-DOCUMENTED ON THE WRONG PT
--- NOTE | 2019-08-04 15:14 | NUR ---
OROPHARYNGEAL COVID TESTING DONE AND SENT TO LAB
[2019-08-04 16:00] VITALS: BP 161/90
--- NOTE | 2019-08-04 16:40 | NUR ---
PT'S BP WAS HIGH 161/[address] STREETER TO DO MED RECON WELL AND DR STREETER IS AWARE.
--- NOTE | 2019-08-04 16:55 | NUR ---
PT IS RESTLESS AND CONFUSED,KEEPS CALLING FOR NURSE WANTING THE NURSE TO STAY WITH HIM ALL THE TIME.REALITY ORIENTATION GIVEN THAT WE CAN'T STAY WITH HIM ALL THE TIME EVEN IF ALL HIS NEEDS WERE ATTENDED,PT STILL KEEPS CALLING FOR A NURSE CONTINUOUSLY.AWAITING FOR MED RECON TO BE DONE,DR STREETER AWARE.
--- NOTE | 2019-08-04 18:31 | NUR ---
PT IS COMFORTABLY SLEEPING BUT AROUSABLE .STILL AWAITING FOR DR STREETER TO DO PT'S MED RECON INSPITE OF REMINDING HIM TO DO THE MED RECON. CALL LIGHT PLACED WITHIN REACH.
--- NOTE | 2019-08-04 19:35 | NUR ---
MS RN OPENING NOTES PATIENT SLEEPING IN BED. EASY TO AWAKEN. A/OX2. ON RA. NO S/S OF ACUTE RESPIRATORY DISTRESS OR C/O PAIN AT THIS TIME. IV PRESENT ON LEFT HAND, SIZE 20, INTACT & PATENT, HEP LOCKED. CONTACT/DROPLET PRECAUTIONS IN PLACE FOR R/O COVID BEFORE DISCHARGE TO SNF; PENDING RESULTS. SAFETY MEASURES IN PLACE AND PATIENT'S NEEDS MET. BED LOCKED, ALARM ON, SIDE RAILS X2, CALL LIGHT WITHIN REACH. WILL CONTINUE TO MONITOR.
[2019-08-04 20:00] VITALS: BP 160/94
[2019-08-04] MEDS: hydrALAZINE HCL 25 MG TABLET PO PRN (23:10)
[2019-08-05 00:33] VITALS: BP 156/97
[2019-08-05 06:32] LABS: BASOPHILS % (AUTO) 0.2 % (0.0-2.0); EOSINOPHILS % (AUTO) 2.1 % (0.0-6.0); HEMATOCRIT 38 % (39-51); HEMOGLOBIN 12.8 g/dL (13.5-17.5); LYMPHOCYTES # (AUTO) 0.7 /CMM (0.8-4.8); LYMPHOCYTES % (AUTO) 11.4 % (20.0-44.0); MEAN CORPUSCULAR HGB CONC 34 g/dl (31.0-36.0); MEAN CORPUSCULAR VOLUME 83 fL (80-96); MONOCYTES # (AUTO) 0.7 /CMM (0.1-1.30); MONOCYTES % (AUTO) 11.9 % (2.0-12.0); NEUTROPHILS # (AUTO) 4.4 /CMM (1.8-8.9); NEUTROPHILS % (AUTO) 74.4 % (43.0-81.0); PLATELET COUNT (AUTO) 143 /CMM (150-450); RED BLOOD CELL COUNT(AUTO) 4.59 MIL/uL (4.5-6.0); WHITE BLOOD COUNT (AUTO) 5.9 K/uL (4.3-11.0)
[2019-08-05 06:50] LABS: ALBUMIN 3.1 g/dL (3.4-5.0); BILIRUBIN,TOTAL 1.2 mg/dL (0.2-1.0); CALCIUM, SERUM 8.7 mg/dL (8.5-10.1); CREATININE 0.7 mg/dL (0.6-1.3); PHOSPHORUS 3.2 mg/dL (2.5-4.9); POTASSIUM 3.5 mmol/L (3.5-5.1); TOTAL PROTEIN, SERUM 6.2 g/dL (6.4-8.2)
--- NOTE | 2019-08-05 07:10 | NUR ---
MS RN CLOSING NOTES PATIENT SLEEPING IN BED. EASY TO AWAKEN. A/OX2. ON RA. NO S/S OF ACUTE RESPIRATORY DISTRESS OR C/O PAIN AT THIS TIME. IV PRESENT ON LEFT HAND, SIZE 20, INTACT & PATENT, HEP LOCKED. SAFETY MEASURES IN PLACE AND PATIENT'S NEEDS MET. BED LOCKED, ALARM ON, SIDE RAILS X2, CALL LIGHT WITHIN REACH. WILL ENDORSE TO DAY SHIFT NURSE PLAN OF CARE.
[2019-08-05 08:00] VITALS: BP 153/100
[2019-08-05] MEDS: CEFTRIAXONE 1 G in IV D5W 50 ML IV SCH (09:16)
[2019-08-05] MEDS: ENOXAPARIN SODIUM 40 MG/0.4 ML DISP.SYRIN SQ SCH (09:17)
[2019-08-05] MEDS: hydrALAZINE HCL 25 MG TABLET PO PRN ×2 (11:03→11:08)
[2019-08-05] MEDS: POTASSIUM CHLORIDE 20 MEQ TAB.PRT.SR PO SCH ×2 (11:04→12:18)
[2019-08-05] MEDS: predniSONE 20 MG TABLET PO SCH (11:07)
[2019-08-05] MEDS: ATORVASTATIN 10 MG TABLET PO SCH (11:08)
[2019-08-05] MEDS: VITAMIN E 400 UNIT CAPSULE PO SCH (11:08)
[2019-08-05] MEDS: DUTASTERIDE (0.5 MG) 0.5 MG CAPSULE PO SCH (12:20)
[2019-08-05] MEDS: PREGABALIN 25 MG CAPSULE PO SCH ×2 (12:22→16:51)
[2019-08-05 16:00] VITALS: BP 162/96
[2019-08-05] MEDS ORDERED: hydrALAZINE HCL 50 MG TABLET PO ONE (16:00)
[2019-08-05] MEDS ORDERED: Medication Not On Formulary EA ([Myrbetriq] 25 MG) PO SCH (18:00)
[2019-08-05] MEDS: TAMSULOSIN 0.4 MG CAP.SR.24H PO SCH (18:11)
[2019-08-05] MEDS: DILTIAZEM HCL CD 180 MG PO SCH (18:11)
--- NOTE | 2019-08-05 18:54 | NUR ---
PATIENT RESTING IN BED. EASY TO AWAKEN. A/OX2, CONFUSED .ON RA SATURATING WELL. NO S/S OF ACUTE RESPIRATORY DISTRESS OR C/O PAIN AT THIS TIME. IV PRESENT ON LEFT HAND, SIZE 20, INTACT & PATENT, H/L. SAFETY MEASURES IN PLACE AND PATIENT'S NEEDS MET. BED LOCKED, ALARM ON, SIDE RAILS X2, CALL LIGHT WITHIN REACH.ALL NEEDS ATTENDED. WILL ENDORSE TO DAY SHIFT NURSE PLAN OF CARE.
[2019-08-05 20:00] VITALS: BP_SYST 130; BP_SYST 150; BP_DIAS 99
--- NOTE | 2019-08-05 20:00 | NUR ---
RN NOTES RECEIVED PATIENT IN BED, ALERT, AROUSEABLE BY VOICE AND TOUCH, ANSWERS TO SIMPLE QUESTIONS, ROOM AIR, DENIES PAIN AT THIS TIME. CONTINUE DROPLET ISOLATION, R/O COVID
--- NOTE | 2019-08-06 06:29 | NUR ---
RN NOTES ALERT AND ORIENTED X2, ROOM AIR, VS STABLE, NO COMPLAIN OF PAIN, INCONTINENT OF BOWEL AND BLADDER, NO SIGNIFICANT EVENT DURING SHIFT, AWAITING COVID RESULT
[2019-08-06] MEDS: ACETAMINOPHEN 325 MG TABLET PO PRN ×2 (06:57→21:44)
[2019-08-06 08:00] VITALS: BP 135/79
[2019-08-06] MEDS: CEFTRIAXONE 1 G in IV D5W 50 ML IV SCH (09:07)
[2019-08-06] MEDS: VITAMIN E 400 UNIT CAPSULE PO SCH (09:07)
[2019-08-06] MEDS: ASCORBIC ACID 500 MG TABLET PO SCH (09:07)
[2019-08-06] MEDS: VITAMIN B COMP W-C 1 TAB TABLET PO SCH (09:07)
[2019-08-06] MEDS: ATORVASTATIN 10 MG TABLET PO SCH (09:07)
[2019-08-06] MEDS: PREGABALIN 25 MG CAPSULE PO SCH ×3 (09:08→16:13)
[2019-08-06] MEDS: predniSONE 20 MG TABLET PO SCH (09:08)
[2019-08-06] MEDS: METOPROLOL SUCCINATE 50 MG TAB.SR.24H PO SCH (09:08)
[2019-08-06] MEDS: DUTASTERIDE (0.5 MG) 0.5 MG CAPSULE PO SCH (09:12)
[2019-08-06] MEDS: ENOXAPARIN SODIUM 40 MG/0.4 ML DISP.SYRIN SQ SCH (09:15)
[2019-08-06 10:50] LABS: BASOPHILS % (AUTO) 0.3 % (0.0-2.0); EOSINOPHILS % (AUTO) 1.6 % (0.0-6.0); HEMATOCRIT 39 % (39-51); HEMOGLOBIN 12.9 g/dL (13.5-17.5); LYMPHOCYTES # (AUTO) 0.7 /CMM (0.8-4.8); LYMPHOCYTES % (AUTO) 11.5 % (20.0-44.0); MEAN CORPUSCULAR HGB CONC 33 g/dl (31.0-36.0); MEAN CORPUSCULAR VOLUME 83 fL (80-96); MONOCYTES # (AUTO) 0.6 /CMM (0.1-1.30); NEUTROPHILS # (AUTO) 4.4 /CMM (1.8-8.9); NEUTROPHILS % (AUTO) 76.6 % (43.0-81.0); PLATELET COUNT (AUTO) 172 /CMM (150-450); RED BLOOD CELL COUNT(AUTO) 4.69 MIL/uL (4.5-6.0); WHITE BLOOD COUNT (AUTO) 5.8 K/uL (4.3-11.0)
[2019-08-06 11:05] LABS: ALBUMIN 3.1 g/dL (3.4-5.0); BILIRUBIN,TOTAL 0.7 mg/dL (0.2-1.0); CALCIUM, SERUM 8.4 mg/dL (8.5-10.1); CREATININE 0.9 mg/dL (0.6-1.3); MAGNESIUM 2.1 mg/dL (1.8-2.4); PHOSPHORUS 2.9 mg/dL (2.5-4.9); POTASSIUM 3.5 mmol/L (3.5-5.1); TOTAL PROTEIN, SERUM 6.3 g/dL (6.4-8.2)
[2019-08-06 12:47] LABS: THYROID STIMULATING HORMONE 1.52 uIU/mL (0.358-3.74)
[2019-08-06 16:00] VITALS: BP 148/79
[2019-08-06] MEDS: TAMSULOSIN 0.4 MG CAP.SR.24H PO SCH (16:14)
[2019-08-06] MEDS: DILTIAZEM HCL CD 180 MG PO SCH (17:06)
[2019-08-06] MEDS: PANTOPRAZOLE 40 MG TABLET.DR PO SCH (17:06)
--- NOTE | 2019-08-06 18:31 | NUR ---
PATIENT RESTING IN BED. EASY TO AWAKEN. A/OX2,FORGETFUL .ON RA SATURATING WELL. NO S/S OF ACUTE RESPIRATORY DISTRESS OR C/O PAIN AT THIS TIME. IV PRESENT ON LEFT HAND, SIZE 20, INTACT & PATENT, H/L. GOOD PO INTAKE. SAFETY MEASURES IN PLACE AND PATIENT'S NEEDS MET. BED LOCKED, ALARM ON, SIDE RAILS X2, CALL LIGHT WITHIN REACH.ALL NEEDS ATTENDED. WILL ENDORSE TO DAY SHIFT NURSE PLAN OF CAR
[2019-08-06 19:30] VITALS: BP 131/74
--- NOTE | 2019-08-06 19:45 | NUR ---
MS RN NOTES PATIENT IN BED, ALERT AND ORIENTED X 2. BREATHING EVEN AND UNLABORED ON ROOM AIR. SHOWS NO SIGNS OF ACUTE RESPIRATORY DISTRESS, NO ACUTE PAIN. IV ON L HAND 20G SL. SHOWS NO SIGNS OF INFILTRATION, NO REDNESS. SAFETY PRECAUTIONS IN PLACE. BED IN LOWEST POSITION, LOCKED, AND CALL LIGHT KEPT WITHIN REACH. WILL CONTINUE TO MONITOR.
[2019-08-06 20:00] VITALS: BP 131/74
--- NOTE | 2019-08-06 21:44 | NUR ---
MS RN NOTES PATIENT COMPLAINING OF PAIN ON LEG. GIVEN PRN TYLENOL. WILL CONTINUE TO MONITOR.
[2019-08-07] MEDS: GUAIFENESIN/CODEINE 10 ML UDC PO PRN ×2 (04:54→17:51)
--- NOTE | 2019-08-07 04:55 | NUR ---
MS RN NOTES PATIENT COMPLAINING OF COUGH. GIVEN PRN ROBITUSSIN AT 0455. WILL CONTINUE TO MONITOR.
--- NOTE | 2019-08-07 06:29 | NUR ---
MS RN NOTES PATIENT IN BED, ALERT AND ORIENTED X 2. BREATHING EVEN AND UNLABORED ON ROOM AIR. SHOWS NO SIGNS OF ACUTE RESPIRATORY DISTRESS, NO ACUTE PAIN. IV ON L HAND 20G SL. SHOWS NO SIGNS OF INFILTRATION, NO REDNESS. ALL DUE MEDICATIONS GIVEN. NEGATIVE FOR COVID. SAFETY PRECAUTIONS IN PLACE. BED IN LOWEST POSITION, LOCKED, AND CALL LIGHT KEPT WITHIN REACH. WILL ENDORSE TO ONCOMING NURSE.
--- NOTE | 2019-08-07 07:15 | NUR ---
MS RN NOTES RECEIVED PATIENT IN BED ASLEEP, AROUSABLE TO VERBAL AND TACTILE STIMULI. HOB ELEVATED. NO SOB. DENIES ANY C/O PAIN NOR DISCOMFIT AT THIS TIME. LEFT HAND IV ACCESS INTACT AND PATENT. BED IN LOWEST POSITION ,LOCKED. BED ALARM ON. CALL LIGHT WITHIN REACH.
[2019-08-07 08:00] VITALS: BP 135/73
[2019-08-07] MEDS: CEFTRIAXONE 1 G in IV D5W 50 ML IV SCH (09:14)
[2019-08-07] MEDS: METOPROLOL SUCCINATE 50 MG TAB.SR.24H PO SCH (09:14)
[2019-08-07] MEDS: ASCORBIC ACID 500 MG TABLET PO SCH (09:14)
[2019-08-07] MEDS: PREGABALIN 25 MG CAPSULE PO SCH ×3 (09:14→17:04)
[2019-08-07] MEDS: predniSONE 20 MG TABLET PO SCH (09:15)
[2019-08-07] MEDS: VITAMIN B COMP W-C 1 TAB TABLET PO SCH (09:15)
[2019-08-07] MEDS: ATORVASTATIN 10 MG TABLET PO SCH (09:15)
[2019-08-07] MEDS: VITAMIN E 400 UNIT CAPSULE PO SCH (09:15)
[2019-08-07] MEDS: ENOXAPARIN SODIUM 40 MG/0.4 ML DISP.SYRIN SQ SCH (09:20)
[2019-08-07] MEDS: DUTASTERIDE (0.5 MG) 0.5 MG CAPSULE PO SCH (09:20)
[2019-08-07] MEDS: ACETAMINOPHEN 325 MG TABLET PO PRN (12:32)
[2019-08-07] MEDS ORDERED: CEFT1VIA15 IV (12:55)
[2019-08-07] MEDS ORDERED: PRED20TA PO (12:57)
[2019-08-07 16:00] VITALS: BP 137/80
[2019-08-07] MEDS: TAMSULOSIN 0.4 MG CAP.SR.24H PO SCH (17:05)
[2019-08-07] MEDS: DILTIAZEM HCL CD 180 MG PO SCH (17:05)
[2019-08-07] MEDS: PANTOPRAZOLE 40 MG TABLET.DR PO SCH (17:05)
--- NOTE | 2019-08-07 19:30 | NUR ---
MS RN NOTES ALERT AND ORIENTED X4. HOB ELEVATED. NO S/S OF RESPIRATORY DISTRESS. DENIES ANY C/O PAIN NOR DISCOMFIT AT THIS TIME. PATIENT FOR DISCHARGE. DISCHARGE INSTRUCTIONS DISCUSSED WITH PATIENT AND REPORT GIVEN TO SNF RN AT [facility]. IV ACCESS REMOVED WITH CATHETER TIP INTACT. ALL BELONGINGS ACCOUNTED FOR. PATIENT AWARE OF DISCHARGE TO SNF AND AGREED. AWAITING FOR AMBULANCE PICK-UP, BED IN LOWEST POSITION ,LOCKED. BED ALARM ON. CALL LIGHT WITHIN REACH. IN NO APPARENT DISTRESS.
--- NOTE | 2019-08-07 19:56 | NUR ---
MS RN OPENING NOTES PATIENT RECEIVED RESTING IN BED A/O X 4. STABLE ON RA WITH BREATHING EVEN UNLABORED. NO SIGNS OF ACUTE DISTRESS NO COMPLAINTS OF PAIN OR DISCOMFORT. NO IV ACCESS. AWAITING D/C. SAFETY PRECAUTIONS IN PLACE WITH BED IN LOWEST POSITION, CALL LIGHT WITHIN REACH, BREAKS ON, SIDE RAILS UP. WILL CONTINUE TO MONITOR.
[2019-08-07 20:10] VITALS: BP 142/78
--- NOTE | 2019-08-07 20:10 | NUR ---
MS RN NOTES REPORT GIVEN TO LOCATED WITHIN [facility] TO STEPH DEE. AWAITING FOR TRANSPORTATION.
--- NOTE | 2019-08-07 22:16 | NUR ---
MS SALESPERSON HOSIERY NOTES PATIENT DISCHARGED TO [facility] ACCOMPANIED BY TRANSPORTERS VIA [facility] [place]. PATIENT LEFT IN STABLE CONDITION, NO SIGNS OF ACUTE DISTRESS. TYLENOL PRN GIVEN DUE TO MILD COMPLAINTS OF PAIN. STABLE ON RA. ALL BELONGINGS SIGNED FOR. DISCHARGE PAPERWORK GIVEN TO PATIENT. MEDICAL BAND REMOVED.
== END 2019-08-07 21:30 | DRG 291 ==
LOC: ER 16:57 → TELE 20:24 → MED 08-04 11:45
PROVIDERS: ADMIT Student in an Organized Health Care Education/Training Program; ATTEND Nurse Practitioner Acute Care
DX: I11.0 Hypertensive heart disease with heart failure (principal); G93.41 Metabolic encephalopathy; F11.20 Opioid dependence, uncomplicated; L03.116 Cellulitis of left lower limb; D68.59 Other primary thrombophilia; E44.1 Mild protein-calorie malnutrition; L97.929 Non-pressure chronic ulcer of unspecified part of left lower leg with unspecified severity; I87.332 Chronic venous hypertension (idiopathic) with ulcer and inflammation of left lower extremity; I87.8 Other specified disorders of veins; G89.4 Chronic pain syndrome; I25.10 Atherosclerotic heart disease of native coronary artery without angina pectoris; I48.0 Paroxysmal atrial fibrillation; I50.33 Acute on chronic diastolic (congestive) heart failure; E11.40 Type 2 diabetes mellitus with diabetic neuropathy, unspecified; I48.91 Unspecified atrial fibrillation; Z98.890 Other specified postprocedural states; Z79.899 Other long term (current) drug therapy; D69.6 Thrombocytopenia, unspecified; I87.2 Venous insufficiency (chronic) (peripheral); J44.9 Chronic obstructive pulmonary disease, unspecified; L97.529 Non-pressure chronic ulcer of other part of left foot with unspecified severity; Z95.2 Presence of prosthetic heart valve; Z83.3 Family history of diabetes mellitus; Z82.49 Family history of ischemic heart disease and other diseases of the circulatory system; N40.0 Benign prostatic hyperplasia without lower urinary tract symptoms; N28.1 Cyst of kidney, acquired; L85.3 Xerosis cutis; I70.0 Atherosclerosis of aorta; E87.6 Hypokalemia; E11.51 Type 2 diabetes mellitus with diabetic peripheral angiopathy without gangrene; E11.621 Type 2 diabetes mellitus with foot ulcer; D64.9 Anemia, unspecified; F03.90 Unspecified dementia, unspecified severity, without behavioral disturbance, psychotic disturbance, mood disturbance, and anxiety; I35.0 Nonrheumatic aortic (valve) stenosis; R62.7 Adult failure to thrive; L89.156 Pressure-induced deep tissue damage of sacral region; L53.9 Erythematous condition, unspecified
CPT/HCPCS: 36415; 71045-TC; 76700-TC; 80048-TC; 80053-TC; 80061-TC; 80076-TC; 83540-TC; 83735-TC; 83880; 84100-TC; 84439-TC; 84443-TC; 84484-TC; 85025-TC; 87081-TC; 93307-TC; 97110-TC; 97116-TC; 97530-TC; G0378; J0696; J1650; J1940; J7040; J7050; J7060; U0003-CS

== ENCOUNTER 2019-08-21 13:55 | Inpatient (IN) | payer MEDICARE, OTHER ==
[~2019-08-21] VITALS: Ht 170.2 cm; Wt 79.8 kg
[~2019-08-21 13:55] MED LIST changes: +ASCO-352 PO; +CEFT1VIA15 IV; +ESOM40CA PO; -FINA5TAB3 PO; +FURO-144 PO; +HYDR-3980 PO; +METO2.5T2 PO; +MYRBETRIQ PO; +POTA20TA83 PO; +PRED20TA PO; +PREG150C PO; +SOLI10TA2 PO; +TADA5TAB2 PO; -TIZA4TAB5 PO; +VITA1TAB56 PO; +VITA400C19 PO
--- NOTE | 2019-08-21 14:12 | NUR ---
CECILLE FROM HOME TO ER BED 6. AAOX4. NOT IN RESP DISTRESS, BREATHING EVEN AND UNLABORED. BROUGHT IN ON GURNEY. C/O PAIN ON THE BACK OF THE HEAD S/P GLF. PER PT, HE FELL FROM STANDING X 3 AND HIT THE BACK OF THE HEAD. NOTED SKING TEAR ON L ELBOW AND R HAND. AT [facility] FOR EVAL. AWAITING ORDERS
[2019-08-21 14:52] LABS: BASOPHILS # (AUTO) 0.1 /CMM (0.0-0.2); BASOPHILS % (AUTO) 0.5 % (0.0-2.0); EOSINOPHILS % (AUTO) 0.2 % (0.0-6.0); HEMATOCRIT 40 % (39-51); HEMOGLOBIN 13.2 g/dL (13.5-17.5); LYMPHOCYTES # (AUTO) 0.3 /CMM (0.8-4.8); LYMPHOCYTES % (AUTO) 2.8 % (20.0-44.0); MEAN CORPUSCULAR HGB CONC 33 g/dl (31.0-36.0); MEAN CORPUSCULAR VOLUME 84 fL (80-96); MONOCYTES # (AUTO) 0.9 /CMM (0.1-1.30); MONOCYTES % (AUTO) 6.8 % (2.0-12.0); NEUTROPHILS # (AUTO) 11.4 /CMM (1.8-8.9); NEUTROPHILS % (AUTO) 89.7 % (43.0-81.0); PLATELET COUNT (AUTO) 171 /CMM (150-450); RED BLOOD CELL COUNT(AUTO) 4.75 MIL/uL (4.5-6.0); WHITE BLOOD COUNT (AUTO) 12.7 K/uL (4.3-11.0)
--- NOTE | 2019-08-21 14:52 | NUR ---
us at bedside
[2019-08-21 14:57] LABS: CALCIUM, SERUM 8.8 mg/dL (8.5-10.1); CARBON DIOXIDE 29 mmol/L (21-32); CHLORIDE 100 mmol/L (98-107); CREATININE 1.5 mg/dL (0.6-1.3); GLUCOSE 137 mg/dL (74-106); POTASSIUM 4.2 mmol/L (3.5-5.1); SODIUM SERUM 137 mmol/L (136-145); UREA NITROGEN, BLOOD 48 mg/dL (7-18)
[2019-08-21 15:10] LABS: ALANINE AMINOTRANSFERASE 34 U/L (12-78); ALBUMIN 3.8 g/dL (3.4-5.0); ALKALINE PHOSPHATASE 70 U/L (46-116); ASPARTATE AMINOTRANSFERASE 45 U/L (15-37); B-TYPE NATRIURETIC PEPTIDE 908 PG/ML (0-125); BILIRUBIN,DIRECT 0.2 mg/dL (0.0-0.2); BILIRUBIN,TOTAL 0.9 mg/dL (0.2-1.0); TOTAL PROTEIN, SERUM 6.8 g/dL (6.4-8.2)
--- NOTE | 2019-08-21 17:47 | NUR ---
2nd page to Stiven Berumen for admission
[2019-08-21] MEDS ORDERED: IV NS 0.9% 250 ML BAG IV ONE (18:30)
--- NOTE | 2019-08-21 19:56 | NUR ---
REPORT GIVEN TO STEPH CHO FOR MERISSA.
--- NOTE | 2019-08-21 20:13 | NUR ---
CDL BULK DRIVER NOTES NO IV PUMPS AVAILABLE AT THIS TIME; NO DVT PUMPS ORDERED AT THIS TIME D/T BLE WOUNDS; AWAITING WOUND CONSULT; WILL INFORM MORNING SHIFT
--- NOTE | 2019-08-21 20:20 | NUR ---
PT TRANSPORTED TO [facility] [place] WITH EMT AND RN AT BEDSIDE. NAD NOTED DURING TRANSPORT.
[2019-08-21 20:30] VITALS: BP 112/71
--- NOTE | 2019-08-21 20:30 | NUR ---
DIRECTOR OF PLANNINGLENS GENERATOR NOTES RECEIVED REPORT FROM STEPH CALZADA 1999; PATIENT ARRIVED ON UNIT VIA GURNEY, ACCOMPANIED BY 2 ER STAFF; A/OX3; PATIENT BREATHING EVEN AND UNLABORED; TOLERATING ROOM AIR WELL; NO SOB NOTED; MEDICAL HX AND SKIN ASSESSMENT COMPLETED; TELE MONITOR ATTACHED AND READS AFIB 111BPM; R AC #20 SL INTACT AND PATENT; FLUSHING WELL, NO S/S OF REDNESS OR INFILTRATION; SAFETY PRECAUTIONS IMPLEMENTED; BED LOCKED IN LOW POSITION; SIDE RAILS X2; CALL LIGHT WITHIN REACH; AWAITING ADMISSION ORDERS; DR. JALYN STREETER AWARE; WILL CONT TO MONITOR
--- NOTE | 2019-08-21 21:52 | NUR ---
RETAIL DELIVERY DRIVER NOTES VTE SCORE OF 5, AWAITING DR. JALYN STREETER ORDER FOR CHEM PROPHYLAXIS;
[2019-08-21] MEDS ORDERED: ONDANSETRON HCL/PF 4 MG/2 ML VIAL IVP PRN (22:30)
[2019-08-21] MEDS ORDERED: ZOLPIDEM TARTRATE 5 MG TABLET PO PRN (22:30)
[2019-08-21] MEDS ORDERED: ACETAMINOPHEN 325 MG TABLET PO PRN (22:30)
--- NOTE | 2019-08-21 22:36 | NUR ---
DUST MILL OPERATOR NOTES AWAITING PERSONNEL WORKER PHARMACY TO VERIFY ORDERS IN ORDER TO ADMINISTER LOVENOX SCHEDULED;
[2019-08-21 22:55] LABS: APPEARANCE,URINE Clear (CLEAR); BILIRUBIN,URINE Negative (NEGATIVE); BLOOD, URINE Negative Ery/uL (NEGATIVE); COLOR,URINE Yellow (YELLOW); KETONES,URINE Negative (NEGATIVE); LEUKOCYTE ESTERASE ,URINE Negative (NEGATIVE); NITRITE, URINE Negative (NEGATIVE); PROTEIN,URINE Negative (NEGATIVE); UGLUCOSE Negative (NEGATIVE); UROBILINOGEN,URINE 0.2 EU/dL (0.2)
--- NOTE | 2019-08-21 23:08 | NUR ---
VP MOBILE PRODUCTS NOTES UPON ADMISSION PATIENT A/OX3; NOW, PATIENT A/OX2, PATIENT CONFUSED; PATIENT REPORTED, "YOU CAUGHT ME TRYING TO GET OUT OF HERE, I WANT TO GO HOME." PATIENT RE-ORIENTED, PATIENT RESTING IN BED COMFORTABLY AND WILL TRY TO SLEEP; WILL CONT TO MONITOR
[2019-08-22] VITALS: BP_SYST 113; BP_SYST 118; BP_DIAS 61; BP_DIAS 72
[2019-08-22] MEDS: IV NS 0.9% 1,000 ML IV PRN (03:31)
[2019-08-22 04:00] VITALS: BP 129/77
--- NOTE | 2019-08-22 04:32 | NUR ---
ACCOUNT LEADER NOTES PATIENT IV SITE R AC #20 INFILTRATED; IV TIP INTACT; NEW IV ACCESS SITE OBTAINED, L FA # 22, INTACT AND PATENT; FLUSHING WELL, NO S/S OF REDNESS OR INFILTRATION; WILL CONT TO MONITOR
--- NOTE | 2019-08-22 04:43 | NUR ---
FRIT COATER NOTES PATIENT HAS BILATERAL LOWER EXTREMITY EDEMA/WOUNDS; AWAITING WOUND CONSULT; DVT PUMPS CONTRAINDICATED AT THIS TIME; PROOF TESTER AWARE
--- NOTE | 2019-08-22 06:35 | NUR ---
ENGINEERING MGR CLOSING NOTES PATIENT RESTING IN BED COMFORTABLY; BREATHING EVEN AND UNLABORED; NO SOB NOTED; TOLERATING ROOM AIR WELL; A/OX2-3, SOMETIMES BECOMES CONFUSED; TELE MONITOR A FIB WITH OCCASIONAL PVCS, 90BPM-111BPM; L FA # 22 INTACT AND PATENT; NO S/S OF REDNESS OR INFILTRATION NOTED; ALL NEEDS RENDERED; AWAITING WOUND CONSULT; WILL INFORM ONCOMING SHIFT; ALL NEEDS RENDERED; ABLE TO MAKE NEEDS KNOWN; SAFETY PRECAUTIONS IMPLEMENTED; BED LOCKED IN LOW POSITION; SIDE RAILS X2; CALL LIGHT WITHIN REACH; WILL ENDORSE MERISSA TO ONCOMING NURSE
[2019-08-22 07:00] LABS: BASOPHILS % (AUTO) 0.1 % (0.0-2.0); EOSINOPHILS % (AUTO) 0.9 % (0.0-6.0); HEMATOCRIT 39 % (39-51); HEMOGLOBIN 12.9 g/dL (13.5-17.5); LYMPHOCYTES # (AUTO) 0.6 /CMM (0.8-4.8); LYMPHOCYTES % (AUTO) 6.6 % (20.0-44.0); MEAN CORPUSCULAR HGB CONC 34 g/dl (31.0-36.0); MEAN CORPUSCULAR VOLUME 82 fL (80-96); MONOCYTES # (AUTO) 0.6 /CMM (0.1-1.30); MONOCYTES % (AUTO) 7.3 % (2.0-12.0); NEUTROPHILS # (AUTO) 7.5 /CMM (1.8-8.9); NEUTROPHILS % (AUTO) 85.1 % (43.0-81.0); PLATELET COUNT (AUTO) 159 /CMM (150-450); RED BLOOD CELL COUNT(AUTO) 4.69 MIL/uL (4.5-6.0); WHITE BLOOD COUNT (AUTO) 8.8 K/uL (4.3-11.0)
[2019-08-22 07:28] LABS: ALBUMIN 3.3 g/dL (3.4-5.0); BILIRUBIN,TOTAL 1.5 mg/dL (0.2-1.0); CALCIUM, SERUM 8.4 mg/dL (8.5-10.1); MAGNESIUM 1.9 mg/dL (1.8-2.4); TOTAL PROTEIN, SERUM 6.4 g/dL (6.4-8.2)
[2019-08-22 08:00] VITALS: BP 125/86
--- NOTE | 2019-08-22 08:00 | NUR ---
ms rn received patient,awake,alertx2, w/ confusion at times, denies pain at this time will monitor patient.
--- NOTE | 2019-08-22 08:52 | NUR ---
WOUND CARE CONSULT: PT PRESENTS WITH REDNESS AND DRY WOUNDS TO LOWER EXTREMITIES, PRESENT ON ADMISSION. RECOMMEND DPM CONSULT. DR FRANCISCO NOTIFIED OF CONSULT REQUEST. RECOMMENDATIONS MADE FOR SKIN PROTECTION. DISCUSSED WITH NURSING STAFF. WILL SEE PRN. KING IN AGREEMENT WITH PLAN OF CARE. SKIN IS FRAGILE AND DRY. CURRENT VIVIEN SCORE IS 17.
[2019-08-22] MEDS ORDERED: DILTIAZEM HCL CD 240 MG PO SCH (09:00)
[2019-08-22] MEDS ORDERED: SOLIFENACIN SUCCINATE 5 MG TABLET PO SCH (09:00)
[2019-08-22] MEDS ORDERED: METOLAZONE 2.5 MG TABLET PO SCH (09:00)
--- NOTE | 2019-08-22 10:00 | NUR ---
ms briseno breakfast served,due meds given,tolerated well.
[2019-08-22] MEDS: PREGABALIN 25 MG CAPSULE PO SCH ×3 (10:23→18:05)
[2019-08-22] MEDS: ASCORBIC ACID 500 MG TABLET PO SCH (10:25)
[2019-08-22] MEDS: METOPROLOL SUCCINATE 25 MG TAB.SR.24H PO SCH (10:25)
[2019-08-22] MEDS: OXYBUTYNIN CHLORIDE 5 MG TABLET PO SCH ×3 (10:26→18:04)
[2019-08-22] MEDS: POTASSIUM CHLORIDE 20 MEQ TAB.PRT.SR PO SCH (10:26)
[2019-08-22] MEDS: predniSONE 20 MG TABLET PO SCH (10:26)
[2019-08-22] MEDS: ATORVASTATIN 10 MG TABLET PO SCH (10:26)
[2019-08-22] MEDS: PANTOPRAZOLE 40 MG TABLET.DR PO SCH (10:33)
[2019-08-22] MEDS: MINERAL OIL/PETROLATUM,WHITE 120 GM JAR TP SCH (10:34)
[2019-08-22] MEDS: Z GUARD REMEDY 2 OZ OINT TP PRN (10:34)
[2019-08-22] MEDS: DILTIAZEM HCL CD 180 MG PO SCH (10:34)
[2019-08-22] MEDS: DUTASTERIDE (0.5 MG) 0.5 MG CAPSULE PO SCH (10:35)
[2019-08-22] MEDS: ENOXAPARIN SODIUM 30 MG/0.3 ML DISP.SYRIN SQ SCH (10:42)
--- NOTE | 2019-08-22 11:00 | NUR ---
ms suzanna lock came to see and evaluate patient w/ orders made and carried out.
[2019-08-22] MEDS: POTASSIUM CHLORIDE 20 MEQ TAB.PRT.SR PO ONE ×2 (11:06→15:36)
[2019-08-22] MEDS ORDERED: K PHOS NEUTRAL 250 MG TABLET PO ONE ×2 (11:30→17:00)
[2019-08-22] MEDS ORDERED: POTASSIUM CHLORIDE 20 MEQ TAB.PRT.SR PO ONE (15:00)
[2019-08-22 16:20] VITALS: BP 117/74
[2019-08-22] MEDS: ENSURE ENLIVE CHOC 237 ML CAN PO SCH (17:00)
--- NOTE | 2019-08-22 17:03 | NUR ---
ms rn on bed, no distress ,noted.
[2019-08-22] MEDS ORDERED: FUROSEMIDE 40 MG TABLET PO SCH (18:00)
[2019-08-22] MEDS: TAMSULOSIN 0.4 MG CAP.SR.24H PO SCH (18:04)
--- NOTE | 2019-08-22 19:40 | NUR ---
MS RN OPENING NOTES RECEIVED PATIENT RESTING IN BED COMFORTABLY; A/OX2; PATIENT CONFUSED; BREATHING EVEN AND UNLABORED; NO SOB NOTED; PATIENT TOLERATING ROOM AIR WELL; L FA # 22 INTACT AND PATENT; FLUSHING WELL, NO S/S OF REDNESS OR INFILTRATION NOTED; PATIENT TOLERATING IVF WELL; SAFETY PRECAUTIONS IMPLEMENTED; BED LOCKED IN LOW POSITION; SIDE RAILS X2; CALL LIGHT WITHIN REACH; WILL CONT TO MONITOR
[2019-08-22 20:00] VITALS: BP 113/72
[2019-08-23] MEDS: IV NS 0.9% 1,000 ML IV PRN (01:01)
--- NOTE | 2019-08-23 06:51 | NUR ---
MS RN CLOSING NOTES PATIENT RESTING IN BED COMFORTABLY; A/OX1-2, CONFUSED; BREATHING EVEN AND UNLABORED; PATIENT TOLERATING ROOM AIR WELL; NO SOB NOTED; L FA # 20 INTACT AND PATENT, INFUSING NS @ 75ML/HR; PATIENT TOLERATING IVF WELL; ALL NEEDS RENDERED; SAFETY PRECAUTIONS IMPLEMENTED; BED LOCKED IN LOW POSITION; SIDE RAILS X3; CALL LIGHT WITHIN REACH; WILL ENDORSE MERISSA TO ONCOMING SHIFT
--- NOTE | 2019-08-23 07:30 | NUR ---
MS/RN Opening note Patient received from reporter anchor. A/O X2-3, vital signs stable, no fevers noted. Heplock to left forearm with normal saline infusing at 75ml/hr. Denies any pain or discomfort. Safety measures in place, bed in low setting, side railsX3 in upright position. Bed alarm switched on as patient valorie risk of fall. Call light within reach, will continue to monitor and ensure safety.
[2019-08-23 07:38] LABS: ALBUMIN 3.2 g/dL (3.4-5.0); BILIRUBIN,TOTAL 1.4 mg/dL (0.2-1.0); CALCIUM, SERUM 8.5 mg/dL (8.5-10.1); CREATININE 0.8 mg/dL (0.6-1.3); PHOSPHORUS 1.7 mg/dL (2.5-4.9); POTASSIUM 2.9 mmol/L (3.5-5.1); TOTAL PROTEIN, SERUM 6.3 g/dL (6.4-8.2)
[2019-08-23 08:00] VITALS: BP 128/75
[2019-08-23] MEDS: ENSURE ENLIVE CHOC 237 ML CAN PO SCH ×2 (08:00→17:30)
[2019-08-23] MEDS ORDERED: POTASSIUM CHLORIDE 20 MEQ TAB.PRT.SR PO ONE ×3 (08:30→18:00)
[2019-08-23] MEDS: ATORVASTATIN 10 MG TABLET PO SCH (08:41)
[2019-08-23] MEDS: ASCORBIC ACID 500 MG TABLET PO SCH (08:41)
[2019-08-23] MEDS: PREGABALIN 25 MG CAPSULE PO SCH ×3 (08:41→17:14)
[2019-08-23] MEDS: PANTOPRAZOLE 40 MG TABLET.DR PO SCH (08:41)
[2019-08-23] MEDS: OXYBUTYNIN CHLORIDE 5 MG TABLET PO SCH ×3 (08:42→17:14)
[2019-08-23] MEDS: DILTIAZEM HCL CD 180 MG PO SCH (08:42)
[2019-08-23] MEDS: DUTASTERIDE (0.5 MG) 0.5 MG CAPSULE PO SCH (08:42)
[2019-08-23] MEDS: predniSONE 20 MG TABLET PO SCH (08:43)
[2019-08-23] MEDS: POTASSIUM CHLORIDE 20 MEQ TAB.PRT.SR PO SCH (08:43)
[2019-08-23] MEDS: METOPROLOL SUCCINATE 25 MG TAB.SR.24H PO SCH (08:43)
[2019-08-23] MEDS: MINERAL OIL/PETROLATUM,WHITE 120 GM JAR TP SCH (08:53)
[2019-08-23] MEDS: ENOXAPARIN SODIUM 30 MG/0.3 ML DISP.SYRIN SQ SCH (08:53)
--- NOTE | 2019-08-23 09:00 | NUR ---
MS/RN Medications Morning medications administered as ordered.
--- NOTE | 2019-08-23 09:36 | NUR ---
MS/RN S/B David Cisneros DNP Seen by DNP - potassium to be replaced orally, physical therapy evaluation. Discharge planning to SNF in morning. Family requesting patient be placed at [facility].
[2019-08-23] MEDS ORDERED: K PHOS NEUTRAL 250 MG TABLET PO ONE (10:00)
--- NOTE | 2019-08-23 12:37 | NUR ---
MS/RN Physical therapy Able to ambulate using FWW with PT
--- NOTE | 2019-08-23 14:00 | NUR ---
MS/RN S/B Dr Siddiqi Seen by Dr Siddiqi - zelda tomlin, orthostatic blood pressure every shift.
[2019-08-23] MEDS: HYDROCODONE/APAP 10/325MG 1 EA TABLET PO PRN (15:05)
[2019-08-23 16:00] VITALS: BP 116/65
--- NOTE | 2019-08-23 16:00 | NUR ---
MS/RN S/B Dr Lucero Seen cby Dr Lucero - acute kidney injury improving, discontinue IVF.
[2019-08-23] MEDS: TAMSULOSIN 0.4 MG CAP.SR.24H PO SCH (17:13)
--- NOTE | 2019-08-23 18:12 | NUR ---
MS/RN End note Patient remains in stable condition, discharge planning tomorrow once blood results shoe potassium back within normal range. All medications administered as ordered, last pain medication at 1500 ([facility]). Safety measures in place, call light within reach, will continue to monitor and ensure safety.
--- NOTE | 2019-08-23 19:30 | NUR ---
MS RN NOTES RECEIVED ON BED A/O X1-2,BREATHING REGULAR,NOT IN ANY FORM OF DISTRESS,SALINE LOCK LEFT FOREARM INTACT AND PATENT.FALL RISK,BED ALARM TRIGGERED,BED ON LOWEST POSITION AND LOCKED.NOTED MULTIPLE SKIN DISCOLORATION ON BOTH UPPER AND LOWER EXTREMITIES.CALL LIGHT IN REACH,NEEDS ANTICIPATED.
[2019-08-23 20:00] VITALS: BP 98/49
[2019-08-23 20:31] VITALS: BP 98/49
--- NOTE | 2019-08-24 00:25 | NUR ---
MS RN NOTES AWAKE,C/O GENERALIZED PAIN 8/10 ON PAIN SCALE.NORCO 10/325MG,1 TAB PO GIVEN PER PATIENT REQUEST.
[2019-08-24] MEDS: HYDROCODONE/APAP 10/325MG 1 EA TABLET PO PRN ×2 (00:29→08:46)
[2019-08-24 06:00] VITALS: BP 111/80
[2019-08-24 06:01] VITALS: BP 114/66
--- NOTE | 2019-08-24 06:12 | NUR ---
MS RN NOTES ON BE A/O X1-2,WITH EPISODE OF CONFUSION,CONSTANT RE ORIENTATION RENDERED.NORCO EFFECTIVE FOR PAIN MANAGEMENT.STILL CALLING FOR NURSE Q 5 MINUTES FOR SIMPLE THINGS.CALL LIGHT IN REACH,NEEDS ATTENDED.
[2019-08-24 06:57] LABS: CALCIUM, SERUM 8.7 mg/dL (8.5-10.1); CREATININE 0.8 mg/dL (0.6-1.3); POTASSIUM 3.8 mmol/L (3.5-5.1)
--- NOTE | 2019-08-24 07:20 | NUR ---
RN opening note: Received patient in bed and awake. Alert and oriented x2. Able to make needs known. On room air @ 95% saturation, No SOB and not in respiratory distress. Patient appears comfortable and no pain reported at the moment. IV site clean, dry, patent and intact. call light in reach. Bed locked, low and at semi-garcia's position. Side rails up x3. Safety ensured and observed. Will continue to monitor.
--- NOTE | 2019-08-24 07:30 | NUR ---
RN opening note: Received patient in bed. Awake, alert and oriented x 3. On cont. 02 via NC @ 2lpm with saturation of 97% noted. No SOB and not in respiratory distress. Appears comfortable and relaxed, no pain noted nor reported. [place] catheter draining yellow urine. IV site clean, dry, patent and intact with infusion of D5NS @ 50mls/hr running and being tolerated well. call light in reach. Bed locked, low and at semi-garcia's position. Side rails up x3. Safety ensured and observed. Will continue to monitor. Addendum: 08/24/19 at 1535 by GABY DUNCAN RN charted for wrong patient. intended for 309-2
[2019-08-24 08:00] VITALS: BP 136/78
[2019-08-24] MEDS: ENSURE ENLIVE CHOC 237 ML CAN PO SCH ×2 (08:24→16:50)
[2019-08-24] MEDS: PANTOPRAZOLE 40 MG TABLET.DR PO SCH (08:24)
[2019-08-24] MEDS: METOPROLOL SUCCINATE 25 MG TAB.SR.24H PO SCH (08:44)
[2019-08-24] MEDS: ATORVASTATIN 10 MG TABLET PO SCH (08:44)
[2019-08-24] MEDS: ASCORBIC ACID 500 MG TABLET PO SCH (08:45)
[2019-08-24] MEDS: DILTIAZEM HCL CD 180 MG PO SCH (08:45)
[2019-08-24] MEDS: PREGABALIN 25 MG CAPSULE PO SCH ×3 (08:45→16:50)
[2019-08-24] MEDS: predniSONE 20 MG TABLET PO SCH (08:45)
[2019-08-24] MEDS: OXYBUTYNIN CHLORIDE 5 MG TABLET PO SCH ×3 (08:46→16:50)
[2019-08-24] MEDS: POTASSIUM CHLORIDE 20 MEQ TAB.PRT.SR PO SCH (08:46)
[2019-08-24] MEDS: DUTASTERIDE (0.5 MG) 0.5 MG CAPSULE PO SCH (08:52)
[2019-08-24] MEDS: MINERAL OIL/PETROLATUM,WHITE 120 GM JAR TP SCH (09:00)
[2019-08-24] MEDS: ENOXAPARIN SODIUM 30 MG/0.3 ML DISP.SYRIN SQ SCH (09:00)
[2019-08-24 16:00] VITALS: BP 113/70
[2019-08-24] MEDS: TAMSULOSIN 0.4 MG CAP.SR.24H PO SCH (17:31)
--- NOTE | 2019-08-24 19:21 | NUR ---
RN closing note: No acute changes noted on shift. Patient remains in bed and awake. Aert and oriented x2. Able to make needs known. On room air @ 95% saturation, No SOB and not in respiratory distress. Patient appears comfortable and no pain reported at the moment. IV site clean, dry, patent and intact. call light in reach. Bed locked, low and at semi-garcia's position. Side rails up x3. Safety ensured and observed. Due medications given. Treatment done as ordered. Endorsed to oncoming shift for MERISSA.
--- NOTE | 2019-08-24 19:30 | NUR ---
RN OPENING NOTE RECEIVED PT IN BED, IN SEMI- FOWLERS POSITION. A/O X 2. PT ON RA IN NO RESPIRATORY DISTRESS, NO C/O PAIN AT THIS TIME. IV TO LFA PATENT AND INTACT, FLUSHING WELL/ CALL LIGHT WITHIN REACH, SIDE RAILS UP X 3, BED ALARM ON. BED LOCKED AND IN LOWEST POSITION. WILL CONTINUE TO MONITOR PT.
[2019-08-24 20:00] VITALS: BP 105/68
--- NOTE | 2019-08-25 06:51 | NUR ---
RN CLOSING NOTE PT CURRENTLY IN BED ASLEEP, ON RA IN NO RESPIRATORY DISTRESS, NO C/O PAIN DURING SHIFT. IV TO LFA PATENT AND INTACT, FLUSHING WELL. ALL NEEDS MET DURING SHIFT, CALL LIGHT WITHIN REACH, SIDE RAILS UP X 3, BED ALARM ON. BED LOCKED AND IN LOWEST POSITION. ENDORSED TO AM RN FOR MERISSA.
--- NOTE | 2019-08-25 07:30 | NUR ---
m/s comparator operator: initial assessment received pt in bed awake, a/ox2-3. no c/o pain or any discomfort at this time. no apparent distress noted. instructed to call for assistance.
[2019-08-25 08:00] VITALS: BP 147/83
[2019-08-25] MEDS: ENSURE ENLIVE CHOC 237 ML CAN PO SCH ×2 (08:31→17:07)
[2019-08-25] MEDS: OXYBUTYNIN CHLORIDE 5 MG TABLET PO SCH ×3 (08:32→16:51)
[2019-08-25] MEDS: DILTIAZEM HCL CD 180 MG PO SCH (08:32)
[2019-08-25] MEDS: PANTOPRAZOLE 40 MG TABLET.DR PO SCH (08:32)
[2019-08-25] MEDS: ASCORBIC ACID 500 MG TABLET PO SCH (08:32)
[2019-08-25] MEDS: METOPROLOL SUCCINATE 25 MG TAB.SR.24H PO SCH (08:32)
[2019-08-25] MEDS: POTASSIUM CHLORIDE 20 MEQ TAB.PRT.SR PO SCH (08:33)
[2019-08-25] MEDS: ATORVASTATIN 10 MG TABLET PO SCH (08:33)
[2019-08-25] MEDS: predniSONE 20 MG TABLET PO SCH (08:33)
[2019-08-25] MEDS: PREGABALIN 25 MG CAPSULE PO SCH ×3 (08:33→16:51)
[2019-08-25] MEDS: DUTASTERIDE (0.5 MG) 0.5 MG CAPSULE PO SCH (08:34)
[2019-08-25] MEDS: Z GUARD REMEDY 2 OZ OINT TP PRN (08:35)
[2019-08-25] MEDS: HYDROCODONE/APAP 10/325MG 1 EA TABLET PO PRN ×2 (08:37→16:52)
--- NOTE | 2019-08-25 08:37 | NUR ---
m/s ship erector: notes c/o 10/22 virgilio leg pain. medicated with norco 10/325 1 tab po as ordered. instructed to call for assistance.
[2019-08-25] MEDS: ENOXAPARIN SODIUM 30 MG/0.3 ML DISP.SYRIN SQ SCH (08:40)
[2019-08-25] MEDS: MINERAL OIL/PETROLATUM,WHITE 120 GM JAR TP SCH (08:40)
--- NOTE | 2019-08-25 09:30 | NUR ---
m/s ux researcher: md visit seen by dr. garcia. pt for d'c planning to snf.
--- NOTE | 2019-08-25 09:37 | NUR ---
m/s whale trainer: notes pt verbalized relief of leg pain. no distress noted. will continue to monitor.
--- NOTE | 2019-08-25 10:00 | NUR ---
m/s court usher: nephro f/u seen by dr. morillo at this time.
--- NOTE | 2019-08-25 13:00 | NUR ---
m/s drain tile machine operator: dpm f/u seen by dr. tejada.
[2019-08-25 15:57] VITALS: BP 100/65
--- NOTE | 2019-08-25 16:52 | NUR ---
m/s engineering mgr: notes c/o 10/22 virgilio leg pain. medicated with norco 10/325 1 tab po as ordered. instructed to call for assistance.
[2019-08-25] MEDS: TAMSULOSIN 0.4 MG CAP.SR.24H PO SCH (17:12)
--- NOTE | 2019-08-25 17:52 | NUR ---
m/s textile clothing and footwear mechanic: notes pt verbalized relief of leg pain. no distress noted. will continue to monitor.
--- NOTE | 2019-08-25 19:10 | NUR ---
m/s corner block cutter: notes report given to julienne (suzanna) for continuity of care.
--- NOTE | 2019-08-25 19:20 | NUR ---
RN PM OPENING NOTES REPORT RECIEVED FROM ANATOLIY JUAREZ. PT AWAKE, A AND ORIENTED X3 PT REPORTS MINOR DISCOMFORT IN LEGS 3/10 PT BREATHING EVEN AND UNLABORED ON RA. BED DOWN LICKED SRX3 VERBALIZED UNDERSTANDING TO CALL FOR ASSISTANCE NEEDED. WILL CONT TO MONITOR.
[2019-08-25 20:00] VITALS: BP 93/57
[2019-08-26] MEDS: HYDROCODONE/APAP 10/325MG 1 EA TABLET PO PRN ×2 (00:12→10:17)
[2019-08-26 08:00] VITALS: BP 115/72
--- NOTE | 2019-08-26 08:00 | NUR ---
MS/RN NOTE THE PATIENT IS RECEIVED IN BED. THE PATIENT IS ALERT AND ORIENTED X3. DENIES PAIN. IN ROOM AIR AND DENIES SOB. RESPIRATION REGULAR AND UNLABORED. LFA G 22 PATENT AND SALINE LOCKED. BED LOW AND LOCKED. SIDE RAILS UP X3. CALL LIGHT WITHIN REACH. WILL CONTINUE TO MONITOR.
[2019-08-26] MEDS: PANTOPRAZOLE 40 MG TABLET.DR PO SCH (08:45)
[2019-08-26] MEDS: POTASSIUM CHLORIDE 20 MEQ TAB.PRT.SR PO SCH (08:45)
[2019-08-26] MEDS: OXYBUTYNIN CHLORIDE 5 MG TABLET PO SCH ×3 (08:45→17:15)
[2019-08-26] MEDS: ASCORBIC ACID 500 MG TABLET PO SCH (08:46)
[2019-08-26] MEDS: predniSONE 20 MG TABLET PO SCH (08:46)
[2019-08-26] MEDS: ATORVASTATIN 10 MG TABLET PO SCH (08:46)
[2019-08-26] MEDS: PREGABALIN 25 MG CAPSULE PO SCH ×3 (08:46→17:15)
[2019-08-26] MEDS: DILTIAZEM HCL CD 180 MG PO SCH (08:47)
[2019-08-26] MEDS: METOPROLOL SUCCINATE 25 MG TAB.SR.24H PO SCH (08:47)
[2019-08-26] MEDS: MINERAL OIL/PETROLATUM,WHITE 120 GM JAR TP SCH (08:50)
[2019-08-26] MEDS: ENSURE ENLIVE CHOC 237 ML CAN PO SCH ×2 (08:50→17:15)
[2019-08-26] MEDS: DUTASTERIDE (0.5 MG) 0.5 MG CAPSULE PO SCH (08:50)
[2019-08-26] MEDS: ENOXAPARIN SODIUM 30 MG/0.3 ML DISP.SYRIN SQ SCH (08:56)
[2019-08-26 16:00] VITALS: BP 116/67
[2019-08-26] MEDS: TAMSULOSIN 0.4 MG CAP.SR.24H PO SCH (17:15)
--- NOTE | 2019-08-26 18:18 | NUR ---
MS/RN NOTE THE PATIENT IS ALERT AND ORIENTED X3 WITH EPISODES OF FORGETFULNESS. DENIES PAIN. IN ROOM AIR AND SATURATION IS AT 96%. DENIES SOB. RESPIRATION REGULAR AND UNLABORED. THE PATIENT IN NO APPARENT DISTRESS. LFA G 22 PATENT AND SALINE LOCKED. BED LOW AND LOCKED. SIDE RAILS UP X2. CALL LIGHT WITHIN REACH. WILL ENDORSE TO RADIO TELEVISION ANNOUNCER.
--- NOTE | 2019-08-26 19:10 | NUR ---
MS/RN NOTE REPORT RECIEVED FROM MAYITO RN. THE PATIENT IS ALERT AND ORIENTED X3 WITH EPISODES OF FORGETFULNESS. PATIENT SITTING IN BED REVIEWED POC TO DISHCARGE TO SNF VERBALIZED UNDERSTANDING. PT DENIES PAIN AT THIS TIME. ON ROOM AIR IN NO APPARENT RESP DISTRESS BREATHING EVEN AND UNLABORED. DENIES SOB. THE PATIENT IN NO APPARENT DISTRESS. LFA G 22 FLUSHED PATENT AND SALINE LOCKED. BED LOW AND LOCKED. SIDE RAILS UP X2. CALL LIGHT WITHIN REACH. BED ALARM ACTIVE WILL CONT TO MONITOR.
[2019-08-26 20:29] VITALS: BP 104/64
--- NOTE | 2019-08-27 07:30 | NUR ---
MS/RN OPENING NOTES RECEIVED PATIENT IN BED AND AWAKE. THE PATIENT IS ALERT AND ORIENTED X3. DENIES PAIN AT THIS TIME. PATIENT IS ON ROOM AIR AND DENIES SOB. RESPIRATION REGULAR AND UNLABORED. LFA G #22 PATENT AND SALINE LOCKED. BED HAS BEEN PLACED IN THE LOWEST AND LOCKED. SIDE RAILS UP X3. CALL LIGHT WITHIN REACH. WILL CONTINUE TO MONITOR PATIENT THROUGH OUT SHIFT.
[2019-08-27 08:00] VITALS: BP 151/79
[2019-08-27] MEDS: ENOXAPARIN SODIUM 30 MG/0.3 ML DISP.SYRIN SQ SCH (09:01)
[2019-08-27] MEDS: OXYBUTYNIN CHLORIDE 5 MG TABLET PO SCH ×3 (09:02→17:45)
[2019-08-27] MEDS: ASCORBIC ACID 500 MG TABLET PO SCH (09:02)
[2019-08-27] MEDS: PANTOPRAZOLE 40 MG TABLET.DR PO SCH (09:03)
[2019-08-27] MEDS: POTASSIUM CHLORIDE 20 MEQ TAB.PRT.SR PO SCH (09:03)
[2019-08-27] MEDS: DILTIAZEM HCL CD 180 MG PO SCH (09:03)
[2019-08-27] MEDS: predniSONE 20 MG TABLET PO SCH (09:03)
[2019-08-27] MEDS: ATORVASTATIN 10 MG TABLET PO SCH (09:03)
[2019-08-27] MEDS: PREGABALIN 25 MG CAPSULE PO SCH ×3 (09:04→17:43)
[2019-08-27] MEDS: METOPROLOL SUCCINATE 25 MG TAB.SR.24H PO SCH (09:06)
[2019-08-27] MEDS: ENSURE ENLIVE CHOC 237 ML CAN PO SCH ×2 (09:08→17:44)
[2019-08-27] MEDS: DUTASTERIDE (0.5 MG) 0.5 MG CAPSULE PO SCH (09:16)
[2019-08-27] MEDS: MINERAL OIL/PETROLATUM,WHITE 120 GM JAR TP SCH (09:16)
[2019-08-27] MEDS: HYDROCODONE/APAP 10/325MG 1 EA TABLET PO PRN ×3 (10:44→21:46)
[2019-08-27 16:00] VITALS: BP 101/77
[2019-08-27] MEDS: TAMSULOSIN 0.4 MG CAP.SR.24H PO SCH (17:43)
--- NOTE | 2019-08-27 18:57 | NUR ---
MS/RN CLOSING NOTES PATIENT IS IN BED AND AWAKE. THE PATIENT IS ALERT AND ORIENTED X3. DENIES PAIN AT THIS TIME. PATIENT IS ON ROOM AIR AND DENIES SOB. RESPIRATION REGULAR AND UNLABORED. LFA G #22 PATENT AND SALINE LOCKED. BED HAS BEEN PLACED IN THE LOWEST AND LOCKED. SIDE RAILS UP X3. CALL LIGHT WITHIN REACH. WILL ENDORSE CARE TO BLASTING CONTRACT MINER.
[2019-08-27 20:31] VITALS: BP 102/62
--- NOTE | 2019-08-27 21:46 | NUR ---
NORCO ADMINISTERED PER PATEINT REQUEST FOR BILATERAL LEG PAIN RATED 8 OF TEN. PER PATIENT REQUEST.
[2019-08-28] MEDS: HYDROCODONE/APAP 10/325MG 1 EA TABLET PO PRN (02:01)
[2019-08-28 07:00] VITALS: BP 108/58
--- NOTE | 2019-08-28 07:35 | NUR ---
MS/RN OPENING NOTES RECEIVED PATIENT IS ON BED AND AWAKE AND WATCHING TV. THE PATIENT IS ALERT AND ORIENTED X3. DENIES PAIN AT THIS TIME. PATIENT IS ON ROOM AIR, RESPIRATION REGULAR AND UNLABORED, NO SOB NOTED. IV ACCESS AT LFA G #22 PATENT AND INTACT, SALINE LOCKED. BED HAS BEEN PLACED IN THE LOWEST AND LOCKED. SIDE RAILS UP X3. CALL LIGHT WITHIN REACH. WILL CONTINUE TO MONITOR.
[2019-08-28] MEDS: PANTOPRAZOLE 40 MG TABLET.DR PO SCH (07:50)
[2019-08-28] MEDS: ENSURE ENLIVE CHOC 237 ML CAN PO SCH ×2 (08:15→17:00)
[2019-08-28] MEDS: DUTASTERIDE (0.5 MG) 0.5 MG CAPSULE PO SCH (08:16)
[2019-08-28] MEDS: PREGABALIN 25 MG CAPSULE PO SCH ×3 (08:17→17:07)
[2019-08-28] MEDS: ATORVASTATIN 10 MG TABLET PO SCH (08:18)
[2019-08-28] MEDS: POTASSIUM CHLORIDE 20 MEQ TAB.PRT.SR PO SCH (08:18)
[2019-08-28] MEDS: OXYBUTYNIN CHLORIDE 5 MG TABLET PO SCH ×3 (08:19→17:07)
[2019-08-28] MEDS: ASCORBIC ACID 500 MG TABLET PO SCH (08:19)
[2019-08-28] MEDS: ENOXAPARIN SODIUM 30 MG/0.3 ML DISP.SYRIN SQ SCH (08:24)
[2019-08-28] MEDS: predniSONE 20 MG TABLET PO SCH (08:33)
[2019-08-28] MEDS: METOPROLOL SUCCINATE 25 MG TAB.SR.24H PO SCH (09:00)
[2019-08-28] MEDS: DILTIAZEM HCL CD 180 MG PO SCH (09:00)
[2019-08-28] MEDS: MINERAL OIL/PETROLATUM,WHITE 120 GM JAR TP SCH (09:32)
--- NOTE | 2019-08-28 09:33 | NUR ---
MS/RN NOTES PATIENT INITIAL BP 118/71 HR 54. RECHECK AFTER 30 MINUTES BP 108/58 HR 66. RECHECK AFTER 30 MINUTES BP 109/61 HR 63 DILTIAZEM 360MG AND METOPROLOL 50 MG PO IS ON HOLD. MD AND CHARGE NURSE IS AWARE. WILL CONTINUE TO MONITOR.
[2019-08-28 16:00] VITALS: BP 109/68
[2019-08-28] MEDS: TAMSULOSIN 0.4 MG CAP.SR.24H PO SCH (17:19)
--- NOTE | 2019-08-28 18:44 | NUR ---
MS/RN NOTES PATIENT IS ALERT AND ORIENTED X3. PATIENT DENIES PAIN AT THIS TIME. IN ROOM AIR AND SATURATION IS AT 96%. RESPIRATION REGULAR AND UNLABORED. THE PATIENT IN NO APPARENT RESPIRATORY DISTRESS NOTED. SEEN AND EXAMINED BY MD WITH ORDERS MADE AND CARRIED OUT. PATIENT DISCHARGED AT 1835 PATIENT WAS GIVEN DISCHARGED INSTRUCTIONS AND PATIENT VERBALIZED UNDERSTANDING. GIVE REPORT TO JUVENAL THE YARDER. THE PATIENT LEFT THE HOSPITAL IN STABLE CONDITION, HEAD OF TALENT MANAGEMENT BY 2 EMT VIA AMBULANCE.
== END 2019-08-28 18:36 | disposition home health service (06) | DRG 73 ==
LOC: ER 13:57 → TELE 19:41 → MED 08-22 07:55
PROVIDERS: ADMIT Nurse Practitioner Acute Care; ATTEND Nurse Practitioner Acute Care
DX: G90.8 Other disorders of autonomic nervous system (principal); N17.0 Acute kidney failure with tubular necrosis; D68.59 Other primary thrombophilia; E44.0 Moderate protein-calorie malnutrition; E86.0 Dehydration; R29.6 Repeated falls; R26.89 Other abnormalities of gait and mobility; I87.2 Venous insufficiency (chronic) (peripheral); E11.51 Type 2 diabetes mellitus with diabetic peripheral angiopathy without gangrene; E78.5 Hyperlipidemia, unspecified; D72.829 Elevated white blood cell count, unspecified; I50.9 Heart failure, unspecified; I11.0 Hypertensive heart disease with heart failure; I25.10 Atherosclerotic heart disease of native coronary artery without angina pectoris; I48.91 Unspecified atrial fibrillation; E11.42 Type 2 diabetes mellitus with diabetic polyneuropathy; E11.621 Type 2 diabetes mellitus with foot ulcer; Z95.2 Presence of prosthetic heart valve; Z90.49 Acquired absence of other specified parts of digestive tract; Z87.01 Personal history of pneumonia (recurrent); Z98.890 Other specified postprocedural states; G89.4 Chronic pain syndrome; Z79.899 Other long term (current) drug therapy; J44.9 Chronic obstructive pulmonary disease, unspecified; G47.33 Obstructive sleep apnea (adult) (pediatric); M19.90 Unspecified osteoarthritis, unspecified site; N40.0 Benign prostatic hyperplasia without lower urinary tract symptoms; E87.6 Hypokalemia; I35.0 Nonrheumatic aortic (valve) stenosis; L85.3 Xerosis cutis; L97.529 Non-pressure chronic ulcer of other part of left foot with unspecified severity; Z79.891 Long term (current) use of opiate analgesic; Z83.3 Family history of diabetes mellitus; Z82.49 Family history of ischemic heart disease and other diseases of the circulatory system; T14.8XXA Other injury of unspecified body region, initial encounter; X58.XXXA Exposure to other specified factors, initial encounter; Y92.9 Unspecified place or not applicable; T50.2X5A Adverse effect of carbonic-anhydrase inhibitors, benzothiadiazides and other diuretics, initial encounter
CPT/HCPCS: 36415; 71045-TC; 80048-TC; 80053-TC; 80061-TC; 80076-TC; 81000-TC; 83735-TC; 83880; 84100-TC; 84484-TC; 85025-TC; 85730-TC; 87081-TC; 87086-TC; 93970-TC; 97110-TC; 97116-TC; 97530-TC; G0378; J1650; J7030; J7050